=== PATIENT | female | born 1980 | race Two or more races ===

== ENCOUNTER 2016-07-30 12:28 | Emergency (ER) | payer OTHER ==
[2016-07-30 12:39] VITALS: BP 116/73; PULSE 81; TEMP 98.3; BMI 18.6
[2016-07-30] MEDS ORDERED: NAPROXEN 500 MG TABLET (FP) PO ONE (13:11)
[2016-07-30] MEDS ORDERED: NAPROXEN 500 MG TABLET (FP) ONE (13:15)
--- NOTE | 2016-07-30 13:16 | PDOC ---
History of Present Illness - General Chief Complaint: Pain Stated Complaint: RT ARM PAIN Time Seen by Provider: 07/30/16 12:59 History Source: Patient Exam Limitations: No Limitations - History of Present Illness Initial Comments: 07/30/16 13:11 My Chief Compliant: Right arm pain History of present illness: This is a 36-year-old female with no significant medical problems For right-sided carpal tunnel syndrome here today complaining of right upper arm pain that radiates down to her hand patient reports that she has numbness in her hand in the morning however she's had this since having carpal tunnel syndrome. Patient denies any neck pain. Patient denies any joint pain in her right arm and elbow or shoulder or hand. Patient has been taking Naprosyn 250 mg daily did not take today. Patient reports that this pain started after she was doing a lot of moving a few weeks ago of furniture and things since she had to move. 07/31/16 19:39 Timing/Duration: constant Past History - Past Medical History Allergies/Adverse Reactions: Allergies Allergy/AdvReac Type Severity Reaction Status Date / Time No Known Allergies Allergy Verified 07/30/16 12:36 Home Medications: Ambulatory Orders Sumatriptan Succinate [Imitrex -] 50 mg PO BID PRN 03/30/15 Naproxen [Naprosyn -] 500 mg PO BID PRN #14 tablet 07/30/16 Anemia: Yes - Psycho/Social/Smoking Cessation Hx Anxiety: Yes Suicidal Ideation: No Smoking Status: No Smoking History: Never smoked Have you smoked in the past 12 months: No Number of Cigarettes Smoked Daily: 0 Information on smoking cessation initiated: No Hx Alcohol Use: No Drug/Substance Use Hx: No Substance Use Type: None Review of Systems - Review of Systems Able to Perform ROS?: Yes Constitutional: No: Symptoms Reported HEENTM: No: Symptoms Reported Respiratory: No: Symptoms reported Cardiac (ROS): No: Symptoms Reported ABD/GI: No: Symptoms Reported : No: Symptoms Reported Musculoskeletal: Yes: Muscle Pain (rt. arm muscular pain upper and lower) Integumentary: No: Symptoms Reported Neurological: Yes: Paresthesia (rt. hand in morning) *Physical Exam - Vital Signs Last Vital Signs Temp Pulse Resp BP Pulse Ox 98.3 F 81 18 116/73 100 07/30/16 12:37 07/30/16 12:37 07/30/16 12:37 07/30/16 12:37 07/30/16 12:37 - Physical Exam General Appearance: Yes: Appropriately Dressed Neck: negative: Tender, Decreased range of motion, Lymphadenopathy (R), Lymphadenopathy (L), Rigidity, Tender lateral, Tender midline Comments:: 07/30/16 13:15 radial pulse rt. 4 + Extremity: positive: Normal Capillary Refill, Normal Inspection, Normal Range of Motion, Tender (rt upper arm and forearm muscular). negative: Swelling Integumentary: positive: Normal Color Neurologic: positive: Alert, Respond to painful stimul (rt. hand arm ), Other ( decreased strenght rt. hand 5/4) Medical Decision Making - Medical Decision Making 07/30/16 13:13 This is a 36-year-old female with no significant medical problems For right- sided carpal tunnel syndrome here today complaining of right upper arm pain that radiates down to her hand patient reports that she has numbness in her hand in the morning however she's had this since having carpal tunnel syndrome. Patient denies any neck pain. Patient denies any joint pain in her right arm and elbow or shoulder or hand. Patient has been taking Naprosyn 250 mg daily did not take today. Arm strain right Plan: Naprosyn 500 mg by mouth now then twice a day when necessary pain #14 Patient follow-up with orthopedist for further evaluation *DC/Admit/Observation/Transfer Diagnosis at time of Disposition: Strain of right upper arm Qualifiers: Encounter type: initial encounter Qualified Code(s): S46.911A - Strain of unspecified muscle, fascia and tendon at shoulder and upper arm level, right arm , initial encounter Strain of forearm, right Qualifiers: Encounter type: initial encounter Qualified Code(s): S56.911A - Strain of unspecified muscles, fascia and tendons at forearm level, right arm, initial encounter - Discharge Dispostion Disposition: HOME Condition at time of disposition: Stable - Prescriptions Prescriptions: Naproxen [Naprosyn -] 500 mg PO BID PRN #14 tablet PRN Reason: Pain - Referrals Referrals: Piotr Otoole MD [Staff Physician] - - Patient Instructions Additional Instructions: Follow-up with orthopedist as soon as possible for further evaluation Return to emergency room for worsening symptoms Avoid using right arm for lifting or pulling Patient voice understanding of discharge instructions and will questions were answered
== END 2016-07-30 14:10 | disposition home or self-care (01) ==
LOC: JERFT 12:28
DX: S46.911A Strain of unspecified muscle, fascia and tendon at shoulder and upper arm level, right arm, initial encounter (principal); S56.911A Strain of unspecified muscles, fascia and tendons at forearm level, right arm, initial encounter; G56.01 Carpal tunnel syndrome, right upper limb; X50.1XXA Overexertion from prolonged static or awkward postures, initial encounter; Y93.89 Activity, other specified; Y92.038 Other place in apartment as the place of occurrence of the external cause
CPT/HCPCS: 99281-25

== ENCOUNTER 2016-09-07 22:16 | Emergency (ER) | payer OTHER ==
[2016-09-07 22:33] VITALS: BP 102/50; PULSE 83; TEMP 97.8; BMI 18.6
[2016-09-07] MEDS ORDERED: IBUPROFEN 600 MG TABLET (FP) PO ONE ×2 (23:30→23:33)
--- NOTE | 2016-09-07 23:30 | PDOC ---
History of Present Illness - General History Source: Patient Exam Limitations: No Limitations - History of Present Illness Initial Comments: 09/07/16 23:32 The patient is a 36 year old female with no significant past medical history, presenting to the Emergency Department with chest pain since this morning. The patient reports that she woke up this morning at about 8AM with chest tightness. She reports that through the day the chest pain became worse, for which she took advil. She describes the pain as at her chest, sternum, and breasts, exacerbated by twisting movements. She reports that she has previously had similar symptoms, and previously was told that her EKG reading is abnormal at baseline. The patient denies shortness of breath, or palpitations. Patient denies increased levels of activity. Patient denies fever, chills, or cough. Patient denies neck pain, or back pain. Patient denies nausea, vomiting, and diarrhea. Past Medical Hx: scoliosis <Heavenly Brenal - Last Filed: 09/08/16 00:00> <Natacha Salazar - Last Filed: 09/08/16 21:19> - General Chief Complaint: Chest Pain Stated Complaint: CHEST PAIN Time Seen by Provider: 09/07/16 22:33 Past History <Heavenly Bernal - Last Filed: 09/08/16 00:00> - Past Medical History Anemia: Yes - Psycho/Social/Smoking Cessation Hx Anxiety: Yes Suicidal Ideation: No Smoking Status: No Smoking History: Never smoked Have you smoked in the past 12 months: No Number of Cigarettes Smoked Daily: 0 Hx Alcohol Use: No Drug/Substance Use Hx: No Substance Use Type: None <Natacha Salazar - Last Filed: 09/08/16 21:19> - Past Medical History Allergies/Adverse Reactions: Allergies Allergy/AdvReac Type Severity Reaction Status Date / Time No Known Allergies Allergy Verified 09/07/16 22:26 Home Medications: Ambulatory Orders Sumatriptan Succinate [Imitrex -] 50 mg PO BID PRN 03/30/15 Naproxen [Naprosyn -] 500 mg PO BID PRN #14 tablet 07/30/16 Ibuprofen [Motrin -] 600 mg PO TID #21 tablet 09/07/16 Methocarbamol [Robaxin -] 500 mg PO TID #21 tablet 09/07/16 Review of Systems - Review of Systems Able to Perform ROS?: Yes Comments:: 09/07/16 23:32 GENERAL/CONSTITUTIONAL: No fever or chills. No weakness. HEAD, EYES, EARS, NOSE AND THROAT: No change in vision. No ear pain or discharge. No sore throat. CARDIOVASCULAR: + chest pain. No shortness of breath. RESPIRATORY: No cough, wheezing, or hemoptysis. GASTROINTESTINAL: No nausea, vomiting, diarrhea or constipation. GENITOURINARY: No dysuria, frequency, or change in urination. MUSCULOSKELETAL: No joint or muscle swelling or pain. No neck or back pain. SKIN: No rash NEUROLOGIC: No headache, vertigo, loss of consciousness, or change in strength/ sensation. ENDOCRINE: No increased thirst. No abnormal weight change. HEMATOLOGIC/LYMPHATIC: No anemia, easy bleeding, or history of blood clots. ALLERGIC/IMMUNOLOGIC: No hives or skin allergy. <Heavenly Bernal - Last Filed: 09/08/16 00:00> *Physical Exam - Vital Signs Last Vital Signs Temp Pulse Resp BP Pulse Ox 97.8 F 83 16 102/50 100 09/07/16 22:27 09/07/16 22:27 09/07/16 22:27 09/07/16 22:27 09/07/16 22:27 - Physical Exam Comments: 09/07/16 23:33 GENERAL: Awake, alert, and fully oriented, in no acute distress HEAD: No signs of trauma EYES: PERRLA, EOMI, sclera anicteric, conjunctiva clear ENT: Auricles normal inspection, hearing grossly normal, nares patent, oropharynx clear without exudates. Moist mucosa NECK: Normal ROM, supple, no lymphadenopathy, JVD, or masses LUNGS: Breath sounds equal, clear to auscultation bilaterally. No wheezes, and no crackles HEART: Regular rate and rhythm, normal S1 and S2, no murmurs, rubs or gallops CHEST: Tenderness of sternum and xiphoid. ABDOMEN: Soft, nontender, normoactive bowel sounds. No guarding, no rebound. No masses EXTREMITIES: Normal range of motion, no edema. No clubbing or cyanosis. No cords, erythema, or tenderness NEUROLOGICAL: Cranial nerves II through XII grossly intact. Normal speech, normal gait SKIN: Warm, Dry, normal turgor, no rashes or lesions noted. <Heavenly Bernal - Last Filed: 09/08/16 00:00> - Vital Signs Last Vital Signs Temp Pulse Resp BP Pulse Ox 97.8 F 83 16 102/50 100 09/07/16 22:27 09/07/16 22:27 09/07/16 22:27 09/07/16 22:27 09/07/16 22:27 <Natacha Salazar - Last Filed: 09/08/16 21:19> Medical Decision Making - Medical Decision Making 09/08/16 21:18 Pt comes with CP and SOB. She has normal CXR (except for scoliosis) and on exam pt has scoliosis and admits that she has a hx of scoliosis. She also has normal EKG. She has a normal exam. He pain is musculoskeletal. SHe will be discharged with NSAID and muscle relaxants. <Natacha Salazar - Last Filed: 09/08/16 21:19> *DC/Admit/Observation/Transfer - Attestations Scribe Attestion: 09/07/16 23:35 Documentation prepared by Heavenly Bernal, acting as medical territory manager for Natacha Salazar MD. <Heavenly Bernal - Last Filed: 09/08/16 00:00> - Discharge Dispostion Admit: No <Natacha Salazar - Last Filed: 09/08/16 21:19> Diagnosis at time of Disposition: Musculoskeletal chest pain, Scoliosis - Discharge Dispostion Disposition: HOME Condition at time of disposition: Stable - Prescriptions Prescriptions: Ibuprofen [Motrin -] 600 mg PO TID #21 tablet Methocarbamol [Robaxin -] 500 mg PO TID #21 tablet - Referrals Referrals: Latosha Darling MD [Primary Care Provider] - - Patient Instructions Printed Discharge Instructions: DI for Musculoskeletal Pain
--- NOTE | 2016-09-09 00:43 | EKG ---
Test Reason : Blood Pressure : / mmHG Vent. Rate : 085 BPM Atrial Rate : 085 BPM P-R Int : 126 ms QRS Dur : 092 ms QT Int : 366 ms P-R-T Axes : 059 066 053 degrees QTc Int : 435 ms NORMAL SINUS RHYTHM T WAVE ABNORMALITY, CONSIDER ANTERIOR ISCHEMIA ABNORMAL ECG WHEN COMPARED WITH ECG OF 21-AUG-2006 11:07, NO SIGNIFICANT CHANGE WAS FOUND Confirmed by BINH COLLINS MD ([id number]) on 09/09/2016 12:43:04 AM Referred By: Confirmed By:BINH COLLINS MD
== END 2016-09-08 00:04 | disposition home or self-care (01) ==
LOC: JER 22:16
DX: R07.89 Other chest pain (principal); M41.9 Scoliosis, unspecified
CPT/HCPCS: 71020-TC; 84703; 93005; 93010; 99283-25

== ENCOUNTER 2017-05-21 18:26 | Emergency (ER) | payer OTHER ==
[2017-05-21 18:43] VITALS: BP 126/70; PULSE 88; TEMP 97.4; BMI 18.6
--- NOTE | 2017-05-21 18:43 | PDOC ---
Rapid Medical Evaluation Chief Complaint: Pain Time Seen by Provider: 05/21/17 18:40 Medical Evaluation: Allergies Allergy/AdvReac Type Severity Reaction Status Date / Time No Known Allergies Allergy Verified 09/07/16 22:26 05/21/17 18:41 I have performed a brief in-person evaluation of this patient. The patient presents with a chief complaint of: Cough w/ pleuritic chest pain. Uses albuterol for URI associated bronshospasm. Non-smoker Pertinent physical exam findings:stable w/ clear chest/lungs I have ordered the following:nothing, proceed to FT for further eval The patient will proceed to the ED for further evaluation.
[2017-05-21] MEDS ORDERED: ALBUTEROL SO4 2.5/IPRATROPIUM 0.5 INH SOL 3 ML VIAL.NEB. NEB ONE (20:16)
[2017-05-21] MEDS ORDERED: predniSONE 20 MG TABLET (UD) PO ONE (20:16)
[2017-05-21] MEDS ORDERED: predniSONE 20 MG TABLET (UD) ONE (20:23)
--- NOTE | 2017-05-21 20:23 | PDOC ---
History of Present Illness - General Chief Complaint: Pain Stated Complaint: PAIN Time Seen by Provider: 05/21/17 18:40 History Source: Patient Exam Limitations: No Limitations - History of Present Illness Initial Comments: 05/21/17 20:17 came for evaluation of cough and chest tightness x 1 week. States felt fevers ad chills over weekend and coughing yellowish phlegm,. Timing/Duration: reports: getting worse, week Severity: reports: mild, moderate Modifying Factors: improves with: albuterol nebulizer Associated Symptoms: reports: cough, fever/chills, nasal congestion, nasal drainage, wheezing Past History - Travel Traveled outside of the country in the last 30 days: No Close contact w/someone who was outside of country & ill: No - Past Medical History Allergies/Adverse Reactions: Allergies Allergy/AdvReac Type Severity Reaction Status Date / Time No Known Allergies Allergy Verified 05/21/17 18:43 Home Medications: Ambulatory Orders Albuterol 0.083% Nebulizer Karlee [Ventolin 0.083% Nebulizer Soln -] 1 neb NEB Q4H PRN #30 vial 05/21/17 Azithromycin [Zithromax -] 250 mg PO UTDICT #6 tab 05/21/17 Prednisone [Deltasone -] 20 mg PO BID #10 tablet 05/21/17 Anemia: Yes COPD: No - Suicide/Smoking/Psychosocial Hx Smoking Status: No Smoking History: Never smoked Have you smoked in the past 12 months: No Number of Cigarettes Smoked Daily: 0 Hx Alcohol Use: No Drug/Substance Use Hx: No Substance Use Type: None Respiratory Specific PMHX - Complaint Specific PMHX Bronchitis: No Pneumonia: No Review of Systems - Review of Systems Able to Perform ROS?: Yes Is the patient limited Cypriot proficient: Yes Constitutional: Yes: Symptoms Reported, See HPI, Chills, Fever, Malaise HEENTM: Yes: Symptoms Reported Respiratory: Yes: Symptoms reported, See HPI, Cough, Shortness of Breath, Wheezing Musculoskeletal: Yes: Symptoms Reported All Other Systems: Reviewed and Negative *Physical Exam - Vital Signs Last Vital Signs Temp Pulse Resp BP Pulse Ox 97.4 F L 88 20 126/70 97 05/21/17 18:40 05/21/17 18:40 05/21/17 18:40 05/21/17 18:40 05/21/17 18:40 - Physical Exam General Appearance: Yes: Nourished, Appropriately Dressed, Apparent Distress HEENT: positive: JARRELL, Normal ENT Inspection, TMs Normal, Pharynx Normal Neck: positive: Supple. negative: Tender, Lymphadenopathy (R), Lymphadenopathy (L) Respiratory/Chest: positive: Normal Breath Sounds, Wheezing (tight insp breathsounds with faint wheezing ) Cardiovascular: positive: Regular Rate Gastrointestinal/Abdominal: positive: Soft. negative: Tender Extremity: positive: Normal Inspection, Normal Range of Motion Integumentary: positive: Normal Color, Dry, Warm, Pale Neurologic: positive: literary writer II-XII NML intact, Fully Oriented, Alert, Normal Mood/ Affect, Normal Response, Motor Strength /5 Progress Note - Progress Note Progress Note: Improved after 40 mg of prednisone and DuoNeb. We'll treat with short course of prednisone continue albuterol nebulizers at home and Zithromax *DC/Admit/Observation/Transfer Diagnosis at time of Disposition: Upper respiratory infection Qualifiers: URI type: unspecified URI Qualified Code(s): J06.9 - Acute upper respiratory infection, unspecified - Discharge Dispostion Disposition: HOME Condition at time of disposition: Stable Admit: No - Prescriptions Prescriptions: Prednisone [Deltasone -] 20 mg PO BID #10 tablet Albuterol 0.083% Nebulizer Karlee [Ventolin 0.083% Nebulizer Soln -] 1 neb NEB Q4H PRN #30 vial PRN Reason: Cough Azithromycin [Zithromax -] 250 mg PO UTDICT #6 tab - Referrals Referrals: Latosha Darling MD [Primary Care Provider] - - Patient Instructions Printed Discharge Instructions: DI for Acute Bronchitis Additional Instructions: Rest, drink lots of fluids: Teas, water, soups, Pedialyte Saltwater gargles Steamy showers/seem to face break up mucus Avoid contact with others until fevers and cough resolved Lots of handwashing and good hygiene Continue [id number] medications for symptomatic relief Tylenol or Motrin for fever and pain Continue albuterol nebulizers every 4-6 hours for the next 2 days then as needed for continued cough Prednisone as directed until completed Azithromycin as directed Followup with private physician in one to 2 days Return to emergency department / pediatric hospital for worsened symptoms, fevers, dehydration - Post Discharge Activity Forms/Work/School Notes: Back to Work
== END 2017-05-21 20:48 | disposition home or self-care (01) ==
LOC: JERFT 18:26
PROC: 3E0F7GC Introduction of Other Therapeutic Substance into Respiratory Tract, Via Natural or Artificial Opening (ICD-10-PCS; principal; 2017-05-21)
DX: J06.9 Acute upper respiratory infection, unspecified (principal)
CPT/HCPCS: 99281-25

== ENCOUNTER 2018-01-14 13:09 | Day surgery (SDC) | payer OTHER ==
[2018-01-14 10:18] VITALS: BMI 20.2
[2018-01-14] MEDS ORDERED: PROPOFOL 20 ML ONE ×2 (13:58)
[2018-01-14 14:33] VITALS: TEMP 98.2
[2018-01-14 14:59] VITALS: BP 107/82; PULSE 71
--- NOTE | 2018-01-16 17:29 | PATH ---
Surgical Pathology Report Patient Name: GARRICK GONCALVES [facility]. Rec. #: [id number] /Age/Gender: 1980 (Age: 37) / F Account: [id number] Location: U-ENDOSCOPY Taken: 01/14/2018 Received: 01/15/2018 Reported: 01/16/2018 Physicians: Chris Brown M.D. Specimen(s) Received A: BX DUODENUM B: BX DISTAL ANTRUM ULCER C: BX BODY OF STOMACH ERYTHEMA D: BX THICKENED FOLD GE JUNCTION Clinical History Rule out submucosal mass in cardia, epigastric pain Postoperative diagnosis: Erythema, ulcer, thickened fold GE junction Final Diagnosis A. DUODENUM, BIOPSY: DUODENAL MUCOSA WITH MILD CHRONIC DUODENITIS. B. DISTAL ANTRUM ULCER, BIOPSY: GASTRIC MUCOSA WITH ACTIVE CHRONIC GASTRITIS. IMMUNOSTAIN IS NEGATIVE FOR H. PYLORI ORGANISMS. C. BODY OF STOMACH ERYTHEMA, BIOPSY: GASTRIC MUCOSA WITH MILD CHRONIC GASTRITIS. IMMUNOSTAIN IS NEGATIVE FOR H. PYLORI ORGANISMS. D. THICKENED FOLD GE JUNCTION, BIOPSY: GLANDULAR MUCOSA WITH ACTIVE CHRONIC INFLAMMATION AND FOVEOLAR HYPERPLASTIC CHANGE. NO INTESTINAL METAPLASIA. Electronically Signed Katty Tompkins M.D. Gross Description A. Received in formalin, labeled "duodenum" is a segundo, irregular portion of soft tissue measuring 0.4 cm. in greatest dimension. The specimen is submitted in toto in one cassette. B. Received in formalin, labeled "distal antrum ulcer" is a segundo, irregular portion of soft tissue measuring 0.4 cm. in greatest dimension. The specimen is submitted in toto in one cassette. C. Received in formalin, labeled "body of stomach" are 2 segundo, irregular portions of soft tissue measuring 0.2 and 0.5 cm. in greatest dimension. The specimens are submitted in toto in one cassette. D. Received in formalin, labeled "GE junction thickened fold" are 3 segundo, irregular portions of soft tissue ranging from 0.2-0.3 cm. in greatest dimension. The specimens are submitted in toto in one cassette. 01/15/201801/15/2018
== END 2018-01-14 15:41 | disposition home or self-care (01) ==
LOC: JASU-ENDO 13:09
PROVIDERS: ATTEND Internal Medicine Gastroenterology
PROC: 0DB68ZX Excision of Stomach, Via Natural or Artificial Opening Endoscopic, Diagnostic (ICD-10-PCS; 2018-01-14)
PROC: 0DB48ZX Excision of Esophagogastric Junction, Via Natural or Artificial Opening Endoscopic, Diagnostic (ICD-10-PCS; 2018-01-14)
PROC: 0DB98ZX Excision of Duodenum, Via Natural or Artificial Opening Endoscopic, Diagnostic (ICD-10-PCS; principal; 2018-01-14 14:00)
DX: K25.9 Gastric ulcer, unspecified as acute or chronic, without hemorrhage or perforation (principal)
CPT/HCPCS: 84703

== ENCOUNTER 2018-07-09 21:28 | Emergency (ER) | payer OTHER ==
[2018-07-09 21:39] VITALS: BP 107/69; PULSE 94; TEMP 97.8; BMI 21.2
--- NOTE | 2018-07-09 21:40 | PDOC ---
Rapid Medical Evaluation Medical Evaluation: Allergies Allergy/AdvReac Type Severity Reaction Status Date / Time No Known Allergies Allergy Verified 05/26/17 20:14 I have performed a brief in-person evaluation of this patient. The patient presents with a chief complaint of: hx , tubal ligation, PUD presents with epigastric pain radiating to back x few weeks, getting progressively worse. Denies fever, n/v/d, urinary complaints. Is taking Dexilant , which was helping, but was not helping today. Last endoscopy around 3 months ago; was on abx (Flagyl). Pertinent physical exam findings: In NAD, abdomen soft, ND, NT The patient will proceed to the ED for further evaluation. 07/09/18 21:32
--- NOTE | 2018-07-09 21:56 | PDOC ---
History of Present Illness - General Chief Complaint: Pain Stated Complaint: UPPER ABDOMINAL PAIN Time Seen by Provider: 07/09/18 21:48 History Source: Patient Exam Limitations: No Limitations - History of Present Illness Initial Comments: Patient is a 38-year-old female who is followed up by gastroenterology is a known history of gastric ulcers who states that she has abdominal pain. She denies nausea or vomiting. Denies fever. Bowel movement are within normal limits. Patient describes the pain as a throb and rates at a 5 out of 10. She states that this is her typical pain. Denies aggravating or relieving factors. 07/09/18 21:52 Past History - Travel Traveled outside of the country in the last 30 days: No Close contact w/someone who was outside of country & ill: No - Past Medical History Allergies/Adverse Reactions: Allergies Allergy/AdvReac Type Severity Reaction Status Date / Time No Known Allergies Allergy Verified 07/09/18 21:36 Home Medications: Ambulatory Orders Gabapentin [Neurontin -] 300 mg PO DAILY 01/14/18 Nortriptyline HCl [Pamelor -] 50 mg PO PRN 01/14/18 Sertraline HCl 50 mg PO DAILY 01/14/18 Dexlansoprazole [Dexilant] 60 mg PO DAILY 07/09/18 Divalproex [Depakote -] 250 mg PO DAILY 07/09/18 Duloxetine HCl 20 mg PO ASDIR 07/09/18 Hydrocodone/Acetaminophen [Etters 5-325 Tablet] 1 each PO TID #6 tablet MDD 3 traZODone HCL [Trazodone HCl] 50 mg PO ASDIR 07/09/18 Anemia: Yes Asthma: No Cancer: No Cardiac Disorders: No CVA: No COPD: No CHF: No Dementia: No Diabetes: No GI Disorders: Yes (ULCERS AND) Disorders: No HTN: No Hypercholesterolemia: No Liver Disease: No Seizures: No Thyroid Disease: No - Surgical History Abdominal Surgery: No Appendectomy: No Cardiac Surgery: No Cholecystectomy: No Lung Surgery: No Neurologic Surgery: No Orthopedic Surgery: No - Suicide/Smoking/Psychosocial Hx Smoking Status: No Smoking History: Never smoked Have you smoked in the past 12 months: No Number of Cigarettes Smoked Daily: 0 Information on smoking cessation initiated: No Hx Alcohol Use: No Drug/Substance Use Hx: No Substance Use Type: None Hx Substance Use Treatment: No Review of Systems - Review of Systems Able to Perform ROS?: Yes Constitutional: No: Chills, Fever ABD/GI: No: Abdominal Distended, Constipated, Diarrhea, Rectal Bleeding, Indigestion, Abdominal cramping All Other Systems: Reviewed and Negative *Physical Exam - Vital Signs Last Vital Signs Temp Pulse Resp BP Pulse Ox 97.8 F 94 H 18 107/69 100 07/09/18 21:36 07/09/18 21:36 07/09/18 21:36 07/09/18 21:36 07/09/18 21:36 - Physical Exam Comments: Constitutional: VS stated, pt appears in no apparent distress; sitting in chair. Skin: Warm and dry. Intact, no lesions or excoriations. Head: Normocephalic; atraumatic Eyes: conjunctiva pink without injection or discharge Throat: Oropharynx with pink and moist mucosa. Lungs: Bilateral breath sounds clear upon auscultation. No adventitious breath sounds. Heart: Regular rate and rhythm, Abdomen: Soft and non-tender. Bowel sounds present in all 4 quadrants, no hepatosplenomegaly, No bruits auscultated. No guarding or rebound. No masses or visible pulsations present. No suprapubic tenderness. No CVAT. No bruits. Musculoskeletal: Moves all extremities without difficulty Neurologic: Awake, alert. Conversation fluent. 07/09/18 21:53 Moderate Sedation - Procedure Monitoring Vital Signs: Procedure Monitoring Vital Signs Temperature 97.8 F 07/09/18 21:36 Pulse Rate 94 H 07/09/18 21:36 Respiratory Rate 18 07/09/18 21:36 Blood Pressure 107/69 07/09/18 21:36 O2 Sat by Pulse Oximetry (%) 100 07/09/18 21:36 Medical Decision Making - Medical Decision Making 07/09/18 21:54 Pt's PE and VS are WNL, I will give her pain medication and have her f/u with GI *DC/Admit/Observation/Transfer Diagnosis at time of Disposition: Abdominal pain Qualifiers: Abdominal location: generalized Qualified Code(s): R10.84 - Generalized abdominal pain - Discharge Dispostion Disposition: HOME Condition at time of disposition: Stable Decision to Admit order: No - Prescriptions Prescriptions: Hydrocodone/Acetaminophen [Etters 5-325 Tablet] 1 each PO TID #6 tablet MDD 3 - Referrals Referrals: Latosha Darling MD [Primary Care Provider] - - Patient Instructions Printed Discharge Instructions: DI for Abdominal Pain-Adult Additional Instructions: F/U with GI and take pain med as directed. - Post Discharge Activity
== END 2018-07-09 22:00 | disposition home or self-care (01) ==
LOC: JERFT 21:28
DX: R10.13 Epigastric pain (principal)
CPT/HCPCS: 99281-25

== ENCOUNTER 2018-07-18 15:22 | Emergency (ER) | payer OTHER ==
[2018-07-18 15:29] VITALS: BP 100/65; PULSE 94; TEMP 98; BMI 21.2
--- NOTE | 2018-07-18 16:03 | PDOC ---
History of Present Illness - General Chief Complaint: Pain Stated Complaint: RT WRIST PAIN Time Seen by Provider: 07/18/18 15:48 History Source: Patient - History of Present Illness Initial Comments: 07/18/18 16:15 38 year old with right wrist pain x4 days. denies trauma/ injury. reports pain is worse to right thumb and with cell phone use. denies numbness or tingling no pmhx Past History - Past Medical History Allergies/Adverse Reactions: Allergies Allergy/AdvReac Type Severity Reaction Status Date / Time No Known Allergies Allergy Verified 07/18/18 15:29 Home Medications: Ambulatory Orders Gabapentin [Neurontin -] 300 mg PO DAILY 01/14/18 Nortriptyline HCl [Pamelor -] 50 mg PO PRN 01/14/18 Sertraline HCl 50 mg PO DAILY 01/14/18 Dexlansoprazole [Dexilant] 60 mg PO DAILY 07/09/18 Divalproex [Depakote -] 250 mg PO DAILY 07/09/18 Duloxetine HCl 20 mg PO ASDIR 07/09/18 Hydrocodone/Acetaminophen [Mclain 5-325 Tablet] 1 each PO TID #6 tablet MDD 3 traZODone HCL [Trazodone HCl] 50 mg PO ASDIR 07/09/18 Ibuprofen 600 mg PO QID PRN #20 tablet 07/18/18 Anemia: Yes Asthma: No Cancer: No Cardiac Disorders: No CVA: No COPD: No CHF: No Dementia: No Diabetes: No GI Disorders: Yes (ULCERS AND) Disorders: No HTN: No Hypercholesterolemia: No Liver Disease: No Seizures: No Thyroid Disease: No - Surgical History Abdominal Surgery: No Appendectomy: No Cardiac Surgery: No Cholecystectomy: No Lung Surgery: No Neurologic Surgery: No Orthopedic Surgery: No - Suicide/Smoking/Psychosocial Hx Smoking Status: No Smoking History: Never smoked Have you smoked in the past 12 months: No Number of Cigarettes Smoked Daily: 0 Hx Alcohol Use: No Drug/Substance Use Hx: No Substance Use Type: None Hx Substance Use Treatment: No Review of Systems - Review of Systems Able to Perform ROS?: Yes Is the patient limited German proficient: No Constitutional: No: Symptoms Reported, See HPI, Chills, Diaphoresis, Fever, Loss of Appetite, Malaise, Night Sweats, Weakness, Weight Stable, Unintentional Wgt. Loss, Unexplained wgt Loss, Other Musculoskeletal: Yes: Other (wrist pain) *Physical Exam - Vital Signs Last Vital Signs Temp Pulse Resp BP Pulse Ox 98 F 94 H 18 100/65 100 07/18/18 15:26 07/18/18 15:26 07/18/18 15:26 07/18/18 15:26 07/18/18 15:26 - Physical Exam General Appearance: Yes: Appropriately Dressed Neck: positive: Other Gastrointestinal/Abdominal: positive: Normal Bowel Sounds, Soft Extremity: positive: Normal Capillary Refill, Normal Inspection, Normal Range of Motion, Other (pain to right wrist proximal to right thumb with pain with movement of thumb. no ROM) Integumentary: positive: Normal Color, Dry, Warm Neurologic: positive: Fully Oriented, Alert, Normal Mood/Affect Moderate Sedation - Procedure Monitoring Vital Signs: Procedure Monitoring Vital Signs Temperature 98 F 07/18/18 15:26 Pulse Rate 94 H 07/18/18 15:26 Respiratory Rate 18 07/18/18 15:26 Blood Pressure 100/65 07/18/18 15:26 O2 Sat by Pulse Oximetry (%) 100 07/18/18 15:26 Medical Decision Making - Medical Decision Making 07/18/18 16:23 A: right wrist pain 07/18/18 16:29 no wrist fracture *DC/Admit/Observation/Transfer Diagnosis at time of Disposition: Wrist pain, right - Discharge Dispostion Disposition: HOME - Prescriptions Prescriptions: Ibuprofen 600 mg PO QID PRN #20 tablet PRN Reason: Pain - Referrals Referrals: Latosha Darling MD [Primary Care Provider] - Facundo Horton DO [Staff Physician] - Call tomorrow - Patient Instructions Printed Discharge Instructions: DI for Wrist Pain Additional Instructions: keep wrist in splint Rest ICe elevate follow up with an orthopedic doctor as soon as possible. - Post Discharge Activity Forms/Work/School Notes: Back to Work
[2018-07-18] MEDS ORDERED: IBUPROFEN 600 MG TABLET (FP) PO ONE ×2 (16:41→16:46)
== END 2018-07-18 16:51 | disposition home or self-care (01) ==
LOC: JERFT 15:22
PROC: 2W3CX1Z Immobilization of Right Lower Arm using Splint (ICD-10-PCS; principal; 2018-07-18)
DX: M25.531 Pain in right wrist (principal)
CPT/HCPCS: 73110-TC-RT-FY; 99281-25

== ENCOUNTER 2018-07-27 04:53 | Day surgery (SDC) | payer OTHER ==
[2018-07-23 12:57] VITALS: BMI 20.5
--- NOTE | 2018-07-27 13:15 | HP ---
History & Physical Update - History History: No Change - Physical Physical: No Change - Assessment Assessment: No Change - Plan Plan: No Change (Agree with H&P from 07/24/18, plan for D&C and HTA endometrial ablation for AUB)
[2018-07-27] MEDS ORDERED: IBUPROFEN 600 MG TABLET (FP) PO PRN (13:16)
[2018-07-27] MEDS ORDERED: LACTATED RINGERS SOLUTION 1,000 ML IV SCH (13:30)
[2018-07-27] MEDS ORDERED: MIDAZOLAM HCL 2 MG/2 ML SINGLE DOSE VIAL ONE (13:55)
[2018-07-27] MEDS ORDERED: oxyCODONE HCL 5 MG TABLET PO PRN (13:57)
[2018-07-27] MEDS ORDERED: ONDANSETRON 4 MG/2 ML VIAL IVPUSH PRN (13:57)
--- NOTE | 2018-07-27 14:12 | HP ---
Admitting History and Physical - Admission Chief Complaint: Abnormal bleeding. History of Present Illness: 38 y/o female with h/o tubal ligation and abnormal bleeding who has failed hormonal therapy is admitted today for a scheduled endometrial ablation. History Source: Patient, Medical Record Limitations to Obtaining History: No Limitations - Past Medical History Cardiovascular: Yes: Other ("abnormal EKG" which was worked up by cardiology - cardiology cleared patient for surgery). No: HTN Renal/: No: UTI Reproductive: Yes: Fibroids. No: Ectopic , PID ...LMP: 07/18/18 ...LMP Comment: DEPO SHOTS ...: No Heme/Onc: Yes: Anemia (2/2 heavy periods) Psych: Yes: Anxiety, Depression Endocrine: No: Diabetes Insipidus, Diabetes Mellitus - Past Surgical History Past Surgical History: Yes: Tubal Ligation - Smoking History Smoking history: Never smoked Have you smoked in the past 12 months: No Aproximately how many cigarettes per day: 0 - Alcohol/Substance Use Hx Alcohol Use: No History of Substance Use: reports: None - Social History ADL: Independent History of Recent Travel: No Home Medications - Allergies Allergies/Adverse Reactions: Allergies Allergy/AdvReac Type Severity Reaction Status Date / Time No Known Allergies Allergy Verified 07/18/18 15:29 - Home Medications Home Medications: Ambulatory Orders Dexlansoprazole [Dexilant] 60 mg PO DAILY 07/09/18 Divalproex [Depakote -] 500 mg PO HS 07/09/18 Duloxetine HCl 20 mg PO ASDIR 07/09/18 traZODone HCL [Trazodone HCl] 50 mg PO ASDIR 07/09/18 Duloxetine HCl [Cymbalta] 20 mg PO DAILY 07/23/18 Ibuprofen [Motrin -] 600 mg PO QID PRN #28 tablet 07/27/18 Physical Examination Vital Signs: Vital Signs Temperature 98.6 F 07/27/18 12:52 Pulse Rate 97 H 07/27/18 12:52 Respiratory Rate 20 07/27/18 12:52 Blood Pressure 108/70 07/27/18 12:52 O2 Sat by Pulse Oximetry (%) 100 07/27/18 12:52 Constitutional: Yes: Well Nourished, No Distress, Calm HENT: Yes: Atraumatic, Normocephalic Neck: Yes: WNL Cardiovascular: Yes: WNL Respiratory: Yes: Regular Gastrointestinal: Yes: Normal Bowel Sounds, Soft Extremities: Yes: WNL Neurological: Yes: Alert, Oriented Psychiatric: Yes: Alert, Oriented Problem List - Problems (1) Abnormal uterine bleeding Code(s): N93.9 - ABNORMAL UTERINE AND VAGINAL BLEEDING, UNSPECIFIED Assessment/Plan Plan for HTA endometrial ablation consents signed in office 07/24/18 R/B/A discussed risks including bleeding/infection/uterine perforation/ post op pain discussed questions answered pt still desires procedure consents reconfirmed today
[2018-07-27] MEDS ORDERED: LIDOCAINE HCL/PF 2% SDV 5ML VIAL ONE (14:13)
[2018-07-27] MEDS ORDERED: DEXAMETHASONE SOD PHOSPHATE 4 MG/1 ML VIAL ONE (14:13)
[2018-07-27] MEDS ORDERED: PROPOFOL 20 ML ONE (14:15)
[2018-07-27] MEDS ORDERED: KETOROLAC TROMETHAMINE 30 MG/1 ML VIAL ONE (14:43)
[2018-07-27] MEDS ORDERED: ACETAMINOPHEN 1000 MG/100 ML VIAL (NON FORMULARY) IVPB ONE (16:07)
[2018-07-27] MEDS ORDERED: ACETAMINOPHEN INJECTION 100 ML IVPB ONE (16:09)
[2018-07-27] MEDS ORDERED: ONDANSETRON 4 MG/2 ML VIAL ONE ×2 (16:18→18:07)
[2018-07-27] MEDS ORDERED: oxyCODONE HCL 5 MG TABLET ONE (17:07)
[2018-07-27] MEDS ORDERED: ONDANSETRON 4 MG/2 ML VIAL IVPB ONE (18:00)
[2018-07-27 19:21] VITALS: BP 116/50; PULSE 80; TEMP 97.6
--- NOTE | 2018-07-28 07:00 | OP ---
Operative Note - Note: Operative Date: 07/27/18 (dictation [id number]) Pre-Operative Diagnosis: abnormal uterine bleedinh Operation: D&C, HTA endometrial ablation Findings: small intracavitary polyp Post-Operative Diagnosis: Same as Pre-op (with small intracavitary uterine polyp ) Surgeon: Radha Bowen Anesthesiologist/CONTAINER FINISHER: Pio Guerrero Anesthesia: General Specimens Removed: endometrial curettings Estimated Blood Loss (mls): 5 Operative Report Dictated: Yes
--- NOTE | 2018-07-28 08:19 | OP ---
DATE OF OPERATION: 07/27/2018 PREOPERATIVE DIAGNOSIS: Abnormal uterine bleeding. POSTOPERATIVE DIAGNOSES: Abnormal uterine bleeding with intracavitary uterine polyp. PROCEDURE: Dilatation and curettage and hydrothermal ablation endometrial ablation. SURGEON: Radha Bowen DO ANESTHESIA: General by Pio Guerrero MD. ESTIMATED BLOOD LOSS: 5 mL. COMPLICATIONS: None. DISPOSITION: Stable to PACU. COUNTS: Sponge and instrument count correct after the case. BRIEF HISTORY AND PROCEDURE: Patient is a 38-year-old female who had been seen in the office with complaints of abnormal bleeding for many years and attempted Depo-Provera injections as well as other hormonal and medical interventions without success. The patient was given options and elected to undergo an HTA endometrial ablation procedure. The patient signed consents for the procedure in the office , was then admitted to [facility] on July 27, 2018. Consents were reconfirmed. She was taken back to the operating room, given general anesthesia, and placed in dorsal lithotomy position. She was prepped and draped in the usual sterile fashion. A hard timeout was performed. First, the D&C was performed and the specimen was sent to Pathology for frozen specimen and the call back from the pathologist revealed benign pathology. Next, the camera was inserted for diagnostic hysteroscopy, and a small endometrial polyp was noted which had been partially detached with the D&C procedure. Otherwise, no other intracavitary lesions were appreciated at this time. Bilateral tubal ostia were noted. After confirmation of intrauterine placement of the device and also confirmation of theablation device at the appropriate height, the HTA ablation was initiated and completed without difficulty under direct visualization. All instruments were then removed from the uterine cavity. One final look with the hysteroscope revealed no evidence of uterine perforation, with adequate ablation of the uterine lining. All instruments removed from the vagina. Counts were reported to be correct. The patient was awoken from anesthesia and recovering in stable condition in the PACU after the procedure. RADHA BOWEN DO /[id number] MTDD
--- NOTE | 2018-07-28 10:21 | PATH ---
Surgical Pathology Report Patient Name: GARRICK GONCALVES [facility]. Rec. #: [id number] /Age/Gender: 1980 (Age: 38) / F Account: [id number] Location: [facility] SUR[facility]ICAL Taken: 07/27/2018 Received: 07/27/2018 Reported: 07/28/2018 Physicians: Radha Bowen M.D. Specimen(s) Received ENDOMETRIAL CURETTINGS Clinical History Menorrhagia Intraoperative Consult Diagnosis Endometrial curettings, frozen section: Scant polypoid fragments of weakly proliferative endometrium without significant cytologic atypia. Rom Leon M.D., 07/27/2018 Final Diagnosis ENDOMETRIAL CURETTINGS, DILATION AND CURETTAGE (FS): SCANT FRAGMENTS OF POLYPOID WEAKLY PROLIFERATIVE ENDOMETRIUM SUGGESTIVE OF ENDOMETRIAL POLYP AND BENIGN ENDOCERVICAL TISSUE ADMIXED WITH MUCUS. Electronically Signed Homa Schwartz M.D. Gross Description Received fresh labeled "endometrial curettings," is a 1.1 x 1.0 x 0.2 cm aggregate of segundo-red soft tissue fragments. The specimen is submitted in toto for frozen section. The frozen section residue is entirely submitted in one cassette. DL/07/27/201807/27/2018
== END 2018-07-27 19:40 | disposition home or self-care (01) ==
LOC: JASU-SURG 04:53
PROVIDERS: ATTEND Obstetrics & Gynecology
PROC: 0UDB7ZX Extraction of Endometrium, Via Natural or Artificial Opening, Diagnostic (ICD-10-PCS; 2018-07-27)
PROC: 0U5B8ZZ Destruction of Endometrium, Via Natural or Artificial Opening Endoscopic (ICD-10-PCS; principal; 2018-07-27 14:00)
DX: N93.9 Abnormal uterine and vaginal bleeding, unspecified (principal); N84.0 Polyp of corpus uteri
CPT/HCPCS: 88305-TC; 88331-TC; 94760; J0131

== ENCOUNTER 2018-12-26 09:02 | Emergency (ER) | payer OTHER | END 2018-12-26 10:07 | disposition home or self-care (01) | LOC: JER 09:02 → JERFT 10:07 ==

== ENCOUNTER 2019-01-10 14:25 | Emergency (ER) | payer OTHER ==
[2019-01-10 14:35] VITALS: BP 108/70; PULSE 97; TEMP 98.5; BMI 21.2
[2019-01-10] MEDS ORDERED: IBUPROFEN 600 MG TABLET (FP) PO ONE ×2 (14:53→14:56)
--- NOTE | 2019-01-10 14:53 | PDOC ---
History of Present Illness - General Chief Complaint: Sore Throat Stated Complaint: EAR PAIN/ SORE THROAT Time Seen by Provider: 01/10/19 14:40 History Source: Patient Exam Limitations: No Limitations Past History - Travel Close contact w/someone who was outside of country & ill: No - Past Medical History Allergies/Adverse Reactions: Allergies Allergy/AdvReac Type Severity Reaction Status Date / Time No Known Allergies Allergy Verified 01/10/19 14:35 Home Medications: Ambulatory Orders Divalproex [Depakote -] 500 mg PO BID 07/09/18 traZODone HCL [Trazodone HCl] 50 mg PO HS 07/09/18 Acetaminophen [Arthritis Pain Relief] 650 mg PO QID #20 tablet.er 12/26/18 Buspirone HCl [Buspar -] 10 mg PO TID 12/26/18 Fluticasone Prop 0.05% Nasal [Flonase -] 1 - 2 spray NS DAILY #1 spray.pump Ibuprofen 600 mg PO Q6H #30 tablet 01/10/19 Anemia: Yes Asthma: No Cancer: No Cardiac Disorders: No CVA: No COPD: No CHF: No Dementia: No Diabetes: No GI Disorders: Yes (ULCERS AND) Disorders: No HTN: No Hypercholesterolemia: No Liver Disease: No Seizures: No Thyroid Disease: No - Surgical History Abdominal Surgery: No Appendectomy: No Cardiac Surgery: No Cholecystectomy: No Lung Surgery: No Neurologic Surgery: No Orthopedic Surgery: No - Suicide/Smoking/Psychosocial Hx Smoking Status: No Smoking History: Never smoked Have you smoked in the past 12 months: No Number of Cigarettes Smoked Daily: 0 Hx Alcohol Use: No Drug/Substance Use Hx: No Substance Use Type: None Hx Substance Use Treatment: No Review of Systems - Review of Systems Able to Perform ROS?: Yes Comments:: 01/10/19 14:58 CONSTITUTIONAL: Absent: fever, chills, diaphoresis, generalized weakness, malaise, loss of appetite HEENT: Present: ear pain, sore throat Absent: rhinorrhea, nasal congestion, throat swelling, difficulty swallowing, mouth swelling, eye pain, visual Changes CARDIOVASCULAR: Absent: chest pain, loss of consciousness, palpitations, irregular heart rate, peripheral edema RESPIRATORY: Absent: cough, shortness of breath, dyspnea with exertion, orthopnea, wheezing, stridor, hemoptysis SKIN: Absent: rash, itching, pallor NEUROLOGIC: Absent: headache, focal weakness or paresthesias, dizziness, unsteady gait, seizure, mental status changes, bladder or bowel incontinence PSYCHIATRIC: Absent: anxiety, depression, suicidal or homicidal ideation, hallucinations. Is the patient limited Swedish proficient: No *Physical Exam - Vital Signs Last Vital Signs Temp Pulse Resp BP Pulse Ox 98.5 F 97 H 18 108/70 99 01/10/19 14:33 01/10/19 14:33 01/10/19 14:33 01/10/19 14:33 01/10/19 14:33 - Physical Exam Comments: 01/10/19 15:00 GENERAL: The patient is awake, alert, and fully oriented, in no acute distress. HEAD: Normal with no signs of trauma. EYES: Pupils equal, round and reactive to light, extraocular movements intact, sclera anicteric, conjunctiva clear. HEENT: No nasal congestion or rhinorrhea. No sinus Tenderness. Mucous membranes are moist. No tonsillar erythema, exudate or edema. Uvula is midline. No TM bulging , dullness or erythema. EXTREMITIES: Normal range of motion, no edema. NEUROLOGICAL: Normal speech, normal gait. PSYCH: Normal mood, normal affect. SKIN: Warm, Dry, normal turgor, no rashes or lesions noted. Medical Decision Making - Medical Decision Making 01/10/19 15:01 the patient is a 38-year-old female past medical history of anxiety, who presents to the ER today for 2 days of sore throat, earache and subjective fevers. She states that her children are home last week with ear infections. She states it hurts to swallow. Denies rhinorrhea, chills, difficulty breathing , shortness of breath nausea vomiting and diarrhea. A/P: Pharyngitis/earache On exam no exudate or edema. No TM bulging, erythema. Given that the children were sick and the patient has a fever at home, will perform rapid strep test. Motrin given for symptomatically relief Reevaluate 01/10/19 15:40 Rapid strep negative, most likely a viral illness DC home with supportive therapy I discussed the physical exam findings, ancillary test results and final diagnoses with the patient. I answered all of the patient's questions. The patient was satisfied with the care received and felt comfortable with the discharge plan and treatment plan. The Patient agrees to follow up with the primary care physician/specialist within 24-72 hours. Return precautions were given. *DC/Admit/Observation/Transfer Diagnosis at time of Disposition: Pharyngitis Qualifiers: Pharyngitis/tonsillitis etiology: unspecified etiology Qualified Code(s): J02.9 - Acute pharyngitis, unspecified - Discharge Dispostion Disposition: HOME Condition at time of disposition: Stable Decision to Admit order: No - Referrals Referrals: Latosha Darling MD [Primary Care Provider] - - Patient Instructions Printed Discharge Instructions: DI for Viral Pharyngitis Additional Instructions: You have a sore throat or pharyngitis. Rapid strep testing was negative today. You may take Motrin 600 mg every 6 hours as needed for pain. Please do warm water gargles and cough drops to help with your pain. Change your toothbrush when you started feeling better. Follow-up with your primary care doctor. Return to the ER for fever, difficulty breathing, difficulty swallowing, or if you have any changes in your symptoms. - Post Discharge Activity Forms/Work/School Notes: Back to Work
== END 2019-01-10 15:43 | disposition home or self-care (01) ==
LOC: JERFT 14:25
DX: J02.9 Acute pharyngitis, unspecified (principal)
CPT/HCPCS: 87070; 87880; 99282-25

== ENCOUNTER 2019-03-31 10:04 | Emergency (ER) | payer OTHER ==
[2019-03-31 10:23] VITALS: BP 124/78; PULSE 85; TEMP 98.3; BMI 21.2
--- NOTE | 2019-03-31 11:06 | PDOC ---
History of Present Illness - General Chief Complaint: Pain Stated Complaint: BURNING SENSATION IN CHEST Time Seen by Provider: 03/31/19 10:34 History Source: Patient - History of Present Illness Presenting Symptoms: Chest Pain Timing/Duration: reports: intermittent Past History - Past Medical History Allergies/Adverse Reactions: Allergies Allergy/AdvReac Type Severity Reaction Status Date / Time No Known Allergies Allergy Verified 03/31/19 10:18 Home Medications: Ambulatory Orders Divalproex [Depakote -] 500 mg PO BID 07/09/18 traZODone HCL [Trazodone HCl] 50 mg PO HS 07/09/18 Acetaminophen [Arthritis Pain Relief] 650 mg PO QID #20 tablet.er 12/26/18 Buspirone HCl [Buspar -] 10 mg PO TID 12/26/18 Fluticasone Prop 0.05% Nasal [Flonase -] 1 - 2 spray NS DAILY #1 spray.pump Ibuprofen 600 mg PO Q6H #30 tablet 01/10/19 Anemia: Yes Asthma: No Cancer: No Cardiac Disorders: No CVA: No COPD: No CHF: No Dementia: No Diabetes: No GI Disorders: Yes (ULCERS AND) Disorders: No HTN: No Hypercholesterolemia: No Liver Disease: No Seizures: No Thyroid Disease: No - Surgical History Abdominal Surgery: No Appendectomy: No Cardiac Surgery: No Cholecystectomy: No Lung Surgery: No Neurologic Surgery: No Orthopedic Surgery: No - Suicide/Smoking/Psychosocial Hx Smoking Status: No Smoking History: Never smoked Have you smoked in the past 12 months: No Number of Cigarettes Smoked Daily: 0 Information on smoking cessation initiated: Yes Hx Alcohol Use: No Drug/Substance Use Hx: No Substance Use Type: None Hx Substance Use Treatment: No Cardiac Specific PMH - Complaint Specific PMHX Pacemaker: No Review of Systems - Review of Systems Constitutional: No: Chills, Fever Respiratory: No: Shortness of Breath Cardiac (ROS): Yes: Chest Pain. No: Lightheadedness, Palpitations, Syncope ABD/GI: No: Nausea, Vomiting *Physical Exam - Vital Signs Last Vital Signs Temp Pulse Resp BP Pulse Ox 98.3 F 85 18 124/78 100 03/31/19 10:19 03/31/19 10:19 03/31/19 10:19 03/31/19 10:03/31/19 10:19 - Physical Exam General Appearance: Yes: Appropriately Dressed. No: Apparent Distress HEENT: positive: Normal Voice Neck: positive: Supple Respiratory/Chest: positive: Lungs Clear, Normal Breath Sounds. negative: Respiratory Distress Cardiovascular: positive: Regular Rate, S1, S2 Gastrointestinal/Abdominal: positive: Soft. negative: Tender Integumentary: positive: Dry, Warm Neurologic: positive: Fully Oriented, Alert, Normal Mood/Affect ED Treatment Course - ADDITIONAL ORDERS Additional order review: Laboratory Results 03/31/19 11:44 Creatine Kinase 39 Troponin I < 0.02 Medical Decision Making - Medical Decision Making 03/31/19 11:03 38 yo F, no sig hx, here w/ chest pain. Dates for the past several days had had substernal chest pain that radiates under her breasts bilaterally. Unable to describe. Intermittent and worsens with deep inspiration, otherwise no shortness of breath and no diaphoresis, nausea, vomiting, palpitations, leg pain or swelling. No history of similar pain. No obvious risk factors for DVT , PE. No illicit drug use. see exam CP No RF for ACS or DVT/PE Stable and well nolberto w/ nl exam EKG done and unremarkable as d/w ED attg Stable for dc w/ PMD f/u 03/31/19 11:32 EKG w/ TWI in lead V2 and V3, similar to EKG in 2017. Case d/w ED attg who recommends 1 trop today and if neg, pt can be discharged to f/u 03/31/19 12:31 Trop neg. Pt stable for discharge to f/u with her PMD as needed *DC/Admit/Observation/Transfer Diagnosis at time of Disposition: Chest pain Qualifiers: Chest pain type: unspecified Qualified Code(s): R07.9 - Chest pain, unspecified - Discharge Dispostion Disposition: HOME Condition at time of disposition: Good - Referrals Referrals: Latosha Darling MD [Primary Care Provider] - - Patient Instructions Additional Instructions: The cause of your chest pain is unclear at this time, but your EKG Please follow-up with your PMD if pain persists - Post Discharge Activity Forms/Work/School Notes: Back to Work
--- NOTE | 2019-03-31 13:28 | EKG ---
Test Reason : Blood Pressure : / mmHG Vent. Rate : 086 BPM Atrial Rate : 086 BPM P-R Int : 122 ms QRS Dur : 090 ms QT Int : 358 ms P-R-T Axes : 053 050 046 degrees QTc Int : 428 ms NORMAL SINUS RHYTHM T WAVE ABNORMALITY, CONSIDER ANTERIOR ISCHEMIA ABNORMAL ECG WHEN COMPARED WITH ECG OF 07-SEP-2016 22:22, NO SIGNIFICANT CHANGE WAS FOUND Confirmed by RUBA QUIROGA, ZORAIDA ([id number]) on 03/31/2019 1:27:48 PM Referred By: Confirmed By:ZORAIDA YEH MD
--- NOTE | 2019-03-31 14:05 | PDOC ---
*Physical Exam - Vital Signs Last Vital Signs Temp Pulse Resp BP Pulse Ox 98.3 F 85 18 124/78 100 03/31/19 10:19 03/31/19 10:19 03/31/19 10:19 03/31/19 10:19 03/31/19 10:19 ED Treatment Course - ADDITIONAL ORDERS Additional order review: Laboratory Results 03/31/19 11:44 Creatine Kinase 39 Troponin I < 0.02 Medical Decision Making - Medical Decision Making 03/31/19 14:02 38 yo F presenting with a complaint of chest pain Pt has had substernal chest pain for several days No shortness of breath Pt seen by Midlevel Provider under my direct supervision Pt interviewed and examined Ancillary studies reviewed Laboratory Tests 03/31/19 11:44 Creatine Kinase 39 Troponin I < 0.02 EKG - NSR rate of 86 bpm, axis nml, intervals nml, t wave inversion v2,v3 (seen in prior EKG) I agree with plan as outlined by Midlevel Provider 03/31/19 14:03 03/31/19 14:05 03/31/19 14:06 *DC/Admit/Observation/Transfer Diagnosis at time of Disposition: Chest pain Qualifiers: Chest pain type: unspecified Qualified Code(s): R07.9 - Chest pain, unspecified - Discharge Dispostion Disposition: HOME Condition at time of disposition: Good - Referrals Referrals: Latosha Darling MD [Primary Care Provider] - - Patient Instructions Additional Instructions: The cause of your chest pain is unclear at this time, but your EKG Please follow-up with your PMD if pain persists - Post Discharge Activity Forms/Work/School Notes: Back to Work
== END 2019-03-31 12:34 | disposition home or self-care (01) ==
LOC: JER 10:04
DX: R07.9 Chest pain, unspecified (principal)
CPT/HCPCS: 36415; 82550; 84484; 93005; 93010; 99281-25

== ENCOUNTER 2019-05-02 06:19 | Inpatient (IN) | payer OTHER ==
[2019-05-02 07:18] LABS: BASO % 0.2 % (0-2.0); HEMATOCRIT 40.9 % (32.4-45.2); HEMOGLOBIN 13.8 GM/dL (10.7-15.3); LYMPH % 44.5 % (8-40); MCH 32.3 pg (25.7-33.7); MCHC 33.7 g/dl (32.0-36.0); MEAN CELL VOLUME 95.7 fl (80-96); MEAN PLT VOLUME 9.1 fl (7.5-11.1); MONO % 8.5 % (3.8-10.2); NEUT % 46.8 % (42.8-82.8); PLATELET COUNT 180 K/MM3 (134-434); RBC 4.27 M/mm3 (3.60-5.2); RDW 12.7 % (11.6-15.6)
--- NOTE | 2019-05-02 07:18 | PDOC ---
History of Present Illness - General Chief Complaint: Pain, Acute Stated Complaint: BACK PAIN Time Seen by Provider: 05/02/19 07:18 - History of Present Illness Initial Comments: 05/02/19 07:36 Ms. Kelly is a 38 yo female w/ pmh of anxiety/depression and previous kidney stone requiring lithotripsy who presents for evaluation of L sided flank pain radiating to her abdomen that started at approximately 3am this morning. Patient reports this feels like her previous kidney stone. Endorses only pain at this time. The patient denies chest pain, shortness of breath, headache and dizziness. Denies fever, chills, nausea, vomit, diarrhea and constipation. Past History - Past Medical History Allergies/Adverse Reactions: Allergies Allergy/AdvReac Type Severity Reaction Status Date / Time No Known Allergies Allergy Verified 03/31/19 10:18 Home Medications: Ambulatory Orders Divalproex [Depakote -] 500 mg PO BID 07/09/18 traZODone HCL [Trazodone HCl] 50 mg PO HS 07/09/18 Acetaminophen [Arthritis Pain Relief] 650 mg PO QID #20 tablet.er 12/26/18 Buspirone HCl [Buspar -] 10 mg PO TID 12/26/18 Fluticasone Prop 0.05% Nasal [Flonase -] 1 - 2 spray NS DAILY #1 spray.pump Ibuprofen 600 mg PO Q6H #30 tablet 01/10/19 Anemia: Yes Asthma: No Cancer: No Cardiac Disorders: No CVA: No COPD: No CHF: No Dementia: No Diabetes: No GI Disorders: Yes (ULCERS AND) Disorders: No HTN: No Hypercholesterolemia: No Liver Disease: No Seizures: No Thyroid Disease: No - Surgical History Abdominal Surgery: No Appendectomy: No Cardiac Surgery: No Cholecystectomy: No Lung Surgery: No Neurologic Surgery: No Orthopedic Surgery: No - Psycho Social/Smoking Cessation Hx Smoking Status: No Smoking History: Never smoked Have you smoked in the past 12 months: No Number of Cigarettes Smoked Daily: 0 Hx Alcohol Use: No Drug/Substance Use Hx: No Substance Use Type: None Hx Substance Use Treatment: No Review of Systems - Review of Systems Comments:: 05/02/19 07:36 GENERAL/CONSTITUTIONAL: No fever or chills. No weakness. HEAD, EYES, EARS, NOSE AND THROAT: No change in vision. No ear pain or discharge. No sore throat. CARDIOVASCULAR: No chest pain or shortness of breath RESPIRATORY: No cough, wheezing, or hemoptysis. GASTROINTESTINAL: +L sided flank pain as described. No nausea, vomiting, diarrhea or constipation. GENITOURINARY: No dysuria, frequency, or change in urination. MUSCULOSKELETAL: No joint or muscle swelling or pain. No neck or back pain. SKIN: No rash NEUROLOGIC: No headache, vertigo, loss of consciousness, or change in strength/ sensation. ENDOCRINE: No increased thirst. No abnormal weight change HEMATOLOGIC/LYMPHATIC: No anemia, easy bleeding, or history of blood clots. ALLERGIC/IMMUNOLOGIC: No hives or skin allergy. *Physical Exam - Vital Signs Last Vital Signs Temp Pulse Resp BP Pulse Ox 97.8 F 84 18 122/83 100 05/02/19 06:34 05/02/19 06:34 05/02/19 06:34 05/02/19 06:34 05/02/19 06:34 - Physical Exam Comments: 05/02/19 07:36 GENERAL: Awake, alert, and fully oriented, in no acute distress HEAD: No signs of trauma, normocephalic, atraumatic EYES: PERRLA, EOMI, sclera anicteric, conjunctiva clear ENT: Auricles normal inspection, hearing grossly normal, nares patent, oropharynx clear without exudates. Moist mucosa NECK: Normal ROM, supple, no lymphadenopathy, JVD, or masses LUNGS: No distress, speaks full sentences, clear to auscultation bilaterally HEART: Regular rate and rhythm, normal S1 and S2, no murmurs, rubs or gallops, peripheral pulses normal and equal bilaterally. ABDOMEN: +L flank and lower quadrant abdominal pain. Soft, normoactive bowel sounds. No guarding, no rebound. No masses EXTREMITIES: Normal inspection, Normal range of motion, no edema. No clubbing or cyanosis. NEUROLOGICAL: Cranial nerves II through XII grossly intact. Normal speech, normal gait, no focal sensorimotor deficits SKIN: Warm, Dry, normal turgor, no rashes or lesions noted. ED Treatment Course - LABORATORY CBC & Chemistry Diagram: 05/02/19 06:55 05/02/19 06:55 Medical Decision Making - Medical Decision Making 05/02/19 08:31 Ms. Kelly is a 38 yo female w/ pmh as described who presents for evaluation of symptoms concerning for nephrolithiasis vs. pyelo vs. other intra-abdominal process. Patient evaluation started w/ labs as below as well as CT spiral and UA /UCx. 05/02/19 09:51 CT significant for mild to moderate left hydroureteronephrosis seen to the level of the lower pelvis w/ 0.5cm x 0.3cm semiopaque distal left ureteral calculus 1.5 cm from the ureterovesicular junction. Urology consulted. Patient requesting continued evaluation in hospital for pain control at this time. 05/02/19 10:11 Discussed patient with urology who agree w/ admission given size of stone and patient's previous history. Suggest fluids as well as flomax and straining urine with morning US if needed. Patient admitted to hospitalist team. Discharge - Discharge Information Problems reviewed: Yes Clinical Impression/Diagnosis: Nephrolithiasis - Admission Yes - Follow up/Referral Referrals: Latosha Darling MD [Primary Care Provider] - - Patient Discharge Instructions - Post Discharge Activity
[2019-05-02] MEDS ORDERED: KETOROLAC TROMETHAMINE 15 MG/ML VIAL IVPUSH ONE ×2 (07:27→08:18)
[2019-05-02] MEDS ORDERED: KETOROLAC TROMETHAMINE 15 MG/ML VIAL ONE ×2 (07:28→08:23)
[2019-05-02] MEDS ORDERED: SODIUM CHLORIDE 1,000 ML IV STA (07:28)
[2019-05-02 07:35] LABS: ALBUMIN 3.6 g/dl (3.4-5.0); BILIRUBIN,TOTAL 0.7 mg/dL (0.2-1); BLOOD UREA NITROGEN 11.2 mg/dL (7-18); CALCIUM 8.7 mg/dL (8.5-10.1); CREATININE 0.8 mg/dL (0.55-1.3); POTASSIUM 3.5 mmol/L (3.5-5.1); TOT PROT 6.5 g/dl (6.4-8.2)
[2019-05-02] MEDS ORDERED: morphine CARPU-JECT 2 MG/1 ML DISP.SYRIN IVPUSH ONE ×3 (07:39→10:14)
[2019-05-02] MEDS ORDERED: MORPHINE SULFATE 2 MG/ML VIAL ONE ×3 (07:40→10:21)
[2019-05-02] MEDS ORDERED: ONDANSETRON 4 MG/2 ML VIAL IVPUSH ONE (07:40)
[2019-05-02] MEDS ORDERED: ONDANSETRON 4 MG/2 ML VIAL ONE (08:23)
[2019-05-02 08:28] LABS: EPI CELLS 3.9 /HPF (0-5/HPF); HYALINE CASTS 8 /lpf (0-8); PH,URINE 7.5 (5.0-8.0); URINE APPEARANCE CLEAR; URINE BACTERIA 36.1 /hpf (NEGATIVE); URINE BILIRUBIN NEGATIVE (NEGATIVE); URINE COLOR YELLOW; URINE GLUCOSE (UA) NEGATIVE (NEGATIVE); URINE KETONE 1+ (NEGATIVE); URINE LEUK ESTERASE NEGATIVE (NEGATIVE); URINE NITRITE NEGATIVE (NEGATIVE); URINE PROTEIN TRACE (NEGATIVE); URINE RBC 8 /hpf (0-4); URINE WBC 1 /hpf (0-5)
[2019-05-02] MEDS ORDERED: TAMSULOSIN HCL 0.4 MG CAP PO ONE (10:16)
[2019-05-02] MEDS ORDERED: TAMSULOSIN HCL 0.4 MG CAP ONE (10:21)
--- NOTE | 2019-05-02 10:30 | HP ---
CHIEF COMPLAINT: flank pain HISTORY OF PRESENT ILLNESS: 38 year old female with a history of renal stone presents for acute onset, 04/29 , left sided flank pain for 1 day duration that radiates around to the left groin. Reports that it is associated with some nausea. States that she has had this pain in the past when she had a kidney stone that she got ESWL for. Denies any fevers, chills, nausea, vomiting, diarrhea, abdominal pain, chest pain, shortness of breath. Reports that the toradol and morphine in the ED has helped. Denies recent travel or sick contacts. ER course was notable for: (1) CT notable for 0.5x0.3cm stone in the distal left ureter, 1.5cm from level of ureterovesical junction (2) (3) Recent Travel: denies PAST MEDICAL HISTORY: L sided renal stone PAST SURGICAL HISTORY: C section 2006, prior ESWL Social History: Smoking: denies ever Alcohol: denies Drugs: denies Family Hx: father passed from enlarged heart Allergies No Known Allergies Allergy (Verified 03/31/19 10:18) HOME MEDICATIONS: Home Medications Medication Instructions Recorded Divalproex [Depakote -] 500 mg PO BID 07/09/18 traZODone HCL [Trazodone HCl] 50 mg PO HS 07/09/18 Acetaminophen [Arthritis Pain 650 mg PO QID #20 tablet.er 12/26/18 Relief] Buspirone HCl [Buspar -] 10 mg PO TID 12/26/18 Fluticasone Prop 0.05% Nasal 1 - 2 spray NS DAILY #1 spray.pump 01/10/19 [Flonase -] Ibuprofen 600 mg PO Q6H #30 tablet 01/10/19 REVIEW OF SYSTEMS CONSTITUTIONAL: Absent: fever, chills, diaphoresis, generalized weakness, malaise, loss of appetite, weight change HEENT: Absent: rhinorrhea, nasal congestion, throat pain, throat swelling, difficulty swallowing, mouth swelling, ear pain, eye pain, visual changes CARDIOVASCULAR: Absent: chest pain, syncope, palpitations, irregular heart rate, lightheadedness , peripheral edema RESPIRATORY: Absent: cough, shortness of breath, dyspnea with exertion, orthopnea, wheezing, stridor, hemoptysis GASTROINTESTINAL: Absent: abdominal pain, abdominal distension, nausea, vomiting, diarrhea, constipation, melena, hematochezia GENITOURINARY: flank pain Absent: dysuria, frequency, urgency, hesitancy, hematuria, genital pain MUSCULOSKELETAL: Absent: myalgia, arthralgia, joint swelling, back pain, neck pain SKIN: Absent: rash, itching, pallor HEMATOLOGIC/IMMUNOLOGIC: Absent: easy bleeding, easy bruising, lymphadenopathy, frequent infections ENDOCRINE: Absent: unexplained weight gain, unexplained weight loss, heat intolerance, cold intolerance NEUROLOGIC: Absent: headache, focal weakness or paresthesias, dizziness, unsteady gait, seizure, mental status changes, bladder or bowel incontinence PSYCHIATRIC: Absent: anxiety, depression, suicidal or homicidal ideation, hallucinations. PHYSICAL EXAMINATION Vital Signs - 24 hr 05/02/19 05/02/19 06:34 09:56 Temperature 97.8 F 97.9 F Pulse Rate 84 Pulse Rate [ 67 Right] Respiratory 18 16 Rate Blood Pressure 122/83 Blood Pressure 101/61 [Right Arm] O2 Sat by Pulse 100 99 Oximetry (%) GENERAL: A&Ox3, no acute distress EYES: PERRLA, EOMI ENT: Moist mucus membranes NECK: No JVD LUNGS: CTA, no wheezes HEART: RRR, no murmurs ABDOMEN: Soft, mildly tender to palpation in the LLQ, BS present MUSCULOSKELETAL: (+) CVA tenderness on the left EXTREMITIES: 2+ pulses, no edema. NEUROLOGICAL: Cranial nerves II-XII intact. Laboratory Results - last 24 hr 05/02/19 05/02/19 05/02/19 06:55 06:55 08:08 WBC 7.0 RBC 4.27 Hgb 13.8 Hct 40.9 D MCV 95.7 MCH 32.3 D MCHC 33.7 RDW 12.7 D Plt Count 180 D MPV 9.1 Absolute Neuts (auto) 3.3 Neutrophils % 46.8 D Lymphocytes % 44.5 H D Monocytes % 8.5 Eosinophils % 0.0 D Basophils % 0.2 Nucleated RBC % 0 Sodium 142 Potassium 3.5 Chloride 107 Carbon Dioxide 25 Anion Gap 10 BUN 11.2 Creatinine 0.8 Est GFR (CKD-EPI)AfAm 108.39 Est GFR (CKD-EPI)NonAf 93.52 Random Glucose 118 H Calcium 8.7 Total Bilirubin 0.7 AST 10 L ALT 15 Alkaline Phosphatase 72 Total Protein 6.5 Albumin 3.6 Serum , Qual Negative Urine Color Urine Appearance Urine pH Ur Specific Calvin Urine Protein Urine Glucose (UA) Urine Ketones Urine Blood Urine Nitrite Urine Bilirubin Urine Urobilinogen Ur Leukocyte Esterase Urine WBC (Auto) Urine RBC (Auto) Urine Casts (Auto) U Epithel Cells (Auto) Urine Bacteria (Auto) 05/02/19 08:17 WBC RBC Hgb Hct MCV MCH MCHC RDW Plt Count MPV Absolute Neuts (auto) Neutrophils % Lymphocytes % Monocytes % Eosinophils % Basophils % Nucleated RBC % Sodium Potassium Chloride Carbon Dioxide Anion Gap BUN Creatinine Est GFR (CKD-EPI)AfAm Est GFR (CKD-EPI)NonAf Random Glucose Calcium Total Bilirubin AST ALT Alkaline Phosphatase Total Protein Albumin Serum , Qual Urine Color Yellow Urine Appearance Clear Urine pH 7.5 Ur Specific Calvin 1.024 Urine Protein Trace Urine Glucose (UA) Negative Urine Ketones 1+ H Urine Blood Trace Urine Nitrite Negative Urine Bilirubin Negative Urine Urobilinogen 1.0 Ur Leukocyte Esterase Negative Urine WBC (Auto) 1 Urine RBC (Auto) 8 Urine Casts (Auto) 8 U Epithel Cells (Auto) 3.9 Urine Bacteria (Auto) 36.1 ASSESSMENT/PLAN: 38 year old female with a history of renal stone presents for acute onset, 04/29 , left sided flank pain for 1 day duration that radiates around to the left groin and admitted for evaluation and management of L sided renal calculus #Nephrolithiasis: patient has a 0.5x0.3cm stone in the distal ureter 1.5cm up from UVJ and is experiencing similar symptoms to what she had the previous time she had a renal stone -IV fluids with LR @ 125cc/hr -toradol Q6h PRN pain (1-6 in severity) -morphine 2mg Q6h PRN pain (7-10 in severity) -flomax 0.4mg daily -Dr. Rosenda Jones consulted #Depression/Anxiety: chronic -continue buspar, depakote, trazadone #FEN -LR @ 100cc/hr -lytes wnl -regular diet #Prophylaxis -SCDs #Disposition -admit med surg Visit type - Emergency Visit Emergency Visit: Yes ED Registration Date: 05/02/19 Care time: The patient presented to the Emergency Department on the above date and was hospitalized for further evaluation of their emergent condition. - New Patient This patient is new to me today: Yes Date on this admission: 05/02/19 - Critical Care Critical Care patient: No ATTENDING PHYSICIAN STATEMENT I saw and evaluated the patient. I reviewed the resident's note and discussed the case with the resident. I agree with the resident's findings and plan as documented. SUBJECTIVE: OBJECTIVE: ASSESSMENT AND PLAN:
[2019-05-02] MEDS ORDERED: TAMSULOSIN HCL 0.4 MG CAP PO SCH (10:45)
--- NOTE | 2019-05-02 11:12 | PDOC ---
Attending Attestation - Resident Resident Name: Arturo Camilo - ED Attending Attestation I have performed the following: I have examined & evaluated the patient, The case was reviewed & discussed with the resident, I agree w/resident's findings & plan, Exceptions are as noted - HPI HPI: 05/02/19 11:10 38 female history of previous renal colic 3 today complaining of left flank pain radiating to the groin. Patient states her symptoms started early a.m. woke up from sleep does feel similar to previous kidney stones denies any dysuria or frequency but felt a pressure sensation when she had to urinate denies any fevers or chills did have some mild associated nausea no vomiting no other current complaints - Physicial Exam PE: 05/02/19 11:10 Awake alert no acute distress lungs are clear bilaterally heart is regular without murmurs rubs or gallops abdomen is soft there is mild suprapubic tenderness CVA tenderness extremities are warm well perfused skin is warm and dry patient is awake alert oriented x3 - Medical Decision Making 05/02/19 11:11 38-year-old female history of renal colic here today complaining of left flank pain rating to the groin story consistent with recurrent kidney stone on exam has minimal suprapubic tenderness will rule out concomitant infection or other pathology. Plan CT abdomen pelvis to the patient's history of requiring lithotripsy in the past for size of the stone UA basic labs Patient does have a 5 mm stone 1/2 cm from the UVJ on the left there is mild to moderate hydro-patient's urologist Dr. Carr was consulted agrees with admission for pain control we will see the patient in the hospital recommended admission to the medicine team
[2019-05-02] MEDS: LACTATED RINGERS SOLUTION 1,000 ML IV SCH (11:30)
[2019-05-02] MEDS ORDERED: ACETAMINOPHEN 1000 MG/100 ML VIAL (NON FORMULARY) IVPB ONE (11:47)
[2019-05-02] MEDS ORDERED: ACETAMINOPHEN INJECTION 100 ML IVPB ONE (11:47)
[2019-05-02] MEDS ORDERED: PT OWN MED DRAWER 7, Y5N ONE (13:10)
[2019-05-02] MEDS: KETOROLAC TROMETHAMINE 15 MG/ML VIAL IVPUSH PRN ×2 (13:27→19:54)
[2019-05-02] MEDS ORDERED: busPIRone HCL 10 MG TABLET (FP) PO SCH (14:00)
--- NOTE | 2019-05-02 15:04 | PN ---
Teaching Attending Note Name of Resident: Khari Arriola ATTENDING PHYSICIAN STATEMENT I saw and evaluated the patient. I reviewed the resident's note and discussed the case with the resident. I agree with the resident's findings and plan as documented. SUBJECTIVE: Patient is a 38yo female with a PMHx of renal stone presents for acute onset, , left sided flank pain for 1 day duration that radiates to the left groin. associated with some nausea. Denies any fever or chills. OBJECTIVE: Vital Signs Temperature 97.9 F 05/02/19 09:56 Pulse Rate 67 05/02/19 09:56 Respiratory Rate 16 05/02/19 09:56 Blood Pressure 101/61 05/02/19 09:56 O2 Sat by Pulse Oximetry (%) 99 05/02/19 09:56 GENERAL: The patient is awake, alert, and fully oriented, in no acute distress. HEAD: Normal with no signs of trauma. EYES: PERRL, extraocular movements intact, sclera anicteric, conjunctiva clear. ENT: Ears normal, oropharynx clear without exudates, moist mucous membranes. NECK: Trachea midline, full range of motion, supple. LUNGS: Breath sounds equal, clear to auscultation bilaterally, no wheezes, no crackles, no accessory muscle use. HEART: Regular rate and rhythm, S1, S2 without murmur, rub or gallop. ABDOMEN: Soft, NT,ND, normoactive bowel sounds, no guarding, no rebound, no hepatosplenomegaly, no masses.NO CVA tenderness EXTREMITIES: 2+ pulses, warm, well-perfused, no edema. NEUROLOGICAL: Cranial nerves II through XII grossly intact. Normal speech, gait not observed. PSYCH: Normal mood, normal affect. SKIN: Warm, dry, normal turgor, no rashes or lesions noted CBCD WBC 7.0 K/mm3 (4.0-10.0) 05/02/19 06:55 RBC 4.27 M/mm3 (3.60-5.2) 05/02/19 06:55 Hgb 13.8 GM/dL (10.7-15.3) 05/02/19 06:55 Hct 40.9 % (32.4-45.2) D 05/02/19 06:55 MCV 95.7 fl (80-96) 05/02/19 06:55 MCHC 33.7 g/dl (32.0-36.0) 05/02/19 06:55 RDW 12.7 % (11.6-15.6) D 05/02/19 06:55 Plt Count 180 K/MM3 (134-434) D 05/02/19 06:55 MPV 9.1 fl (7.5-11.1) 05/02/19 06:55 CMP Sodium 142 mmol/L (136-145) 05/02/19 06:55 Potassium 3.5 mmol/L (3.5-5.1) 05/02/19 06:55 Chloride 107 mmol/L (98-107) 05/02/19 06:55 Carbon Dioxide 25 mmol/L (21-32) 05/02/19 06:55 Anion Gap 10 MMOL/L (8-16) 05/02/19 06:55 BUN 11.2 mg/dL (7-18) 05/02/19 06:55 Creatinine 0.8 mg/dL (0.55-1.3) 05/02/19 06:55 Random Glucose 118 mg/dL (74-106) H 05/02/19 06:55 Calcium 8.7 mg/dL (8.5-10.1) 05/02/19 06:55 Total Bilirubin 0.7 mg/dL (0.2-1) 05/02/19 06:55 AST 10 U/L (15-37) L 05/02/19 06:55 ALT 15 U/L (13-61) 05/02/19 06:55 Alkaline Phosphatase 72 U/L (45-117) 05/02/19 06:55 Total Protein 6.5 g/dl (6.4-8.2) 05/02/19 06:55 Albumin 3.6 g/dl (3.4-5.0) 05/02/19 06:55 Current Medications Generic Name Dose Route Start Last Admin Trade Name Freq PRN Reason Stop Dose Admin Buspirone HCl 10 mg 05/02/19 14:00 Buspar - PO TID ROLANDO Divalproex Sodium 500 mg 05/02/19 22:00 Depakote - PO BID ROLANDO Lactated Ringer's 1,000 mls @ 125 mls/hr 05/02/19 10:30 05/02/19 11:30 Lactated Ringers Solution IV 05/03/19 18:29 125 mls/hr ASDIR ROLANDO Administration Ketorolac Tromethamine 15 mg 05/02/19 10:27 05/02/19 13:27 Toradol Injection - IVPUSH 05/07/19 10:26 15 mg Q6H PRN Administration PAIN LEVEL 4 - 6 Morphine Sulfate 2 mg 05/02/19 10:27 Morphine Sulfate IVPUSH Q6H PRN PAIN LEVEL 7 - 10 Tamsulosin HCl 0.4 mg 05/03/19 08:30 Flomax - PO DAILY@0830 [facility] Trazodone HCl 50 mg 05/02/19 22:00 Desyrel - PO HS [facility] Home Medications Medication Instructions Recorded Divalproex [Depakote -] 500 mg PO BID 07/09/18 traZODone HCL [Trazodone HCl] 50 mg PO HS 07/09/18 Acetaminophen [Arthritis Pain 650 mg PO QID #20 tablet.er 12/26/18 Relief] Buspirone HCl [Buspar -] 10 mg PO TID 12/26/18 Fluticasone Prop 0.05% Nasal 1 - 2 spray NS DAILY #1 spray.pump 01/10/19 [Flonase -] Ibuprofen 600 mg PO Q6H #30 tablet 01/10/19 ASSESSMENT AND PLAN: 38 year old female with a history of renal stone presents for acute onset, 04/29 , left sided flank pain for 1 day , radiates to the left groin and is admitted for evaluation and management of L sided renal calculus. #Acute Nephrolithiasis:size of 0.5x0.3cm stone in the distal ureter 1.5cm up from UVJ , IV fluids with LR @ 125cc/hr -toradol for pain, morphine 2mg Q6h PRN pain (7-10 in severity), flomax 0.4mg daily, Dr. Rosenda Jones consulted #Depression/Anxiety: chronic, continue buspar, depakote, trazadone DVT Px : SCDs
[2019-05-02] MEDS: MORPHINE SULFATE 2 MG/ML VIAL IVPUSH PRN ×2 (16:10→22:29)
[2019-05-02 17:07] VITALS: BMI 21.4
[2019-05-02] MEDS: busPIRone HCL 5 MG TABLET PO SCH (21:05)
[2019-05-02] MEDS: traZODone HCL 50 MG TABLET (FP) PO SCH (21:05)
[2019-05-02] MEDS: DIVALPROEX SODIUM 500 MG TABLET E.C. PO SCH (21:05)
[2019-05-03] MEDS: KETOROLAC TROMETHAMINE 15 MG/ML VIAL IVPUSH PRN ×2 (05:40→12:20)
[2019-05-03] MEDS: busPIRone HCL 5 MG TABLET PO SCH ×2 (06:03→13:49)
[2019-05-03 08:43] LABS: HEMATOCRIT 35.2 % (32.4-45.2); HEMOGLOBIN 12.2 GM/dL (10.7-15.3); MCH 33.1 pg (25.7-33.7); MCHC 34.5 g/dl (32.0-36.0); MEAN CELL VOLUME 95.8 fl (80-96); PLATELET COUNT 139 K/MM3 (134-434); RBC 3.68 M/mm3 (3.60-5.2); RDW 12.4 % (11.6-15.6); WHITE BLOOD COUNT 4.7 K/mm3 (4.0-10.0)
[2019-05-03 09:00] LABS: CALCIUM 8.1 mg/dL (8.5-10.1); CREATININE 0.7 mg/dL (0.55-1.3); POTASSIUM 3.7 mmol/L (3.5-5.1)
[2019-05-03 09:13] LABS: INR 1.04 (0.83-1.09); PROTHROMBIN TIME (PATIENT) 12.3 SEC (9.7-13.0)
[2019-05-03] MEDS: DIVALPROEX SODIUM 500 MG TABLET E.C. PO SCH ×3 (09:29→21:48)
[2019-05-03] MEDS: TAMSULOSIN HCL 0.4 MG CAP PO SCH (09:29)
--- NOTE | 2019-05-03 10:01 | PN ---
Teaching Attending Note Name of Resident: Piotr Carballo ATTENDING PHYSICIAN STATEMENT I saw and evaluated the patient. I reviewed the resident's note and discussed the case with the resident. I agree with the resident's findings and plan as documented. SUBJECTIVE: Patient is comfortable with no acute distress. her daughters at bedside. OBJECTIVE: Vital Signs Temperature 989.2 F H 05/03/19 07:57 Pulse Rate 72 05/03/19 07:57 Respiratory Rate 20 05/03/19 07:57 Blood Pressure 100/62 05/03/19 07:57 O2 Sat by Pulse Oximetry (%) 100 05/02/19 21:00 GENERAL: The patient is awake, alert, and fully oriented, in no acute distress. HEAD: Normal with no signs of trauma. EYES: PERRL, extraocular movements intact, sclera anicteric, conjunctiva clear. ENT: Ears normal, oropharynx clear without exudates, moist mucous membranes. NECK: Trachea midline, full range of motion, supple. LUNGS: Breath sounds equal, clear to auscultation bilaterally, no wheezes, no crackles, no accessory muscle use. HEART: Regular rate and rhythm, S1, S2 without murmur, rub or gallop. ABDOMEN: Soft, NT,ND, normoactive bowel sounds, no guarding, no rebound, no hepatosplenomegaly, no masses.NO CVA tenderness EXTREMITIES: 2+ pulses, warm, well-perfused, no edema. NEUROLOGICAL: Cranial nerves II through XII grossly intact. Normal speech, gait is stable . PSYCH: Normal mood, normal affect. SKIN: Warm, dry, normal turgor, no rashes or lesions noted CBCD WBC 4.7 K/mm3 (4.0-10.0) 05/03/19 07:50 RBC 3.68 M/mm3 (3.60-5.2) 05/03/19 07:50 Hgb 12.2 GM/dL (10.7-15.3) 05/03/19 07:50 Hct 35.2 % (32.4-45.2) 05/03/19 07:50 MCV 95.8 fl (80-96) 05/03/19 07:50 MCHC 34.5 g/dl (32.0-36.0) 05/03/19 07:50 RDW 12.4 % (11.6-15.6) 05/03/19 07:50 Plt Count 139 K/MM3 (134-434) D 05/03/19 07:50 MPV 9.0 fl (7.5-11.1) 05/03/19 07:50 CMP Sodium 141 mmol/L (136-145) 05/03/19 07:50 Potassium 3.7 mmol/L (3.5-5.1) 05/03/19 07:50 Chloride 105 mmol/L (98-107) 05/03/19 07:50 Carbon Dioxide 30 mmol/L (21-32) 05/03/19 07:50 Anion Gap 6 MMOL/L (8-16) L 05/03/19 07:50 BUN 8.0 mg/dL (7-18) 05/03/19 07:50 Creatinine 0.7 mg/dL (0.55-1.3) 05/03/19 07:50 Random Glucose 72 mg/dL (74-106) L 05/03/19 07:50 Calcium 8.1 mg/dL (8.5-10.1) L 05/03/19 07:50 Total Bilirubin 0.7 mg/dL (0.2-1) 05/02/19 06:55 AST 10 U/L (15-37) L 05/02/19 06:55 ALT 15 U/L (13-61) 05/02/19 06:55 Alkaline Phosphatase 72 U/L (45-117) 05/02/19 06:55 Total Protein 6.5 g/dl (6.4-8.2) 05/02/19 06:55 Albumin 3.6 g/dl (3.4-5.0) 05/02/19 06:55 Current Medications Generic Name Dose Route Start Last Admin Trade Name Freq PRN Reason Stop Dose Admin Buspirone HCl 10 mg 05/02/19 16:27 05/03/19 06:03 Buspar - PO Not Given TID [facility] Divalproex Sodium 500 mg 05/02/19 22:00 05/03/19 09:29 Depakote - PO Not Given BID [facility] Lactated Ringer's 1,000 mls @ 125 mls/hr 05/02/19 10:30 05/02/19 11:30 Lactated Ringers Solution IV 05/03/19 18:29 125 mls/hr ASDIR ROLANDO Administration Ketorolac Tromethamine 15 mg 05/02/19 10:27 05/03/19 05:40 Toradol Injection - IVPUSH 05/07/19 10:26 15 mg Q6H PRN Administration PAIN LEVEL 4 - 6 Morphine Sulfate 2 mg 05/02/19 10:27 05/02/19 22:29 Morphine Sulfate IVPUSH 2 mg Q6H PRN Administration PAIN LEVEL 7 - 10 Tamsulosin HCl 0.4 mg 05/03/19 08:30 05/03/19 09:29 Flomax - PO Not Given DAILY@0830 [facility] Trazodone HCl 50 mg 05/02/19 22:00 05/02/19 21:05 Desyrel - PO 50 mg HS [facility] Administration Home Medications Medication Instructions Recorded Divalproex [Depakote -] 500 mg PO BID 07/09/18 traZODone HCL [Trazodone HCl] 50 mg PO HS 07/09/18 Acetaminophen [Arthritis Pain 650 mg PO QID #20 tablet.er 12/26/18 Relief] Buspirone HCl [Buspar -] 10 mg PO TID 12/26/18 Fluticasone Prop 0.05% Nasal 1 - 2 spray NS DAILY #1 spray.pump 01/10/19 [Flonase -] Ibuprofen 600 mg PO Q6H #30 tablet 01/10/19 ASSESSMENT AND PLAN: 38 year old female with a history of renal stone presents for acute onset, 04/29 , left sided flank pain for 1 day , radiates to the left groin and is admitted for evaluation and management of L sided renal calculus. #Acute Nephrolithiasis:size of 0.5x0.3cm stone in the distal ureter 1.5cm up from UVJ , IV fluids with LR @ 125cc/hr, -toradol for pain, morphine 2mg Q6h PRN pain (7-10 in severity), flomax 0.4mg daily, Dr. Rosenda Jones consulted possible lithotripsy in am by Dr. Jones #Depression/Anxiety: chronic, continue buspar, depakote, trazadone DVT Px : SCDs
--- NOTE | 2019-05-03 11:34 | PN ---
Physical Exam: SUBJECTIVE: Patient seen and examined. Pt. complains of R. sided flank tenderness that developed over night in addition to the L. sided tenderness. Pt. states that she had hand and lower extremity swelling that is now resolving overnight. Pt. states that she has had ESWL in the past by Dr. Jones, unclear or which side was affected. OBJECTIVE: Vital Signs Period Temp Pulse Resp BP Sys/Dozier Pulse Ox Last 24 Hr 98 F-989.2 F 72-90 18-98 100-110/62-70 100-100 GENERAL: The patient is awake, alert, and fully oriented, in no acute distress. HEAD: Normal with no signs of trauma. EYES: Extraocular movements intact, sclera anicteric, conjunctiva clear. No ptosis. ENT: Ears normal, nares patent, oropharynx clear without exudates, moist mucous membranes. LUNGS: Breath sounds equal, clear to auscultation bilaterally, no wheezes, no crackles, no accessory muscle use. HEART: Regular rate and rhythm, S1, S2 without murmur, rub or gallop. ABDOMEN: Soft, RLQ and suprapubic tenderness, nondistended, normoactive bowel sounds EXTREMITIES: 2+ dorsal pedal pulses, warm, well-perfused, no edema. NEUROLOGICAL: Cranial nerves II through XII grossly intact. Normal speech, gait not observed. PSYCH: Normal mood, normal affect. SKIN: Warm, dry, normal turgor, no rashes or lesions noted Laboratory Results - last 24 hr 05/03/19 05/03/19 05/03/19 07:50 07:50 07:50 WBC 4.7 RBC 3.68 Hgb 12.2 Hct 35.2 MCV 95.8 MCH 33.1 MCHC 34.5 RDW 12.4 Plt Count 139 D MPV 9.0 PT with INR 12.30 INR 1.04 Sodium 141 Potassium 3.7 Chloride 105 Carbon Dioxide 30 Anion Gap 6 L BUN 8.0 Creatinine 0.7 Est GFR (CKD-EPI)AfAm 127.39 Est GFR (CKD-EPI)NonAf 109.91 Random Glucose 72 L Calcium 8.1 L Active Medications Home Medications Medication Instructions Recorded Divalproex [Depakote -] 500 mg PO BID 07/09/18 traZODone HCL [Trazodone HCl] 50 mg PO HS 07/09/18 Acetaminophen [Arthritis Pain 650 mg PO QID #20 tablet.er 12/26/18 Relief] Buspirone HCl [Buspar -] 10 mg PO TID 12/26/18 Fluticasone Prop 0.05% Nasal 1 - 2 spray NS DAILY #1 spray.pump 01/10/19 [Flonase -] Ibuprofen 600 mg PO Q6H #30 tablet 01/10/19 Current Medications Buspirone HCl (Buspar -) 10 mg PO TID [facility] Last Admin: 05/03/19 06:03 Dose: Not Given Divalproex Sodium (Depakote -) 500 mg PO BID [facility] Last Admin: 05/03/19 09:29 Dose: Not Given Lactated Ringer's (Lactated Ringers Solution) 1,000 mls @ 125 mls/hr IV ASDIR [facility] Stop: 05/03/19 18:29 Last Admin: 05/02/19 11:30 Dose: 125 mls/hr Ketorolac Tromethamine (Toradol Injection -) 15 mg IVPUSH Q6H PRN PRN Reason: PAIN LEVEL 4 - 6 Stop: 05/07/19 10:26 Last Admin: 05/03/19 05:40 Dose: 15 mg Morphine Sulfate (Morphine Sulfate) 2 mg IVPUSH Q6H PRN PRN Reason: PAIN LEVEL 7 - 10 Last Admin: 05/02/19 22:29 Dose: 2 mg Tamsulosin HCl (Flomax -) 0.4 mg PO DAILY@0830 [facility] Last Admin: 05/03/19 09:29 Dose: Not Given Trazodone HCl (Desyrel -) 50 mg PO [facility] Last Admin: 05/02/19 21:05 Dose: 50 mg ASSESSMENT/PLAN: Pt. is a 38 y.o. F w/ PMHx. of nephrolithiasis presents for acute onset, 04/29, left sided flank pain for 1 day duration that radiates around to the left groin and admitted for evaluation and management of L. sided renal calculus #Nephrolithiasis CT A/P (05/02/19): showed 0.5x0.3cm stone in the distal ureter 1.5cm up from UVJ IVF c/w toradol Q6h PRN pain (1-6 in severity) c/w morphine 2mg Q6h PRN pain (7-10 in severity) c/w flomax 0.4mg daily Dr. Rosenda Jones consulted---> for laserlithotripsy in AM #Depression/Anxiety-chronic c/w buspar, depakote, trazadone #FEN LR @ 100cc/hr lytes wnl regular diet #DVT Ppx. SCDs Visit type - Emergency Visit Emergency Visit: Yes ED Registration Date: 05/02/19 Care time: The patient presented to the Emergency Department on the above date and was hospitalized for further evaluation of their emergent condition. - New Patient This patient is new to me today: Yes Date on this admission: 05/03/19 - Critical Care Critical Care patient: No - Discharge Referral Referred to [facility] Med P.C[facility] No ATTENDING PHYSICIAN STATEMENT I saw and evaluated the patient. I reviewed the resident's note and discussed the case with the resident. I agree with the resident's findings and plan as documented. SUBJECTIVE: OBJECTIVE: ASSESSMENT AND PLAN:
[2019-05-03] MEDS ORDERED: PT OWN MED DRAWER 7, Y5N ONE ×2 (13:39→21:05)
--- NOTE | 2019-05-03 13:39 | PN ---
Progress Note (short form) - Note Progress Note: urology note. pt. with lt. ureteral stone and lt. renal colick will need cysto lt. laserlithotripsy in am if no passage of stone.
[2019-05-03] MEDS ORDERED: ONDANSETRON 4 MG/2 ML VIAL IVPUSH ONE (21:33)
[2019-05-03] MEDS: LACTATED RINGERS SOLUTION 1,000 ML IV SCH (21:43)
[2019-05-03] MEDS: busPIRone HCL 10 MG TABLET (FP) PO SCH (21:47)
[2019-05-03] MEDS: traZODone HCL 50 MG TABLET (FP) PO SCH (21:48)
[2019-05-04] MEDS: busPIRone HCL 10 MG TABLET (FP) PO SCH ×3 (06:05→21:23)
[2019-05-04] MEDS: TAMSULOSIN HCL 0.4 MG CAP PO SCH (10:08)
[2019-05-04] MEDS: DIVALPROEX SODIUM 500 MG TABLET E.C. PO SCH ×2 (10:08→21:22)
[2019-05-04] MEDS: KETOROLAC TROMETHAMINE 15 MG/ML VIAL IVPUSH PRN ×2 (11:50→19:35)
[2019-05-04] MEDS ORDERED: DEXTROSE 5%-WATER 100 ML IVPB ONE (11:58)
[2019-05-04] MEDS: CEFTRIAXONE 2 GM in DEXTROSE 5%-WATER 100 ML IVPB SCH (12:05)
--- NOTE | 2019-05-04 12:51 | EKG ---
Test Reason : Blood Pressure : / mmHG Vent. Rate : 075 BPM Atrial Rate : 075 BPM P-R Int : 134 ms QRS Dur : 086 ms QT Int : 360 ms P-R-T Axes : 047 045 036 degrees QTc Int : 402 ms NORMAL SINUS RHYTHM NORMAL ECG WHEN COMPARED WITH ECG OF 31-MAR-2019 11:05, NO SIGNIFICANT CHANGE WAS FOUND Confirmed by Owen Flores MD ([id number]) on 05/04/2019 12:51:39 PM Referred By: Confirmed By:Owen Flores MD
[2019-05-04] MEDS ORDERED: SUCCINYLCHOLINE CHLORIDE 200 MG/10 ML SYRINGE ONE (12:52)
[2019-05-04] MEDS ORDERED: PROPOFOL 20 ML ONE ×2 (12:52)
[2019-05-04] MEDS ORDERED: MIDAZOLAM HCL 2 MG/2 ML SINGLE DOSE VIAL ONE (12:52)
[2019-05-04] MEDS ORDERED: DEXAMETHASONE SOD PHOSPHATE 4 MG/1 ML VIAL ONE (12:53)
[2019-05-04] MEDS ORDERED: KETOROLAC TROMETHAMINE 30 MG/1 ML VIAL ONE (12:53)
[2019-05-04] MEDS ORDERED: ONDANSETRON 4 MG/2 ML VIAL IVPUSH PRN (13:17)
--- NOTE | 2019-05-04 14:44 | OP ---
Operative Note - Note: Operative Date: 05/04/19 Pre-Operative Diagnosis: lt. colick, lt. hydro, lt. ureteral stone Operation: cysto, lt. retro, lt. ureteroscopy and stone retrieval and jj stenting Findings: lt. mid-ureteral stone Post-Operative Diagnosis: Same as Pre-op Surgeon: Jairon Jones Anesthesia: General Specimens Removed: urine, stone Estimated Blood Loss (mls): 0 Drains & Tubes with Location: 24cm-6f jj stent Drains, Volume Out (mls): 0 Blood Volume Replaced (mls): 0 Fluid Volume Replaced (mls): 0 Operative Report Dictated: Yes
--- NOTE | 2019-05-04 15:23 | OP ---
DATE OF OPERATION: 05/04/2019 PREOPERATIVE DIAGNOSES: Left ureteral stone, left renal colic, left hydronephrosis. POSTOPERATIVE DIAGNOSES: Left ureteral stone, left renal colic, left hydronephrosis. OPERATIVE PROCEDURE: Cystourethroscopy, left retrograde pyelogram, left ureteroscopy, left stone basketing, placement of a left JJ stent. ANESTHESIA: General. Under above-stated anesthesia, patient was prepped and draped in the usual sterile manner. She was placed in the dorsal lithotomy position. Cystoscopy revealed 100 mL of residual urine. This was sent for C&S. Inspection of the bladder revealed ureteral orifices to be within normal limits, efflux of clear urine was noted from the right, none was seen from the left. A Flexi-Tip catheter was placed in the left ureteral orifice, and 10 mL of contrast was injected. This revealed a filling defect in the upper portion of the lower third ureter. There was proximal hydroureteronephrosis. A Glidewire was passed up the left renal unit. A semirigid ureteroscopy was performed. A stone was found in the midportion of the lower ureter. This was able to be grasped with a basket and brought out atraumatically. A continuation of the ureteroscopy revealed a normal renal unit. Therefore, a 24-cm 6-Turkmen JJ stent was placed in the left renal unit. X-rays confirmed good position of the stent. The bladder was emptied. The scope was removed. The patient tolerated the procedure well. She returned to the recovery room in good condition. Ketty [id number]
--- NOTE | 2019-05-04 16:14 | PN ---
Physical Exam: SUBJECTIVE: Patient seen and examined at the bedside, no acute events overnight. Patient still complaining of L flank pain and now also states she has R flank pain, though no R sided stone was noted on the imaging. NPO since midnight, plan for L sided laserlithotripsy today. OBJECTIVE: Vital Signs Period Temp Pulse Resp BP Sys/Dozier Pulse Ox Last 24 Hr 97.6 F-98.7 F 50-88 14-20 98-114/62-95 98-100 GENERAL: The patient is awake, alert, and fully oriented, in no acute distress. HEAD: Normal with no signs of trauma. EYES: Extraocular movements intact, sclera anicteric, conjunctiva clear. No ptosis. ENT: Ears normal, nares patent, oropharynx clear without exudates, moist mucous membranes. LUNGS: Breath sounds equal, clear to auscultation bilaterally, no wheezes, no crackles, no accessory muscle use. HEART: Regular rate and rhythm, S1, S2 without murmur, rub or gallop. ABDOMEN: Soft, mild tenderness in the R and L flank, mild tenderness to palpation in lower abdomen diffusely, nondistended, normoactive bowel sounds EXTREMITIES: 2+ dorsal pedal pulses, warm, well-perfused, no edema. NEUROLOGICAL: Cranial nerves II through XII grossly intact. Normal speech, gait not observed. PSYCH: Normal mood, normal affect. SKIN: Warm, dry, normal turgor, no rashes or lesions noted Active Medications Generic Name Dose Route Start Last Admin Trade Name Freq PRN Reason Stop Dose Admin Buspirone HCl 10 mg 05/03/19 21:34 05/04/19 06:05 Buspar - PO Not Given TID ROLANDO Divalproex Sodium 500 mg 05/02/19 22:00 05/04/19 10:08 Depakote - PO Not Given BID [facility] Fentanyl 50 mcg 05/04/19 13:17 Sublimaze Injection - IVPUSH 05/05/19 13:16 [id number] PRN PAIN-PACU ORDER X 4 DOSES ONLY Ceftriaxone Sodium 2 gm/ 100 mls @ 200 mls/hr 05/04/19 11:45 05/04/19 12:05 Dextrose IVPB 05/05/19 23:59 200 mls/hr DAILY ROL[facility]O Administration Protocol Lactated Ringer's 1,000 mls @ 125 mls/hr 05/04/19 13:30 Lactated Ringers Solution IV ASDIR [facility] Ketorolac Tromethamine 15 mg 05/02/19 10:27 05/04/19 11:50 Toradol Injection - IVPUSH 05/07/19 10:26 15 mg Q6H PRN Administration PAIN LEVEL 4 - 6 Morphine Sulfate 2 mg 05/02/19 10:27 05/02/19 22:29 Morphine Sulfate IVPUSH 2 mg Q6H PRN Administration PAIN LEVEL 7 - 10 Ondansetron HCl 4 mg 05/04/19 13:17 Zofran Injection IVPUSH 05/05/19 13:16 Q6H PRN NAUSEA AND/OR VOMITING Tamsulosin HCl 0.4 mg 05/03/19 08:30 05/04/19 10:08 Flomax - PO Not Given DAILY@0830 [facility] Trazodone HCl 50 mg 05/02/19 22:00 05/03/19 21:48 Desyrel - PO 50 mg HS [facility]O Administration Renal u/s: no hydronephrosis or acute pathology Bladder u/s: no post void residual volume abd/ pelvis CT: mild-moderate L hydronaphrosis with L ureteral calculus 1.5cm from the uterovesical junction. ASSESSMENT/PLAN: Pt. is a 38 y.o. F w/ PMHx. of nephrolithiasis presents for acute onset, 04/29, left sided flank pain for 1 day duration that radiates around to the left groin and admitted for evaluation and management of L. sided renal calculus #Nephrolithiasis CT A/P (05/02/19): showed 0.5x0.3cm stone in the distal ureter 1.5cm up from UVJ IVF c/w toradol Q6h PRN pain (1-6 in severity) c/w morphine 2mg Q6h PRN pain (7-10 in severity) c/w flomax 0.4mg daily Dr. Rosenda Jones consulted---> NPO since midnight laserlithotripsy today, post-op instructions per Dr. Jones #Depression/Anxiety-chronic c/w buspar, depakote, trazadone #FEN LR @ 100cc/hr lytes wnl regular diet #DVT Ppx. SCDs Visit type - Emergency Visit Emergency Visit: Yes ED Registration Date: 05/02/19 Care time: The patient presented to the Emergency Department on the above date and was hospitalized for further evaluation of their emergent condition. - New Patient This patient is new to me today: No - Critical Care Critical Care patient: No - Discharge Referral Referred to [facility] No ATTENDING PHYSICIAN STATEMENT I saw and evaluated the patient. I reviewed the resident's note and discussed the case with the resident. I agree with the resident's findings and plan as documented. SUBJECTIVE: OBJECTIVE: ASSESSMENT AND PLAN:
[2019-05-04] MEDS: LACTATED RINGERS SOLUTION 1,000 ML IV SCH ×2 (19:40→22:50)
[2019-05-04] MEDS: traZODone HCL 50 MG TABLET (FP) PO SCH (21:22)
--- NOTE | 2019-05-04 22:01 | PN ---
Teaching Attending Note Name of Resident: Trinity Luevano ATTENDING PHYSICIAN STATEMENT I saw and evaluated the patient. I reviewed the resident's note and discussed the case with the resident. I agree with the resident's findings and plan as documented. SUBJECTIVE: Patient is feeling better. no fever or chills. OBJECTIVE: Vital Signs Temperature 97.3 F L 05/04/19 18:38 Pulse Rate 62 05/04/19 18:38 Respiratory Rate 20 05/04/19 18:38 Blood Pressure 150/57 L 05/04/19 18:38 O2 Sat by Pulse Oximetry (%) 99 05/04/19 16:15 GENERAL: The patient is awake, alert, and fully oriented, in no acute distress. HEAD: Normal with no signs of trauma. EYES: PERRL, extraocular movements intact, sclera anicteric, conjunctiva clear. ENT: Ears normal, oropharynx clear without exudates, moist mucous membranes. NECK: Trachea midline, full range of motion, supple. LUNGS: Breath sounds equal, clear to auscultation bilaterally, no wheezes, no crackles, no accessory muscle use. HEART: Regular rate and rhythm, S1, S2 without murmur, rub or gallop. ABDOMEN: Soft, NT,ND, normoactive bowel sounds, no guarding, no rebound, no hepatosplenomegaly, no masses. bl CVA tenderness EXTREMITIES: 2+ pulses, warm, well-perfused, no edema. NEUROLOGICAL: Cranial nerves II through XII grossly intact. Normal speech, gait is stable . PSYCH: Normal mood, normal affect. SKIN: Warm, dry, normal turgor, no rashes or lesions noted CBCD WBC 4.7 K/mm3 (4.0-10.0) 05/03/19 07:50 RBC 3.68 M/mm3 (3.60-5.2) 05/03/19 07:50 Hgb 12.2 GM/dL (10.7-15.3) 05/03/19 07:50 Hct 35.2 % (32.4-45.2) 05/03/19 07:50 MCV 95.8 fl (80-96) 05/03/19 07:50 MCHC 34.5 g/dl (32.0-36.0) 05/03/19 07:50 RDW 12.4 % (11.6-15.6) 05/03/19 07:50 Plt Count 139 K/MM3 (134-434) D 05/03/19 07:50 MPV 9.0 fl (7.5-11.1) 05/03/19 07:50 CMP Sodium 141 mmol/L (136-145) 05/03/19 07:50 Potassium 3.7 mmol/L (3.5-5.1) 05/03/19 07:50 Chloride 105 mmol/L (98-107) 05/03/19 07:50 Carbon Dioxide 30 mmol/L (21-32) 05/03/19 07:50 Anion Gap 6 MMOL/L (8-16) L 05/03/19 07:50 BUN 8.0 mg/dL (7-18) 05/03/19 07:50 Creatinine 0.7 mg/dL (0.55-1.3) 05/03/19 07:50 Random Glucose 72 mg/dL (74-106) L 05/03/19 07:50 Calcium 8.1 mg/dL (8.5-10.1) L 05/03/19 07:50 Total Bilirubin 0.7 mg/dL (0.2-1) 05/02/19 06:55 AST 10 U/L (15-37) L 05/02/19 06:55 ALT 15 U/L (13-61) 05/02/19 06:55 Alkaline Phosphatase 72 U/L (45-117) 05/02/19 06:55 Total Protein 6.5 g/dl (6.4-8.2) 05/02/19 06:55 Albumin 3.6 g/dl (3.4-5.0) 05/02/19 06:55 Current Medications Generic Name Dose Route Start Last Admin Trade Name Freq PRN Reason Stop Dose Admin Buspirone HCl 10 mg 05/03/19 21:34 05/04/19 21:23 Buspar - PO 10 mg TID ROLANDO Administration Divalproex Sodium 500 mg 05/02/19 22:00 05/04/19 21:22 Depakote - PO 500 mg BID ROLANDO Administration Fentanyl 50 mcg 05/04/19 13:17 Sublimaze Injection - IVPUSH 05/05/19 13:16 [id number] PRN PAIN-PACU ORDER X 4 DOSES ONLY Ceftriaxone Sodium 2 gm/ 100 mls @ 200 mls/hr 05/04/19 11:45 05/04/19 12:05 Dextrose IVPB 05/05/19 23:59 200 mls/hr DAILY [facility] Administration Protocol Lactated Ringer's 1,000 mls @ 125 mls/hr 05/04/19 13:30 05/04/19 19:40 Lactated Ringers Solution IV Not Given ASDIR [facility] Ketorolac Tromethamine 15 mg 05/02/19 10:27 05/04/19 19:35 Toradol Injection - IVPUSH 05/07/19 10:26 15 mg Q6H PRN Administration PAIN LEVEL 4 - 6 Morphine Sulfate 2 mg 05/02/19 10:27 05/02/19 22:29 Morphine Sulfate IVPUSH 2 mg Q6H PRN Administration PAIN LEVEL 7 - 10 Ondansetron HCl 4 mg 05/04/19 13:17 Zofran Injection IVPUSH 05/05/19 13:16 Q6H PRN NAUSEA AND/OR VOMITING Tamsulosin HCl 0.4 mg 05/03/19 08:30 05/04/19 10:08 Flomax - PO Not Given DAILY@0830 [facility] Trazodone HCl 50 mg 05/02/19 22:00 05/04/19 21:22 Desyrel - PO 50 mg HS [facility] Administration Home Medications Medication Instructions Recorded Divalproex [Depakote -] 500 mg PO BID 07/09/18 traZODone HCL [Trazodone HCl] 50 mg PO HS 07/09/18 Acetaminophen [Arthritis Pain 650 mg PO QID #20 tablet.er 12/26/18 Relief] Buspirone HCl [Buspar -] 10 mg PO TID 12/26/18 Fluticasone Prop 0.05% Nasal 1 - 2 spray NS DAILY #1 spray.pump 01/10/19 [Flonase -] Ibuprofen 600 mg PO Q6H #30 tablet 01/10/19 Levetiracetam 500 mg PO BID 05/04/19 cysto, lt. retro, lt. Findings: lt. mid-ureteral stone ASSESSMENT AND PLAN: 38 year old female with a history of renal stone presents for acute onset, 04/29 , left sided flank pain for 1 day , radiates to the left groin and is admitted for evaluation and management of L sided renal calculus. #POD #0 s/p ureteroscopy and stone retrieval and jj stenting due to Nephrolithiasis:size of 0.5x0.3cm stone in the distal ureter 1.5cm up from UVJ , IV fluids with LR @ 125cc/hr, toradol for pain, morphine 2mg Q6h PRN pain (7- 10 in severity), flomax 0.4mg daily. ON Rocephin 2gm iv continue one more dose if no further issues , discuss with urology and dc the patient. #Depression/Anxiety: chronic, continue buspar, depakote, trazadone DVT Px : SCDs
[2019-05-04] MEDS: MORPHINE SULFATE 2 MG/ML VIAL IVPUSH PRN (22:50)
[2019-05-05] MEDS: KETOROLAC TROMETHAMINE 15 MG/ML VIAL IVPUSH PRN ×2 (01:42→06:42)
[2019-05-05] MEDS: busPIRone HCL 10 MG TABLET (FP) PO SCH ×3 (06:10→22:39)
[2019-05-05] MEDS ORDERED: PT OWN MED DRAWER 7, Y5N ONE ×3 (06:29→21:37)
[2019-05-05 06:52] LABS: BASO % 0.1 % (0-2.0); HEMATOCRIT 35.7 % (32.4-45.2); HEMOGLOBIN 12.5 GM/dL (10.7-15.3); LYMPH % 16.2 % (8-40); MCH 32.9 pg (25.7-33.7); MEAN PLT VOLUME 8.9 fl (7.5-11.1); MONO % 6.4 % (3.8-10.2); NEUT % 77.3 % (42.8-82.8); PLATELET COUNT 157 K/MM3 (134-434); RDW 12.5 % (11.6-15.6)
[2019-05-05 07:19] LABS: ALBUMIN 2.7 g/dl (3.4-5.0); BILIRUBIN,TOTAL 0.9 mg/dL (0.2-1); BLOOD UREA NITROGEN 11.8 mg/dL (7-18); CALCIUM 8.3 mg/dL (8.5-10.1); CREATININE 0.9 mg/dL (0.55-1.3); MAGNESIUM 1.5 mg/dL (1.8-2.4); PHOSPHOROUS 3.8 mg/dL (2.5-4.9); POTASSIUM 4.1 mmol/L (3.5-5.1); TOT PROT 5.2 g/dl (6.4-8.2)
[2019-05-05] MEDS: LACTATED RINGERS SOLUTION 1,000 ML IV SCH ×2 (10:00→20:13)
[2019-05-05] MEDS: DIVALPROEX SODIUM 500 MG TABLET E.C. PO SCH ×2 (10:05→22:36)
[2019-05-05] MEDS ORDERED: oxyCODONE HCL 5 MG TABLET PO PRN (10:06)
[2019-05-05] MEDS: TAMSULOSIN HCL 0.4 MG CAP PO SCH (10:06)
[2019-05-05] MEDS: CEFTRIAXONE 2 GM in DEXTROSE 5%-WATER 100 ML IVPB SCH (10:06)
[2019-05-05] MEDS ORDERED: PYRIDOXINE HCL (B-6) 100 MG TABLET PO SCH (10:45)
[2019-05-05] MEDS: PANTOPRAZOLE 20 MG TABLET (FP) PO SCH (13:04)
[2019-05-05] MEDS: oxyCODONE HCL 5 MG TABLET PO PRN (13:04)
[2019-05-05] MEDS: PHENAZOPYRIDINE HCL 100 MG TABLET (FP) PO SCH ×2 (13:05→22:35)
--- NOTE | 2019-05-05 14:23 | PN ---
Teaching Attending Note Name of Resident: Piotr Carballo ATTENDING PHYSICIAN STATEMENT I saw and evaluated the patient. I reviewed the resident's note and discussed the case with the resident. I agree with the resident's findings and plan as documented. SUBJECTIVE: abd pain, generalized. no N/V. tolerated food. No CP or SOB . mild hematuria . felt dizzy going to the bathroom. felt dizzy and sweaty with pain while in bed . No dizziness at time of eval . reports h/o gastritis. OBJECTIVE: NAD , Cv: RRR Lungs: CTAB Abd: soft , TTP in all quadrants , no rebound tenderness or guarding. Nl BS . bladder percussed half way between pubic bone and umbilicus Ext : no edema or erythema on legs ASSESSMENT AND PLAN: 38 y/o lady with h/o gastritis , and nephrolithiasis who presented with abd pain and was found to have acute L hydronephrosis and hydroureter due to an obstructing ureteral stone. 1- Acute L hydronephrosis and hydroureter due to an obstructing ureteral stone. s/p retrograde cystoscopy and uretroscopy with stone retrieval and stent placement - persistent adb pain - check KUB, r/o ileus - check post void bladder scan - check US of kidneys - urine cx neg . x 2 before and after the procedure. will dc Abx - dc toradol and morphone - start oxy - start PPI - will reassess in afternoon to decide on timing of dc
[2019-05-05] MEDS: DOCUSATE SODIUM 100 MG CAPSULE (FP) PO SCH ×2 (15:33→22:39)
--- NOTE | 2019-05-05 18:48 | PN ---
Progress Note (short form) - Note Progress Note: UROLOGY NOTE: 38 y/o F w/ left ureteral stone, lt hydronephrosis and left renal colic. s/p cystoscopy w/ left retrograde pyelogram, left ureter stone retrieval and left jj stent placement. POD#1- afebrile ,VSS, renal sono normal upper tarcts no hydro no stones. stent in proper position. PLAN: Urologically clear for discharge. please see d/c plan for further instructions. Antibiotics per primary team. Motrin for analgesia.
[2019-05-05] MEDS ORDERED: PROCHLORPERAZINE INJECTION 10 MG/2 ML VIAL IVPB ONE (19:03)
[2019-05-05] MEDS ORDERED: SENNOSIDES 8.6MG TABLET (FP) PO SCH (22:00)
[2019-05-05] MEDS: traZODone HCL 50 MG TABLET (FP) PO SCH (22:36)
--- NOTE | 2019-05-05 23:41 | PN ---
Physical Exam: SUBJECTIVE: Patient seen and examined OBJECTIVE: Vital Signs Period Temp Pulse Resp BP Sys/Dozier Pulse Ox Last 24 Hr 97.7 F-98.2 F 71-87 18-20 81-120/53-76 99 GENERAL: The patient is awake, alert, and fully oriented, in no acute distress. HEAD: Normal with no signs of trauma. EYES: Extraocular movements intact, sclera anicteric, conjunctiva clear. No ptosis. ENT: Ears normal, nares patent, oropharynx clear without exudates, moist mucous membranes. LUNGS: Breath sounds equal, clear to auscultation bilaterally, no wheezes, no crackles, no accessory muscle use. HEART: Regular rate and rhythm, S1, S2 without murmur, rub or gallop. ABDOMEN: Soft, mild tenderness in the R and L flank, moderate tenderness to palpation diffusely over abdomen, mildly distended, normoactive bowel sounds EXTREMITIES: 2+ dorsal pedal pulses, warm, well-perfused, no edema. NEUROLOGICAL: Cranial nerves II through XII grossly intact. Normal speech, gait not observed. PSYCH: Normal mood, normal affect. SKIN: Warm, dry, normal turgor, no rashes or lesions noted Laboratory Results - last 24 hr 05/05/19 05/05/19 05/05/19 06:07 06:07 10:48 WBC 9.0 RBC 3.80 Hgb 12.5 Hct 35.7 MCV 94.0 MCH 32.9 MCHC 35.0 RDW 12.5 Plt Count 157 MPV 8.9 Absolute Neuts (auto) 7.0 Neutrophils % 77.3 D Lymphocytes % 16.2 D Monocytes % 6.4 Eosinophils % 0.0 Basophils % 0.1 Nucleated RBC % 0 Sodium 140 Potassium 4.1 Chloride 105 Carbon Dioxide 29 Anion Gap 6 L BUN 11.8 Creatinine 0.9 Est GFR (CKD-EPI)AfAm 94.01 Est GFR (CKD-EPI)NonAf 81.11 Random Glucose 78 Lactic Acid 1.4 Calcium 8.3 L Phosphorus 3.8 Magnesium 1.5 L Total Bilirubin 0.9 AST 8 L ALT 11 L Alkaline Phosphatase 55 Total Protein 5.2 L Albumin 2.7 L Active Medications Generic Name Dose Route Start Last Admin Trade Name Freq PRN Reason Stop Dose Admin Buspirone HCl 10 mg 05/03/19 21:34 05/05/19 22:39 Buspar - PO Not Given TID ROLANDO Divalproex Sodium 500 mg 05/02/19 22:00 05/05/19 22:36 Depakote - PO 500 mg BID ROL[facility]O Administration Docusate Sodium 200 mg 05/05/19 14:00 05/05/19 22:39 Colace - PO Not Given BID ROLANDO Ceftriaxone Sodium 2 gm/ 100 mls @ 200 mls/hr 05/04/19 11:45 05/05/19 10:06 Dextrose IVPB 05/05/19 23:59 200 mls/hr DAILY [facility] Administration Protocol Lactated Ringer's 1,000 mls @ 125 mls/hr 05/04/19 13:30 05/05/19 20:13 Lactated Ringers Solution IV 125 mls/hr ASDIR [facility]OL[facility]O Administration Oxycodone HCl 5 mg 05/05/19 10:06 05/05/19 13:04 Roxicodone - PO 5 mg Q6H PRN Administration PAIN LEVEL 4 - 6 Oxycodone HCl 10 mg 05/05/19 10:06 Roxicodone - PO Q6H PRN PAIN LEVEL 7 - 10 Pantoprazole Sodium 20 mg 05/05/19 10:30 05/05/19 13:04 Protonix - PO 20 mg DAILY ROLANDO Administration Phenazopyridine HCl 100 mg 05/05/19 11:15 05/05/19 22:35 Pyridium - PO 100 mg BID ROLANDO Administration Senna 2 tab 05/05/19 22:00 05/05/19 22:39 Senna - PO Not Given HS [facility] Tamsulosin HCl 0.4 mg 05/03/19 08:30 05/05/19 10:06 Flomax - PO 0.4 mg DAILY@0830 R[facility] Administration Trazodone HCl 50 mg 05/02/19 22:00 05/05/19 22:36 Desyrel - PO 50 mg HS ROLANDO Administration CT A/P (05/02/19): showed 0.5x0.3cm stone in the distal ureter 1.5cm up from UVJ Renal u/s: no hydronephrosis or acute pathology Bladder u/s: no post void residual volume abd/ pelvis CT: mild-moderate L hydronaphrosis with L ureteral calculus 1.5cm from the uterovesical junction. ASSESSMENT/PLAN: Pt. is a 38 y.o. F w/ PMHx. of nephrolithiasis presents for acute onset, 04/29, left sided flank pain for 1 day duration that radiates around to the left groin and admitted for evaluation and management of L. sided renal calculus #Nephrolithiasis- s/p retrograde cystoscopy and uretroscopy with stone retrieval and stent placement - advance diet as tolerated - persistent adb pain will check KUB to rule out ileus - f/u US of kidneys and bladder - urine cx neg x 2 before and after the procedure. will dc Abx - dc toradol and morphone as patient has persistent abdominal pain and history of stomach ulcers. Toradol may irritate ulcers and morphine can worsen ileus. - start oxy - start PPI - continue flomax 0.4mg daily #Depression/Anxiety-chronic c/w buspar, depakote, trazadone #FEN PO fluids lytes wnl regular diet #DVT Ppx. SCDs ATTENDING PHYSICIAN STATEMENT I saw and evaluated the patient. I reviewed the resident's note and discussed the case with the resident. I agree with the resident's findings and plan as documented. SUBJECTIVE: OBJECTIVE: ASSESSMENT AND PLAN:
[2019-05-06] MEDS: LACTATED RINGERS SOLUTION 1,000 ML IV SCH (05:57)
[2019-05-06] MEDS: busPIRone HCL 10 MG TABLET (FP) PO SCH (05:58)
[2019-05-06] MEDS: oxyCODONE HCL 5 MG TABLET PO PRN (05:59)
[2019-05-06 06:31] VITALS: TEMP 98.4
[2019-05-06] MEDS ORDERED: PT OWN MED DRAWER 7, Y5N ONE (09:24)
[2019-05-06 09:26] LABS: HEMATOCRIT 33.9 % (32.4-45.2); MCH 33.1 pg (25.7-33.7); MCHC 35.3 g/dl (32.0-36.0); MEAN CELL VOLUME 93.7 fl (80-96); PLATELET COUNT 135 K/MM3 (134-434); RBC 3.62 M/mm3 (3.60-5.2); RDW 12.6 % (11.6-15.6); WHITE BLOOD COUNT 5.4 K/mm3 (4.0-10.0)
[2019-05-06] MEDS: DOCUSATE SODIUM 100 MG CAPSULE (FP) PO SCH (09:29)
[2019-05-06] MEDS: TAMSULOSIN HCL 0.4 MG CAP PO SCH (09:29)
[2019-05-06] MEDS: PANTOPRAZOLE 20 MG TABLET (FP) PO SCH (09:30)
[2019-05-06] MEDS: DIVALPROEX SODIUM 500 MG TABLET E.C. PO SCH (09:30)
[2019-05-06] MEDS: PHENAZOPYRIDINE HCL 100 MG TABLET (FP) PO SCH (09:30)
[2019-05-06 10:15] LABS: BLOOD UREA NITROGEN 8.2 mg/dL (7-18); CALCIUM 8.3 mg/dL (8.5-10.1); CREATININE 0.7 mg/dL (0.55-1.3); POTASSIUM 3.6 mmol/L (3.5-5.1)
[2019-05-06 11:10] VITALS: BP 169/75; PULSE 78
--- NOTE | 2019-05-06 15:24 | DS ---
Physical Exam: SUBJECTIVE: Patient seen and examined at the bedside, there were no acute events. Patient reports pain is improved would like to go home. OBJECTIVE: Vital Signs Period Temp Pulse Resp BP Sys/Dozier Pulse Ox Last 24 Hr 98.1 F-98.8 F 78-99 18-20 94-169/60-75 100-100 PHYSICAL EXAM GENERAL: The patient is awake, alert, and fully oriented, in no acute distress. HEAD: Normal with no signs of trauma. EYES: Extraocular movements intact, sclera anicteric, conjunctiva clear. No ptosis. ENT: Ears normal, nares patent, oropharynx clear without exudates, moist mucous membranes. LUNGS: Breath sounds equal, clear to auscultation bilaterally, no wheezes, no crackles, no accessory muscle use. HEART: Regular rate and rhythm, S1, S2 without murmur, rub or gallop. ABDOMEN: Soft, mild tenderness in the R and L flank, moderate tenderness to palpation diffusely over abdomen, mildly distended, normoactive bowel sounds EXTREMITIES: 2+ dorsal pedal pulses, warm, well-perfused, no edema. NEUROLOGICAL: Cranial nerves II through XII grossly intact. Normal speech, gait not observed. PSYCH: Normal mood, normal affect. SKIN: Warm, dry, normal turgor, no rashes or lesions noted LABS Laboratory Results - last 24 hr 05/06/19 05/06/19 08:23 08:23 WBC 5.4 RBC 3.62 Hgb 12.0 Hct 33.9 MCV 93.7 MCH 33.1 MCHC 35.3 RDW 12.6 Plt Count 135 MPV 9.0 Sodium 139 Potassium 3.6 Chloride 104 Carbon Dioxide 27 Anion Gap 9 BUN 8.2 Creatinine 0.7 Est GFR (CKD-EPI)AfAm 127.39 Est GFR (CKD-EPI)NonAf 109.91 Random Glucose 84 Calcium 8.3 L Imaging: CT A/P (05/02/19): showed 0.5x0.3cm stone in the distal ureter 1.5cm up from UVJ Renal u/s: no hydronephrosis or acute pathology Bladder u/s: no post void residual volume abd/ pelvis CT: mild-moderate L hydronaphrosis with L ureteral calculus 1.5cm from the uterovesical junction. HOSPITAL COURSE: Date of Admission:05/02/19 Pt. is a 38 y.o. F w/ PMHx. of nephrolithiasis who presented for acute onset, , left sided flank pain for 1 day duration that radiates around to the left groin and admitted for evaluation and management of L. sided renal calculus. On CT she was found to have a 0.5x0.3cm stone in the distal ureter 1.5cm up from UVJ. She underwent an uncomplicated retrograde cystoscopy and uretroscopy with stone retrieval and stent placement with Dr. Jones. Her recovery was uneventful with the exception of some post operative abdominal pain due to increased stool burden. The patient was given stool softeners and discharged home with tylenol for pain (NOT ibuprofen because she has a hx of stomach ulcers ). She was instructed to follow up with and her PCP within the week and increase her fluid intake to decrease risk of stones in the future. Date of Discharge: 05/06/19 Minutes to complete discharge: 40 Discharge Summary Problems reviewed: Yes Reason For Visit: CALCULUS OF KIDNEY Condition: Improved - Instructions Diet, Activity, Other Instructions: You were in the hospital for treatment of a stone in your ureter. Dr. Jones, the urologist evaluated you and removed the stone and placed a stent. Your symptoms improved and you were cleared for discharge home. Please see Dr. Jones 's instructions below. Please continue to take all of your home medications as prescribed You may take Tylenol for pain 650mg every 6 hours as needed for pain up to 2, 600mg per day. You also had some abdominal pain while in the hospital, imaging revealed that you had a back up of stool in your intestines. This may be due to the pain medications you were on. Walking helps to keep the GI tract moving, in addition to staying well hydrated. You may also buy Colace over the counter which is a stool softener to help make your bowel movements easier. Please increase your fluid intake to help reduce risk of forming another kidney stone. Please follow up with the following doctors within 1 week of discharge from the hospital. - Dr. Jones, the urologist, on at 1pm - Dr. Lawson, your primary care doctor within 1 week of discharge from the hospital. If you experience worsening abdominal pain, flank pain or worsening blood in the urine please return to the Emergency Department immediately. Per Dr Lyle Jones-Urology You underwent treatment for a stone in your ureter. Stone was removed and a stent was placed. Please increase your fluid intake, decrease your salt and protein take. Strain your urine. Please follow up in office 1 pm for Ultrasound of your kidney and possible removal of your stent. Referrals: Latosha Darling MD [Primary Care Provider] - 1 Week Jairon Jones MD [Staff Physician] - 1 Week (Pleae follow up in office this . ) Disposition: HOME - Home Medications Comprehensive Discharge Medication List: Ambulatory Orders Divalproex [Depakote -] 500 mg PO BID 07/09/18 traZODone HCL [Trazodone HCl] 50 mg PO HS 07/09/18 Acetaminophen [Arthritis Pain Relief] 650 mg PO QID #20 tablet.er 12/26/18 Buspirone HCl [Buspar -] 10 mg PO TID 12/26/18 Fluticasone Prop 0.05% Nasal [Flonase -] 1 - 2 spray NS DAILY #1 spray.pump Levetiracetam 500 mg PO BID 05/04/19 This patient is new to me today: Yes Date on this admission: 05/06/19 Emergency Visit: No Critical Care patient: No - Discharge Referral Referred to [facility] Med [facility] No ATTENDING PHYSICIAN STATEMENT I saw and evaluated the patient. I reviewed the resident's note and discussed the case with the resident. I agree with the resident's findings and plan as documented. SUBJECTIVE: OBJECTIVE: ASSESSMENT AND PLAN:
--- NOTE | 2019-05-06 17:46 | PATH ---
Surgical Pathology Report Patient Name: GARRICK GONCALVES Med. Rec. #: [id number] /Age/Gender: 1980 (Age: 38) / F Account: [id number] Location: [facility] MED/SURG Taken: 05/04/2019 Received: 05/05/2019 Reported: 05/06/2019 Physicians: Oscar Jones Specimen(s) Received CALCULUS LEFT URETES Clinical History Calculus of left ureter Final Diagnosis CALCULUS FROM LEFT URETER, REMOVAL: CONSISTENT WITH URETERAL CALCULUS. SENT FOR CHEMICAL ANALYSIS. Electronically Signed Katty Tompkins M.D. Gross Description Received fresh labeled "calculus from left ureter" is a 0.8 x 0.5 x 0.3 cm segundo, irregular calculus which is sent for chemical analysis. /05/05/2019 saudi/05/05/2019
== END 2019-05-06 11:10 | disposition home or self-care (01) | DRG 446 ==
LOC: JER 06:19 → JERBED 10:15 → J8W 11:58
PROVIDERS: ADMIT Internal Medicine; ATTEND Internal Medicine
PROC: 0T778DZ Dilation of Left Ureter with Intraluminal Device, Via Natural or Artificial Opening Endoscopic (ICD-10-PCS; principal; 2019-05-04 13:30)
PROC: 0TC78ZZ Extirpation of Matter from Left Ureter, Via Natural or Artificial Opening Endoscopic (ICD-10-PCS; 2019-05-04 13:30)
PROC: BT1BZZZ Fluoroscopy of Bladder and Urethra (ICD-10-PCS; 2019-05-04 13:30)
DX: N13.2 Hydronephrosis with renal and ureteral calculous obstruction (principal); F41.8 Other specified anxiety disorders
CPT/HCPCS: 36415; 74019-TC-FY; 74176-TC; 76775-TC; 76856-TC; 80048; 80053; 81003; 82360; 83605; 83735; 84100; 84703; 85025; 85027; 85610; 87086; 93005; 93010; 94760; 99282-25; J7030

== ENCOUNTER 2019-05-10 07:17 | Emergency (ER) | payer OTHER ==
[2019-05-10 07:28] VITALS: BMI 21.4
[2019-05-10] MEDS ORDERED: IBUPROFEN 400 MG TABLET (FP) PO ONE (07:45)
--- NOTE | 2019-05-10 07:49 | PDOC ---
History of Present Illness - General Chief Complaint: Pain, Acute Stated Complaint: POST OP PAIN-Lt. Flank pain Time Seen by Provider: 05/10/19 07:37 - History of Present Illness Initial Comments: Ms. Kelly is a 38 y/o female with hx of GERD, seizures, presenting 6 days s/p left cystoscopy, uretroscopy, stone removal, and stent replacement. She reports that she had mild abdominal discomfort POD 1-2, but attributed it to gas. Reports worsening abdominal pain since Friday. Describes the pain as worse in the LLQ, and radiating to the RLQ, LUQ, and left flank. She reports associated fever, diaphoresis, and chills. Reports nausea w/o vomiting. Reports hematuria and clots in the urine. Denies dysuria. Denies blood from the vagina or rectum. Denies chest pain or shortness of breath. Has tried Tylenol 650 with moderate pain relief. PMH: kidney stones, GERD, seizures SurgHx: , cyst removal, cystoscopy Meds: omeprazole, keppra, trazadone, depakote Allergies: none Past History - Past Medical History Allergies/Adverse Reactions: Allergies Allergy/AdvReac Type Severity Reaction Status Date / Time No Known Allergies Allergy Verified 03/31/19 10:18 Home Medications: Ambulatory Orders Divalproex [Depakote -] 500 mg PO BID 07/09/18 traZODone HCL [Trazodone HCl] 50 mg PO HS 07/09/18 Acetaminophen [Arthritis Pain Relief] 650 mg PO QID #20 tablet.er 12/26/18 Buspirone HCl [Buspar -] 10 mg PO TID 12/26/18 Fluticasone Prop 0.05% Nasal [Flonase -] 1 - 2 spray NS DAILY #1 spray.pump Levetiracetam 500 mg PO BID 05/04/19 Acetaminophen [Tylenol -] 1,000 mg PO Q6H PRN 5 Days #20 tablet 05/10/19 Ciprofloxacin HCl [Cipro] 500 mg PO BID 7 Days #14 tablet 05/10/19 Anemia: Yes Asthma: No Cancer: No Cardiac Disorders: No CVA: No COPD: No CHF: No Dementia: No Diabetes: No GI Disorders: Yes (ulcers) Disorders: No HTN: No Hypercholesterolemia: No Liver Disease: No Seizures: No Thyroid Disease: No - Surgical History Abdominal Surgery: No Appendectomy: No Cardiac Surgery: No Cholecystectomy: No Lung Surgery: No Neurologic Surgery: No Orthopedic Surgery: No - Psycho Social/Smoking Cessation Hx Smoking Status: No Smoking History: Never smoked Have you smoked in the past 12 months: No Number of Cigarettes Smoked Daily: 0 Information on smoking cessation initiated: No Hx Alcohol Use: No Drug/Substance Use Hx: No Substance Use Type: None Hx Substance Use Treatment: No Review of Systems - Review of Systems Comments:: GENERAL/CONSTITUTIONAL: Reports fever or chills. No weakness._ HEAD, EYES, EARS, NOSE AND THROAT: No change in vision. No change in hearing. No sore throat._ CARDIOVASCULAR: No chest pain or shortness of breath_ RESPIRATORY: Denies cough, hemoptysis_ GASTROINTESTINAL: Reports nausea. Denies vomiting, diarrhea or constipation. Reports diffuse abdominal pain worse in the LLQ. GENITOURINARY: Reports hematuria and blood clots in the urine. Denies dysuria. MUSCULOSKELETAL: No joint or muscle swelling or pain. No neck pain. Reports left flank pain. SKIN: No rash. NEUROLOGIC: No headache, vertigo, loss of consciousness, or change in strength/ sensation._ ENDOCRINE: No increased thirst. No abnormal weight change_ HEMATOLOGIC/LYMPHATIC: No anemia, easy bleeding, or history of blood clots._ ALLERGIC/IMMUNOLOGIC: No hives or skin allergy. *Physical Exam - Vital Signs Last Vital Signs Temp Pulse Resp BP Pulse Ox 98.0 F 97 H 16 107/67 99 05/10/19 07:23 05/10/19 07:23 05/10/19 07:23 05/10/19 07:23 05/10/19 07:23 - Physical Exam Comments: GENERAL: Awake, alert, and oriented to person/place/time, in no acute distress_ HEAD: No signs of trauma, normocephalic, atraumatic _ EYES: PERRLA, EOMI, sclera anicteric, conjunctiva clear_ ENT: Hearing grossly normal, nares patent, oropharynx clear without exudates. No uvular deviation. Moist mucosa_ NECK: Normal ROM, supple, no lymphadenopathy, JVD, or masses_ LUNGS: No distress, speaks in full sentences, clear to auscultation bilaterally _ HEART: Regular rate and rhythm, normal S1 and S2, no murmurs appreciated, peripheral pulses normal and equal bilaterally._ ABDOMEN: Soft, diffuse tenderness worse in the LLQ and RLQ. No guarding, no rebound. No masses. BACK: TTP left flank. EXTREMITIES: Normal inspection, Normal range of motion, no edema. No clubbing or cyanosis. NEUROLOGICAL: Cranial nerves II through XII grossly intact. Normal speech, normal gait, no focal sensorimotor deficits _ SKIN: Warm, diaphoretic, normal turgor, no rashes or lesions noted_ ED Treatment Course - LABORATORY CBC & Chemistry Diagram: 05/10/19 08:20 05/10/19 08:20 Medical Decision Making - Medical Decision Making 05/10/19 08:10 38F with hx of seizures, kidney stones, GERD, 6 days s/p left cystoscopy/ uretroscopy/stone removal/stent placement, presenting with 4 days of worsening abdominal pain, fever, chills, hematuria, blood clots in the urine. DDx includes post-op bleeding vs UTI vs pyelo vs SBO. Obtain CBC, CMP, UA/UC, Upreg, CT abd/pelv w/ contrast, EKG, lipase. 05/10/19 0900 EKG shows NSR, 82 bpm, no axis deviation, no ST elevation/depression, QTc 425. 05/10/19 12:[address] abd shows stent in place, collecting system decompressed. Spoke with Dr. Faye, who is covering for Dr. Jones. States that the patient can be started on abx for UTI d/c with follow up to the office next week. Plan to d/c home, cipro 500 mg BID 7 days, Tylenol for pain relief, f/u urology on (patient already has appt). Discharge - Discharge Information Problems reviewed: Yes Clinical Impression/Diagnosis: UTI (urinary tract infection) Qualifiers: Urinary tract infection type: site unspecified Hematuria presence: with hematuria Qualified Code(s): N39.0 - Urinary tract infection, site not specified ; R31.9 - Hematuria, unspecified Condition: Stable Disposition: HOME - Admission No - Additional Discharge Information Prescriptions: Acetaminophen [Tylenol -] 1,000 mg PO Q6H PRN 5 Days #20 tablet PRN Reason: Pain Ciprofloxacin HCl [Cipro] 500 mg PO BID 7 Days #14 tablet - Follow up/Referral Referrals: Latosha Darling MD [Primary Care Provider] - - Patient Discharge Instructions Patient Printed Discharge Instructions: DI for Urinary Tract Infection (UTI) Additional Instructions: Please keep your appointment with your urologist Dr. Jones on . Please take Ciprofloxacin (antibiotic) 500 mg two times per day for 7 days, unless instructed otherwise by your urologist. You may take Tylenol for pain relief. If you experience any new, worsening, or concerning symptoms, including severe fever, severe chills, nausea/vomiting/inability to keep down food, water, or medicine, any new abdominal pain or pain with urination, please return to the emergency room. - Post Discharge Activity
[2019-05-10] MEDS ORDERED: ACETAMINOPHEN 1000 MG/100 ML VIAL (NON FORMULARY) IVPB ONE (08:02)
[2019-05-10] MEDS ORDERED: SODIUM CHLORIDE 0.9% 500 ML INFUS.BAG IV ONE (08:02)
[2019-05-10] MEDS ORDERED: ACETAMINOPHEN INJECTION 100 ML IVPB ONE (08:28)
[2019-05-10 08:53] LABS: BASO % 0.1 % (0-2.0); HEMATOCRIT 38.4 % (32.4-45.2); HEMOGLOBIN 13.5 GM/dL (10.7-15.3); LYMPH % 16.1 % (8-40); MCH 32.8 pg (25.7-33.7); MEAN CELL VOLUME 93.7 fl (80-96); MEAN PLT VOLUME 8.3 fl (7.5-11.1); MONO % 7.2 % (3.8-10.2); NEUT % 76.6 % (42.8-82.8); PLATELET COUNT 195 K/MM3 (134-434); RDW 12.6 % (11.6-15.6); WHITE BLOOD COUNT 7.1 K/mm3 (4.0-10.0)
[2019-05-10 09:00] LABS: EPI CELLS 4.1 /HPF (0-5/HPF); HYALINE CASTS 5 /lpf (0-8); URINE APPEARANCE CLOUDY; URINE BACTERIA 36.8 /hpf (NEGATIVE); URINE BILIRUBIN NEGATIVE (NEGATIVE); URINE COLOR ORANGE; URINE GLUCOSE (UA) NEGATIVE (NEGATIVE); URINE KETONE NEGATIVE (NEGATIVE); URINE LEUK ESTERASE 1+ (NEGATIVE); URINE NITRITE NEGATIVE (NEGATIVE); URINE PROTEIN 1+ (NEGATIVE); URINE RBC 392 /hpf (0-4); URINE WBC 12 /hpf (0-5)
[2019-05-10 09:13] LABS: ALBUMIN 3.5 g/dl (3.4-5.0); BILIRUBIN,TOTAL 0.4 mg/dL (0.2-1); CALCIUM 8.8 mg/dL (8.5-10.1); CREATININE 0.8 mg/dL (0.55-1.3); POTASSIUM 3.8 mmol/L (3.5-5.1); TOT PROT 6.5 g/dl (6.4-8.2)
--- NOTE | 2019-05-10 09:23 | PDOC ---
Attending Attestation - Resident Resident Name: Gerri Mckeonhan - ED Attending Attestation I have performed the following: I have examined & evaluated the patient, The case was reviewed & discussed with the resident, I agree w/resident's findings & plan, Exceptions are as noted - HPI HPI: 05/10/19 09:18 38 F with h/o GERD, sz d/o, L ureteral kidney stone s/p stone retrieval and JJ stent placement. Pt reports that since the procedure, she has had persistent pain in her L flank radiating into her abdomen. Also reports hematuria that has improved but not yet resolved. Pt denies any F/C. Denies N/V. Denies diarrhea/ constipation. Pt has been taking tylenol with minimal relief. - Physicial Exam PE: 05/10/19 09:21 "GENERAL: Awake, alert, and fully oriented, in no acute distress. HEAD: No signs of trauma EYES: PERRLA, EOMI, sclera anicteric, conjunctiva clear ENT: Auricles normal inspection, hearing grossly normal, nares patent, oropharynx clear without exudates. Moist mucosa NECK: Nontender, no stepoffs, Normal ROM, supple, no lymphadenopathy, JVD, or masses LUNGS: Breath sounds equal, clear to auscultation bilaterally. No wheezes, and no crackles HEART: Regular rate and rhythm, normal S1 and S2, no murmurs, rubs or gallops ABDOMEN: + TTP LUQ and LLQ, + L CVAT, normoactive bowel sounds. No guarding, no rebound. No masses EXTREMITIES: Normal range of motion, no edema. No clubbing or cyanosis. No cords, erythema, or tenderness NEUROLOGICAL: Cranial nerves II through XII intact. 5/5 strength and sensation in all extremities, Normal speech, normal gait, normal cerebellar function SKIN: Warm, Dry, normal turgor, no rashes or lesions noted. - Medical Decision Making 05/10/19 09:22 38 F with L flank and abdominal pain with hematuria s/p JJ stent. Possible stent bother, will evaluate for infection or other post-op complication. - Labs, UA - CTAP - IVF, pain control - Discuss with Dr. Jones 05/10/19 12:53 Labs wnl, UA shows hematuria CT shows no acute findings, stent in place Free fluid noted, likely normal post-op finding. Low suspicion for acute bleed, as pt's H/H is stable. Discussed with Dr. Jones, who does not recommend any intervention at this time. Would like to start abx Pt reassessed - pain is now well controlled. Tolerating PO. Pt is well appearing, with normal vitals. Clinically stable for DC at this time. I discussed the physical exam findings, ancillary test results and final diagnoses with the patient. I answered all of the patient's questions. The patient was satisfied with the care received and felt comfortable with the discharge plan and treatment plan. The patient agrees to follow up with the primary care physician within 24-72 hours.
[2019-05-10] MEDS ORDERED: morphine CARPU-JECT 2 MG/1 ML DISP.SYRIN IVPUSH ONE (10:45)
[2019-05-10] MEDS ORDERED: MORPHINE SULFATE 2 MG/ML VIAL ONE (10:46)
[2019-05-10 13:36] VITALS: BP 115/73; PULSE 89; TEMP 97.7
--- NOTE | 2019-05-10 15:53 | EKG ---
Test Reason : Blood Pressure : / mmHG Vent. Rate : 082 BPM Atrial Rate : 082 BPM P-R Int : 134 ms QRS Dur : 082 ms QT Int : 364 ms P-R-T Axes : 055 053 051 degrees QTc Int : 425 ms NORMAL SINUS RHYTHM NONSPECIFIC T WAVE ABNORMALITY ABNORMAL ECG WHEN COMPARED WITH ECG OF 03-MAY-2019 21:24, NO SIGNIFICANT CHANGE WAS FOUND Confirmed by BINH COLLINS MD ([id number]) on 05/10/2019 3:53:20 PM Referred By: Confirmed By:BINH COLLINS MD
== END 2019-05-10 13:25 | disposition home or self-care (01) ==
LOC: JER 07:17
PROC: 3E033NZ Introduction of Analgesics, Hypnotics, Sedatives into Peripheral Vein, Percutaneous Approach (ICD-10-PCS; principal; 2019-05-10)
PROC: 3E033NZ Introduction of Analgesics, Hypnotics, Sedatives into Peripheral Vein, Percutaneous Approach (ICD-10-PCS; 2019-05-10)
DX: N39.0 Urinary tract infection, site not specified (principal); R31.9 Hematuria, unspecified; Z87.442 Personal history of urinary calculi; K21.9 Gastro-esophageal reflux disease without esophagitis; G40.909 Epilepsy, unspecified, not intractable, without status epilepticus; Z96.0 Presence of urogenital implants; Z98.890 Other specified postprocedural states
CPT/HCPCS: 36415; 74177-TC; 80053; 81003; 83690; 84703; 85025; 87086; 93005; 93010; 96374; 96375; 99283-25; J0131; Q9967

== ENCOUNTER 2019-09-20 15:45 | Emergency (ER) | payer OTHER ==
[2019-09-20 16:21] VITALS: BP 124/88; PULSE 99; TEMP 98.2; BMI 21.7
--- NOTE | 2019-09-20 16:22 | PDOC ---
Rapid Medical Evaluation Chief Complaint: Pain Time Seen by Provider: 09/20/19 16:17 Medical Evaluation: Allergies Allergy/AdvReac Type Severity Reaction Status Date / Time No Known Allergies Allergy Verified 03/31/19 10:18 09/20/19 16:20 This patient had brief medical evaluation in triage cc: abdominal pain x 2 days HPI:Patient reports abdominal pain x 2 days with nausea. Denies vomiting or diarrhea. PE: appears well lungs clear bilaterally abdomen with + epigastric tenderness Orders: labs This patient will proceed to main ed for further evaluation Discharge Disposition - Diagnosis Abdominal pain - Referrals - Patient Instructions - Post Discharge Activity
--- NOTE | 2019-09-20 16:36 | PDOC ---
History of Present Illness - General History Source: Patient - History of Present Illness Timing/Duration: reports: constant, other (this am) Quality: reports: moderate Abdominal Pain Onset Location: reports: epigastric Pain Radiation: reports: no radiation <DivehiGus - Last Filed: 09/20/19 17:25> <Moses Fox - Last Filed: 09/23/19 10:04> - General Chief Complaint: Pain Stated Complaint: STOMACH PAIN Time Seen by Provider: 09/20/19 16:17 Past History - Past Medical History Anemia: Yes Asthma: No Cancer: No Cardiac Disorders: No CVA: No COPD: No CHF: No Dementia: No Diabetes: No GI Disorders: Yes (ulcers) Disorders: No HTN: No Hypercholesterolemia: No Liver Disease: No Seizures: Yes Thyroid Disease: No - Surgical History Abdominal Surgery: No Appendectomy: No Cardiac Surgery: No Cholecystectomy: No Lung Surgery: No Neurologic Surgery: No Orthopedic Surgery: No - Psycho Social/Smoking Cessation Hx Smoking Status: No Smoking History: Never smoked Have you smoked in the past 12 months: No Number of Cigarettes Smoked Daily: 0 Information on smoking cessation initiated: No Hx Alcohol Use: No Drug/Substance Use Hx: No Substance Use Type: None Hx Substance Use Treatment: No <Gus Day - Last Filed: 09/20/19 17:25> <Moses Fox - Last Filed: 09/23/19 10:04> - Past Medical History Allergies/Adverse Reactions: Allergies Allergy/AdvReac Type Severity Reaction Status Date / Time No Known Allergies Allergy Verified 03/31/19 10:18 Home Medications: Ambulatory Orders Divalproex [Depakote -] 500 mg PO BID 07/09/18 traZODone HCL [Trazodone HCl] 50 mg PO HS 07/09/18 Acetaminophen [Arthritis Pain Relief] 650 mg PO QID #20 tablet.er 12/26/18 Buspirone HCl [Buspar -] 10 mg PO TID 12/26/18 Fluticasone Prop 0.05% Nasal [Flonase -] 1 - 2 spray NS DAILY #1 spray.pump 01/10/19 Levetiracetam 500 mg PO BID 05/04/19 Acetaminophen [Tylenol -] 1,000 mg PO Q6H PRN 5 Days #20 tablet 05/10/19 Cymbalta - 1 tab PO 08/16/19 Famotidine [Pepcid] 20 mg PO BID #14 tablet 09/20/19 Sucralfate [Carafate -] 1 gm PO ASDIR #28 tablet 09/20/19 Review of Systems - Review of Systems Constitutional: No: Chills, Fever ABD/GI: No: Blood Streaked Bowels, Constipated, Diarrhea, Nausea, Rectal Bleeding, Vomiting, Tarry Stools : No: Dysuria, Discharge, Flank Pain, Hematuria <Gus Day - Last Filed: 09/20/19 17:25> *Physical Exam - Vital Signs Last Vital Signs Temp Pulse Resp BP Pulse Ox 98.2 F 99 H 17 124/88 100 09/20/19 16:16 09/20/19 16:16 09/20/19 16:16 09/20/19 16:16 09/20/19 16:16 - Physical Exam General Appearance: Yes: Appropriately Dressed, Mild Distress HEENT: positive: Normal Voice Neck: positive: Supple Respiratory/Chest: negative: Respiratory Distress Gastrointestinal/Abdominal: positive: Normal Bowel Sounds, Tender (sig ttp to epigastrium), Soft. negative: Distended, Guarding, Rebound Musculoskeletal: negative: CVA Tenderness Integumentary: positive: Dry, Warm Neurologic: positive: Fully Oriented, Alert, Normal Mood/Affect <Gus Day - Last Filed: 09/20/19 17:25> - Vital Signs Last Vital Signs Temp Pulse Resp BP Pulse Ox 98.2 F 99 H 17 124/88 100 09/20/19 16:16 09/20/19 16:16 09/20/19 16:16 09/20/19 16:16 09/20/19 16:16 <Moses Fox - Last Filed: 09/23/19 10:04> ED Treatment Course - Medications Given in the ED: ED Medications Discontinued Medications Generic Name Dose Route Start Last Admin Trade Name Freq PRN Reason Stop Dose Admin Acetaminophen 1,000 mg 09/20/19 16:39 09/20/19 17:26 Tylenol - PO 09/20/19 16:40 1,000 mg ONCE ONE Administration Sucralfate 1 gm 09/20/19 16:39 09/20/19 17:30 Carafate Oral Suspension - PO 09/20/19 16:40 Not Given ONCE ONE Sucralfate 1 gm 09/20/19 17:24 09/20/19 17:26 Carafate - PO 09/20/19 17:25 1 gm ONCE ONE Administration <Moses Fox - Last Filed: 09/23/19 10:04> Medical Decision Making - Medical Decision Making 09/20/19 16:29 39 yo F, PUD, was on pepcid but has since ran out, states her last endoscopy 6 months ago showed active ulcer but not given triple therapy for unclear reasons, follows up with Dr. Brown in 1 week, here with epigastric pain since this a.m. consistent with her ulcer pain. Afraid to eat as pain is worse with p.o. intake per patient. No nausea, vomiting, melena, bright red blood per rectum, diarrhea, constipation, fever or chills. Took maalox [employer] w/ no relief see exam Epigastric pain C/w pt's PUD per hx Active ulcer on scope 6 months ago but no tripple therapy per pt Takes pepcid daily but ran out GI appt next week Stable w/ ttp to epigastrium -GI cocktail in ED and dc w/ pepcid and sucralfate -Has appt w/ Lantin next week, will defer further management to <Gus Day - Last Filed: 09/20/19 17:25> - Medical Decision Making The patient was seen and evaluated in conjunction with MARIETTA Day under my direct supervision, ancillary studies were reviewed. I agree with the plan as outlined by MARIETTA Day . <Moses Fox - Last Filed: 09/23/19 10:04> Discharge - Discharge Information Problems reviewed: Yes <Gus Day - Last Filed: 09/20/19 17:25> <Moses Fox - Last Filed: 09/23/19 10:04> - Discharge Information Clinical Impression/Diagnosis: Epigastric abdominal pain Condition: Good Disposition: HOME - Additional Discharge Information Prescriptions: Famotidine [Pepcid] 20 mg PO BID #14 tablet Sucralfate [Carafate -] 1 gm PO ASDIR #28 tablet - Patient Discharge Instructions Patient Printed Discharge Instructions: DI for Peptic Ulcer Additional Instructions: Take medications as prescribed and follow-up with Dr. Brown at scheduled appointment next week
[2019-09-20] MEDS ORDERED: ACETAMINOPHEN 325 MG TABLET (FP) PO ONE (16:39)
[2019-09-20] MEDS ORDERED: SUCRALFATE 1 GM/10 ML UNIT DOSE CUPS PO ONE (16:39)
[2019-09-20] MEDS ORDERED: SUCRALFATE 1 GM TABLET (FP) ONE (17:22)
[2019-09-20] MEDS ORDERED: SUCRALFATE 1 GM TABLET (FP) PO ONE (17:24)
[2019-09-20] MEDS ORDERED: ACETAMINOPHEN 500 MG TABLET (FP) ONE (17:24)
== END 2019-09-20 17:40 | disposition home or self-care (01) ==
LOC: JER 15:45
DX: K27.9 Peptic ulcer, site unspecified, unspecified as acute or chronic, without hemorrhage or perforation (principal); G40.909 Epilepsy, unspecified, not intractable, without status epilepticus; D64.9 Anemia, unspecified
CPT/HCPCS: 84703; 99283-25

== ENCOUNTER 2020-07-04 06:24 | Day surgery (SDC) | payer OTHER ==
[2020-07-03 14:14] VITALS: BMI 21.2
[2020-07-04] MEDS ORDERED: MIDAZOLAM HCL 2 MG/2 ML SINGLE DOSE VIAL ONE (12:34)
[2020-07-04] MEDS ORDERED: PROPOFOL 20 ML ONE (12:34)
[2020-07-04] MEDS ORDERED: ceFAZolin SODIUM 1 GM VIAL IVPB ONE (12:59)
[2020-07-04] MEDS ORDERED: ceFAZolin SODIUM 1 GM VIAL ONE (13:01)
[2020-07-04] MEDS ORDERED: diphenhydrAMINE HCL 25 MG CAPSULE (FP) PO ONE (14:29)
[2020-07-04 16:21] VITALS: BP 103/75; PULSE 76; TEMP 98.8
== END 2020-07-04 15:45 | disposition home or self-care (01) ==
LOC: JASU-SURG 06:24
PROVIDERS: ATTEND Urology
PROC: 0TF4XZZ Fragmentation in Left Kidney Pelvis, External Approach (ICD-10-PCS; principal; 2020-07-04 11:45)
DX: N20.0 Calculus of kidney (principal)
CPT/HCPCS: 84703

== ENCOUNTER 2020-10-31 15:57 | Emergency (ER) | payer OTHER ==
[2020-10-31 16:37] VITALS: BMI 21.9
[2020-10-31] MEDS ORDERED: ACETAMINOPHEN 500 MG TABLET (FP) PO ONE (16:53)
[2020-10-31] MEDS ORDERED: ACETAMINOPHEN 325 MG TABLET (FP) ONE (16:55)
[2020-10-31 18:22] VITALS: BP 111/70; PULSE 90; TEMP 98.1
== END 2020-10-31 17:51 | disposition home or self-care (01) ==
LOC: JER 15:57
DX: R05 Cough (principal); R53.83 Other fatigue; Z11.52 Encounter for screening for COVID-19
CPT/HCPCS: 71046-TC-FY; 99284-25; C9803; U0003; U0005

== ENCOUNTER 2021-04-12 04:18 | Day surgery (SDC) | payer OTHER ==
[2021-04-05 11:54] VITALS: BMI 20.8
[~2021-04-12 04:18] MED LIST: CEFAZOLIN 2 GM in DEXTROSE 5%-WATER - 100 ML IVPB ONE; PHENAZOPYRIDINE HCL 100 MG TABLET (FP) PO ONE
[2021-04-12] MEDS ORDERED: ACETAMINOPHEN 1000 MG/100 ML VIAL (NON FORMULARY) IVPB ONE ×2 (06:09→07:25)
[2021-04-12] MEDS ORDERED: GABAPENTIN 300 MG CAPSULE PO ONE (06:09)
[2021-04-12] MEDS ORDERED: PHENAZOPYRIDINE HCL 100 MG TABLET (FP) ONE (06:34)
[2021-04-12] MEDS ORDERED: ACETAMINOPHEN INJECTION 100 ML IVPB ONE (06:34)
[2021-04-12] MEDS ORDERED: ceFAZolin SODIUM 1 GM VIAL ONE ×2 (06:34→16:56)
[2021-04-12] MEDS ORDERED: MIDAZOLAM HCL 2 MG/2 ML SINGLE DOSE VIAL ONE ×2 (07:08)
[2021-04-12] MEDS ORDERED: BUPIVACAINE HCL/PF 0.5% (5MG/ML) 10 ML VIAL ONE (07:09)
[2021-04-12] MEDS ORDERED: BUPIVACAINE LIPOSOME/PF (EXPAREL) 266 MG/20 ML VIAL ONE (07:09)
[2021-04-12] MEDS ORDERED: SUCCINYLCHOLINE CHLORIDE 200 MG/10 ML SYRINGE ONE (07:15)
[2021-04-12] MEDS ORDERED: ROCURONIUM BROMIDE 50 MG/5 ML SYRINGE ONE (07:15)
[2021-04-12] MEDS ORDERED: PROPOFOL 20 ML ONE ×2 (07:15)
[2021-04-12] MEDS ORDERED: LIDOCAINE HCL 2% (20ML MULTI-DOSE VIAL) ONE (07:43)
[2021-04-12] MEDS ORDERED: ceFAZolin SODIUM 1 GM VIAL IVPB ONE (08:10)
[2021-04-12] MEDS ORDERED: SCOPOLAMINE HYDROBROMIDE 1 PATCH PATCH.TD72 ONE (08:23)
[2021-04-12] MEDS ORDERED: HYDROmorphone HCl 2 MG/ML VIAL ONE (08:27)
[2021-04-12] MEDS ORDERED: NEOSTIGMINE METHYLSULFATE 0.5 MG/ML - 10 ML MDV ONE (09:28)
[2021-04-12] MEDS ORDERED: PROMETHAZINE HCL 25 MG/1 ML VIAL IVPUSH PRN (10:24)
[2021-04-12] MEDS ORDERED: oxyCODONE HCL 5 MG TABLET PO PRN ×2 (10:24→10:45)
[2021-04-12] MEDS ORDERED: SIMETHICONE 80 MG TAB.CHEW (FP) PO PRN (10:45)
[2021-04-12] MEDS ORDERED: DOCUSATE SODIUM 100 MG CAPSULE (FP) PO PRN (10:45)
[2021-04-12] MEDS ORDERED: BISACODYL 5 MG TABLET.DR (FP) PO PRN (10:45)
[2021-04-12] MEDS ORDERED: ONDANSETRON 4 MG/2 ML VIAL IVPUSH PRN (10:45)
[2021-04-12] MEDS ORDERED: ALBUTEROL SO4 HFA INHALER IH PRN ×2 (10:50→11:52)
[2021-04-12] MEDS: LACTATED RINGERS SOLUTION 1,000 ML IV SCH (13:14)
[2021-04-12] MEDS: oxyCODONE HCL 5 MG TABLET PO PRN (14:51)
[2021-04-12] MEDS: ACETAMINOPHEN 325 MG TABLET (FP) PO SCH ×2 (16:06→22:53)
[2021-04-12] MEDS ORDERED: DEXTROSE 5%-WATER - 50 ML IVPB ONE (16:56)
[2021-04-12] MEDS: CEFAZOLIN 1 GM in DEXTROSE 5%-WATER - 50 ML IVPB SCH (17:55)
[2021-04-12 18:33] LABS: HEMATOCRIT 36.6 % (32.4-45.2); HEMOGLOBIN 12.5 GM/dL (10.7-15.3); MCH 31.4 pg (25.7-33.7); MCHC 34.1 g/dl (32.0-36.0); MEAN CELL VOLUME 92.1 fl (80-96); MEAN PLT VOLUME 8.4 fl (7.5-11.1); PLATELET COUNT 198 10^3/uL (134-434); RBC 3.98 M/mm3 (3.60-5.2); RDW 12.9 % (11.6-15.6); WHITE BLOOD COUNT 13.3 K/mm3 (4.0-10.0)
[2021-04-12 19:08] LABS: CALCIUM 8.6 mg/dL (8.5-10.1)
[2021-04-12 19:12] LABS: CREATININE 0.6 mg/dL (0.55-1.3)
[2021-04-12] MEDS ORDERED: DIVALPROEX SODIUM 250 MG TABLET E.C. PO SCH (22:00)
[2021-04-12] MEDS ORDERED: traZODone HCL 50 MG TABLET (FP) PO SCH (22:00)
[2021-04-12] MEDS ORDERED: DIVALPROEX SODIUM 500 MG TABLET E.C. PO SCH (22:30)
[2021-04-12] MEDS: busPIRone HCL 10 MG TABLET (FP) PO SCH (22:56)
[2021-04-12] MEDS ORDERED: MOMETASONE FUROATE 110 MCG/IH INHALER IH SCH (23:45)
[2021-04-13] MEDS ORDERED: DEXTROSE 5%-WATER - 50 ML IVPB ONE (00:50)
[2021-04-13] MEDS ORDERED: ceFAZolin SODIUM 1 GM VIAL ONE (00:50)
[2021-04-13] MEDS: CEFAZOLIN 1 GM in DEXTROSE 5%-WATER - 50 ML IVPB SCH (00:55)
[2021-04-13] MEDS: ACETAMINOPHEN 325 MG TABLET (FP) PO SCH (01:20)
[2021-04-13] MEDS ORDERED: diphenhydrAMINE HCL 25 MG CAPSULE (FP) PO PRN (01:24)
[2021-04-13] MEDS: oxyCODONE HCL 5 MG TABLET PO PRN (08:03)
[2021-04-13 08:47] LABS: HEMATOCRIT 32.9 % (32.4-45.2); HEMOGLOBIN 11.6 GM/dL (10.7-15.3); MCH 32.9 pg (25.7-33.7); MCHC 35.2 g/dl (32.0-36.0); MEAN CELL VOLUME 93.4 fl (80-96); PLATELET COUNT 184 10^3/uL (134-434); RBC 3.52 M/mm3 (3.60-5.2); RDW 12.7 % (11.6-15.6); WHITE BLOOD COUNT 7.7 K/mm3 (4.0-10.0)
[2021-04-13 09:25] LABS: BLOOD UREA NITROGEN 8.6 mg/dL (7-18); CALCIUM 8.5 mg/dL (8.5-10.1)
[2021-04-13 09:28] LABS: CREATININE 0.6 mg/dL (0.55-1.3)
[2021-04-13] MEDS ORDERED: ENOXAPARIN NA (PORCINE) 40 MG/0.4 ML DISP.SYRIN SQ SCH (10:00)
[2021-04-13] MEDS ORDERED: levETIRAcetam 500 MG TABLET (FP) PO SCH (10:00)
[2021-04-13] MEDS ORDERED: FAMOTIDINE 20 MG TABLET PO PRN (10:00)
[2021-04-13 10:23] VITALS: BP 99/63; PULSE 81; TEMP 98.6
[2021-04-13] MEDS: busPIRone HCL 10 MG TABLET (FP) PO SCH (11:33)
[2021-04-13] MEDS: LACTATED RINGERS SOLUTION 1,000 ML IV SCH (11:33)
[2021-04-13] MEDS ORDERED: POTASSIUM CHLORIDE TABS 20 MEQ TABLET.ER (FP) PO ONE (12:00)
== END 2021-04-13 17:22 | disposition home or self-care (01) ==
LOC: JASUSAT 04:18 → J8W 12:30 → JASUSAT 04-13 17:22
PROVIDERS: ATTEND Obstetrics & Gynecology
PROC: 8E0W4CZ Robotic Assisted Procedure of Trunk Region, Percutaneous Endoscopic Approach (ICD-10-PCS; 2021-04-12)
PROC: 0UB14ZZ Excision of Left Ovary, Percutaneous Endoscopic Approach (ICD-10-PCS; 2021-04-12)
PROC: 0UT9FZZ Resection of Uterus, Via Natural or Artificial Opening With Percutaneous Endoscopic Assistance (ICD-10-PCS; principal; 2021-04-12 07:30)
PROC: 0UT7FZZ Resection of Bilateral Fallopian Tubes, Via Natural or Artificial Opening With Percutaneous Endoscopic Assistance (ICD-10-PCS; 2021-04-12 07:30)
DX: D25.9 Leiomyoma of uterus, unspecified (principal); N80.0 Endometriosis of uterus; N70.11 Chronic salpingitis; N83.8 Other noninflammatory disorders of ovary, fallopian tube and broad ligament; N83.202 Unspecified ovarian cyst, left side
CPT/HCPCS: 58554; 58662; S2900; 36415; 71275-TC; 80048; 85027; 88302-TC; 88305-TC; 88307-TC; 94760; J0131; Q9967

== ENCOUNTER 2021-06-21 10:10 | Emergency (ER) | payer OTHER ==
[2021-06-21 11:01] VITALS: BP 108/69; PULSE 94; TEMP 98.3; BMI 21.0
[2021-06-21] MEDS ORDERED: KETOROLAC TROMETHAMINE 30 MG/1 ML VIAL IVPUSH ONE (11:46)
[2021-06-21] MEDS ORDERED: SODIUM CHLORIDE 0.9% 500 ML INFUS.BAG IV ONE (11:46)
[2021-06-21] MEDS ORDERED: KETOROLAC TROMETHAMINE 30 MG/1 ML VIAL ONE (11:47)
[2021-06-21] MEDS ORDERED: ONDANSETRON 4 MG/2 ML VIAL IVPUSH ONE (11:48)
[2021-06-21] MEDS ORDERED: ONDANSETRON 4 MG/2 ML VIAL ONE (11:48)
[2021-06-21 12:25] LABS: BASO % 0.1 % (0-2.0); EOS % 0.3 % (0-4.5); HEMATOCRIT 39.7 % (32.4-45.2); HEMOGLOBIN 13.5 GM/dL (10.7-15.3); LYMPH % 7.4 % (8-40); MCH 31.4 pg (25.7-33.7); MEAN CELL VOLUME 92.3 fl (80-96); MEAN PLT VOLUME 8.4 fl (7.5-11.1); MONO % 3.3 % (3.8-10.2); NEUT % 88.9 % (42.8-82.8); PLATELET COUNT 239 10^3/uL (134-434); WHITE BLOOD COUNT 14.5 K/mm3 (4.0-10.0)
[2021-06-21 13:17] LABS: BLOOD UREA NITROGEN 9.4 mg/dL (7-18); CALCIUM 9.4 mg/dL (8.5-10.1)
[2021-06-21 13:18] LABS: ALBUMIN 3.9 g/dl (3.4-5.0)
[2021-06-21 13:20] LABS: CREATININE 0.6 mg/dL (0.55-1.3)
[2021-06-21 13:22] LABS: BILIRUBIN,TOTAL 1.6 mg/dL (0.2-1); TOT PROT 7.5 g/dl (6.4-8.2)
[2021-06-21] MEDS ORDERED: morphine SULFATE 4 MG/ML VIAL IVPUSH ONE (13:26)
[2021-06-21 13:32] LABS: EPI CELLS 30 /uL (0-25.1); HYALINE CASTS 5 /uL (0-3.1); PH,URINE 5.5 (5.0-8.0); URINE APPEARANCE CLEAR; URINE BACTERIA 142 /uL (0-1359); URINE BILIRUBIN NEGATIVE (NEGATIVE); URINE COLOR YELLOW; URINE GLUCOSE (UA) NEGATIVE (NEGATIVE); URINE KETONE 2+ (NEGATIVE); URINE LEUK ESTERASE 1+ (NEGATIVE); URINE NITRITE NEGATIVE (NEGATIVE); URINE PROTEIN TRACE (NEGATIVE); URINE RBC 27 /uL (0-23.9); URINE WBC 57 /uL (0-25.8)
[2021-06-21] MEDS ORDERED: morphine SULFATE 4 MG/ML VIAL ONE (13:34)
== END 2021-06-21 16:06 | disposition home or self-care (01) ==
LOC: JER 10:10
PROC: 3E0333Z Introduction of Anti-inflammatory into Peripheral Vein, Percutaneous Approach (ICD-10-PCS; principal; 2021-06-21)
PROC: 3E033GC Introduction of Other Therapeutic Substance into Peripheral Vein, Percutaneous Approach (ICD-10-PCS; 2021-06-21)
PROC: 3E033GC Introduction of Other Therapeutic Substance into Peripheral Vein, Percutaneous Approach (ICD-10-PCS; 2021-06-21)
DX: R10.9 Unspecified abdominal pain (principal)
CPT/HCPCS: 36415; 74176-TC; 80053; 81003; 84703; 85025; 87086; 99285-25

== ENCOUNTER 2021-07-14 18:38 | Emergency (ER) | payer OTHER ==
[2021-07-14 19:10] VITALS: BP 104/60; PULSE 125; TEMP 97.9; BMI 29.2
[2021-07-14] MEDS ORDERED: ACETAMINOPHEN 500 MG TABLET (FP) PO ONE (20:04)
[2021-07-14] MEDS ORDERED: ACETAMINOPHEN 500 MG TABLET (FP) ONE (20:29)
[2021-07-15 19:06] LABS: SARS-CoV-2 NAA Not Detected (Not Detected)
== END 2021-07-14 21:15 | disposition home or self-care (01) ==
LOC: JER 18:38
DX: J02.9 Acute pharyngitis, unspecified (principal)
CPT/HCPCS: 87070; 87804; 99284-25; C9803; U0003; U0005

== ENCOUNTER 2021-07-28 14:27 | Emergency (ER) | payer OTHER ==
[2021-07-28 15:03] VITALS: BP 117/70; TEMP 98.6; BMI 18.3
[2021-07-28] MEDS ORDERED: SULFAMETHOXAZOLE/TRIMETHOPRIM 800MG/160MG D.S. TABLET PO ONE (17:01)
[2021-07-28] MEDS ORDERED: ACETAMINOPHEN 325 MG TABLET (FP) PO ONE (17:01)
[2021-07-28 17:17] VITALS: PULSE 85
[2021-07-28] MEDS ORDERED: ACETAMINOPHEN 325 MG TABLET (FP) ONE (17:21)
[2021-07-28] MEDS ORDERED: SULFAMETHOXAZOLE/TRIMETHOPRIM 800MG/160MG D.S. TABLET ONE (17:21)
== END 2021-07-28 17:36 | disposition home or self-care (01) ==
LOC: JER 14:27
PROC: 0X953ZZ Drainage of Left Axilla, Percutaneous Approach (ICD-10-PCS; principal; 2021-07-28)
DX: L02.412 Cutaneous abscess of left axilla (principal)
CPT/HCPCS: 99283-25

== ENCOUNTER 2021-07-30 11:47 | Emergency (ER) | payer OTHER ==
[2021-07-30 12:12] VITALS: BP 97/63; PULSE 105; TEMP 97.8; BMI 21.0
[2021-07-30] MEDS ORDERED: LIDOCAINE HCL 1%, 10 MG/ML (50 mL VIAL) SQ ONE (13:34)
[2021-07-30] MEDS ORDERED: LIDOCAINE HCL 1%, 10 MG/ML (20ML VIAL) ONE (13:36)
== END 2021-07-30 14:41 | disposition home or self-care (01) ==
LOC: JERFT 11:47
DX: Z48.00 Encounter for change or removal of nonsurgical wound dressing (principal)
CPT/HCPCS: 99281-25

== ENCOUNTER 2021-08-02 16:22 | Emergency (ER) | payer OTHER ==
[2021-08-02 16:32] VITALS: BP 105/69; PULSE 95; TEMP 97.9; BMI 21.0
== END 2021-08-02 17:43 | disposition home or self-care (01) ==
LOC: JERFT 16:22
DX: L73.2 Hidradenitis suppurativa (principal); Z48.00 Encounter for change or removal of nonsurgical wound dressing
CPT/HCPCS: 99281-25

== ENCOUNTER 2021-09-01 07:46 | Emergency (ER) | payer OTHER ==
[2021-09-01 07:58] VITALS: BMI 21.0
[2021-09-01] MEDS ORDERED: SODIUM CHLORIDE 0.9% 500 ML INFUS.BAG IV ONE (08:20)
[2021-09-01] MEDS ORDERED: ONDANSETRON 4 MG/2 ML VIAL IVPUSH ONE (08:21)
[2021-09-01] MEDS ORDERED: FAMOTIDINE 20 MG/50 ML IVPB 20 MG/50 ML MG IVPB ONE ×2 (08:22→08:48)
[2021-09-01] MEDS ORDERED: ONDANSETRON 4 MG/2 ML VIAL ONE (08:48)
[2021-09-01] MEDS ORDERED: METOCLOPRAMIDE HCL INJECTION 10 MG/2 ML VIAL IVPUSH ONE (09:30)
[2021-09-01 09:36] LABS: EPI CELLS 25 /uL (0-25.1); HYALINE CASTS 3 /uL (0-3.1); PH,URINE 7.5 (5.0-8.0); URINE APPEARANCE CLEAR; URINE BACTERIA 54 /uL (0-1359); URINE BILIRUBIN NEGATIVE (NEGATIVE); URINE COLOR YELLOW; URINE GLUCOSE (UA) NEGATIVE (NEGATIVE); URINE KETONE TRACE (NEGATIVE); URINE LEUK ESTERASE NEGATIVE (NEGATIVE); URINE NITRITE NEGATIVE (NEGATIVE); URINE PROTEIN 1+ (NEGATIVE); URINE RBC 48 /uL (0-23.9); URINE WBC 9 /uL (0-25.8)
[2021-09-01] MEDS ORDERED: METOCLOPRAMIDE HCL INJECTION 10 MG/2 ML VIAL ONE (09:36)
[2021-09-01 09:37] LABS: HCG,QUALITATIVE URINE Negative
[2021-09-01 11:08] VITALS: BP 118/80; PULSE 100; TEMP 98.5
== END 2021-09-01 11:20 | disposition home or self-care (01) ==
LOC: JER 07:46
PROC: 3E033NZ Introduction of Analgesics, Hypnotics, Sedatives into Peripheral Vein, Percutaneous Approach (ICD-10-PCS; principal; 2021-09-01)
PROC: 3E033GC Introduction of Other Therapeutic Substance into Peripheral Vein, Percutaneous Approach (ICD-10-PCS; 2021-09-01)
PROC: 3E033GC Introduction of Other Therapeutic Substance into Peripheral Vein, Percutaneous Approach (ICD-10-PCS; 2021-09-01)
DX: R11.2 Nausea with vomiting, unspecified (principal)
CPT/HCPCS: 81003; 84703; 96365; 96375; 99284-25

== ENCOUNTER 2022-01-06 17:39 | Emergency (ER) | payer OTHER ==
[2022-01-06 17:45] VITALS: BP 120/89; PULSE 122; TEMP 98.8; BMI 21.7
[2022-01-06] MEDS ORDERED: LORATADINE 10 MG TABLET PO ONE (19:34)
[2022-01-06] MEDS ORDERED: LORATADINE 10 MG TABLET ONE (19:43)
== END 2022-01-06 20:35 | disposition home or self-care (01) ==
LOC: JER 17:39
DX: R05.9 Cough, unspecified (principal)
CPT/HCPCS: 71046-TC-FY; 99284-25

== ENCOUNTER 2022-02-04 11:10 | Emergency (ER) | payer OTHER ==
[2022-02-04 11:59] VITALS: BP 109/76; PULSE 100; TEMP 98.7; BMI 21.0
[2022-02-04 13:49] LABS: THROAT:GRP A STREP NOT DETECTED (NOTDETECTED)
== END 2022-02-04 13:42 | disposition home or self-care (01) ==
LOC: JER 11:10
DX: A09 Infectious gastroenteritis and colitis, unspecified (principal); R19.7 Diarrhea, unspecified; R11.2 Nausea with vomiting, unspecified
CPT/HCPCS: 0241U-QW; 87651; 99283-25

== ENCOUNTER 2022-02-18 01:06 | Emergency (ER) | payer OTHER ==
[2022-02-18 01:18] VITALS: BP 96/69; PULSE 68; RESP 18; TEMP 98; BMI 21.7
[2022-02-18] MEDS ORDERED: ACETAMINOPHEN 325 MG TABLET (FP) PO ONE (01:28)
[2022-02-18] MEDS ORDERED: DIPHTH,PERTUSS(ACELL),TET 0.5 ML DISP.SYRIN IM ONE ×2 (01:28→01:46)
[2022-02-18] MEDS ORDERED: ACETAMINOPHEN 325 MG TABLET (FP) ONE (01:46)
[2022-02-18] MEDS ORDERED: BACITRACIN 15 GM TUBE TOPICAL OINTMENT TP ONE (03:37)
[2022-02-18] MEDS ORDERED: BACITRACIN 15 GM TUBE TOPICAL OINTMENT ONE (03:53)
== END 2022-02-18 03:54 | disposition home or self-care (01) ==
LOC: JER 01:06
PROC: 3E0234Z Introduction of Serum, Toxoid and Vaccine into Muscle, Percutaneous Approach (ICD-10-PCS; principal; 2022-02-18)
DX: S69.92XA Unspecified injury of left wrist, hand and finger(s), initial encounter (principal); W19.XXXA Unspecified fall, initial encounter
CPT/HCPCS: 73090-TC-LT-FY; 73110-TC-LT-FY; 73130-TC-LT-FY; 90471; 90715; 99284-25

== ENCOUNTER 2022-04-18 06:35 | Observation (INO) | payer OTHER ==
[2022-04-18] MEDS ORDERED: SODIUM CHLORIDE 1,000 ML IV STA ×2 (07:11→09:34)
[2022-04-18] MEDS ORDERED: ONDANSETRON 4 MG/2 ML VIAL IVPUSH ONE ×2 (07:11→12:12)
[2022-04-18] MEDS ORDERED: morphine CARPU-JECT 2 MG/1 ML DISP.SYRIN IVPUSH ONE ×3 (07:11→09:34)
[2022-04-18] MEDS ORDERED: ACETAMINOPHEN 1000 MG/100 ML BAG IVPB ONE (07:12)
[2022-04-18] MEDS ORDERED: ONDANSETRON 4 MG/2 ML VIAL ONE ×2 (07:36→12:14)
[2022-04-18] MEDS ORDERED: ACETAMINOPHEN INJECTION 100 ML IVPB ONE (07:36)
[2022-04-18 07:51] LABS: BASO % 0.3 % (0-2.0); EOS % 1.2 % (0-4.5); HEMATOCRIT 40.2 % (32.4-45.2); HEMOGLOBIN 13.7 GM/dL (10.7-15.3); LYMPH % 22.3 % (8-40); MCHC 34.2 g/dl (32.0-36.0); MEAN CELL VOLUME 93.4 fl (80-96); MEAN PLT VOLUME 7.5 fl (7.5-11.1); MONO % 3.7 % (3.8-10.2); NEUT % 72.5 % (42.8-82.8); PLATELET COUNT 280 10^3/uL (134-434); RDW 13.5 % (11.6-15.6); WHITE BLOOD COUNT 10.8 K/mm3 (4.0-10.0)
[2022-04-18 08:10] LABS: ALBUMIN 3.9 g/dl (3.4-5.0); BLOOD UREA NITROGEN 10.1 mg/dL (7-18); CALCIUM 9.1 mg/dL (8.5-10.1)
[2022-04-18 08:13] LABS: CREATININE 0.6 mg/dL (0.55-1.3)
[2022-04-18 08:15] LABS: BILIRUBIN,TOTAL 1.1 mg/dL (0.2-1)
[2022-04-18 08:51] LABS: EPI CELLS >36 /uL (0-25.1); HYALINE CASTS 0 /uL (0-3.1); URINE APPEARANCE TURBID; URINE BACTERIA 8 /uL (0-1359); URINE BILIRUBIN NEGATIVE (NEGATIVE); URINE COLOR ORANGE; URINE GLUCOSE (UA) NEGATIVE (NEGATIVE); URINE KETONE NEGATIVE (NEGATIVE); URINE LEUK ESTERASE TRACE (NEGATIVE); URINE NITRITE NEGATIVE (NEGATIVE); URINE PROTEIN 1+ (NEGATIVE); URINE RBC 2363 /uL (0-23.9); URINE WBC 22 /uL (0-25.8)
[2022-04-18 09:05] LABS: INR 1.04 (0.83-1.09)
[2022-04-18] MEDS ORDERED: METOCLOPRAMIDE HCL INJECTION 10 MG/2 ML VIAL IVPB ONE (10:03)
[2022-04-18] MEDS ORDERED: CEFTRIAXONE 1 GM in DEXTROSE 5%-WATER - 100 ML IVPB ONE (10:05)
[2022-04-18] MEDS ORDERED: KETOROLAC TROMETHAMINE 60 MG/2 ML VIAL IVPUSH ONE (10:33)
[2022-04-18] MEDS ORDERED: KETOROLAC TROMETHAMINE 15 MG/ML VIAL ONE (10:39)
[2022-04-18] MEDS ORDERED: METOCLOPRAMIDE HCL INJECTION 10 MG/2 ML VIAL ONE (10:39)
[2022-04-18] MEDS ORDERED: CEFTRIAXONE 1 GM/50 ML BAG ONE (10:40)
[2022-04-18] MEDS ORDERED: morphine CARPU-JECT 4 MG/1 ML DISP.SYRIN IVPUSH ONE (12:11)
[2022-04-18] MEDS ORDERED: morphine SULFATE 4 MG/ML VIAL ONE (12:14)
[2022-04-18] MEDS ORDERED: HYDROmorphone HCl 2 MG/ML VIAL IVPUSH PRN (15:46)
[2022-04-18] MEDS ORDERED: morphine SULFATE 4 MG/ML VIAL IVPUSH PRN (15:46)
[2022-04-18] MEDS ORDERED: ACETAMINOPHEN 1000 MG/100 ML BAG IVPB PRN ×2 (15:47→16:07)
[2022-04-18] MEDS ORDERED: ONDANSETRON 4 MG/2 ML VIAL IVPUSH PRN (16:23)
[2022-04-18] MEDS ORDERED: SODIUM CHLORIDE 1,000 ML IV SCH (16:30)
[2022-04-18 20:40] VITALS: BMI 21.2
[2022-04-18] MEDS: DIVALPROEX NA *ER* EXTEND REL 500 MG TABLET.SA (FP) PO SCH (21:25)
[2022-04-19 07:34] LABS: BASO % 0.2 % (0-2.0); EOS % 0.7 % (0-4.5); HEMATOCRIT 36.4 % (32.4-45.2); HEMOGLOBIN 12.5 GM/dL (10.7-15.3); LYMPH % 23.4 % (8-40); MCH 32.2 pg (25.7-33.7); MCHC 34.4 g/dl (32.0-36.0); MEAN CELL VOLUME 93.6 fl (80-96); MEAN PLT VOLUME 7.7 fl (7.5-11.1); MONO % 6.1 % (3.8-10.2); NEUT % 69.6 % (42.8-82.8); PLATELET COUNT 217 10^3/uL (134-434); RBC 3.89 M/mm3 (3.60-5.2); WHITE BLOOD COUNT 7.1 K/mm3 (4.0-10.0)
[2022-04-19 08:12] LABS: CALCIUM 8.5 mg/dL (8.5-10.1)
[2022-04-19 08:13] LABS: BLOOD UREA NITROGEN 7.8 mg/dL (7-18)
[2022-04-19 08:16] LABS: CREATININE 0.5 mg/dL (0.55-1.3)
[2022-04-19] MEDS: DIVALPROEX NA *ER* EXTEND REL 500 MG TABLET.SA (FP) PO SCH (10:03)
[2022-04-19] MEDS: CEFTRIAXONE 1 GM in DEXTROSE 5%-WATER - 50 ML IVPB SCH (10:03)
[2022-04-19] MEDS ORDERED: POTASSIUM CHLORIDE TABS 20 MEQ TABLET.ER (FP) PO ONE (13:37)
[2022-04-19] MEDS: ENOXAPARIN NA (PORCINE) 40 MG/0.4 ML DISP.SYRIN SQ SCH (13:39)
[2022-04-19] MEDS: TAMSULOSIN HCL 0.4 MG CAP PO SCH (14:15)
[2022-04-19] MEDS ORDERED: traZODone HCL 50 MG TABLET (FP) ONE (21:05)
[2022-04-19] MEDS: busPIRone HCL 10 MG TABLET (FP) PO SCH (21:18)
[2022-04-19] MEDS: traZODone HCL 50 MG TABLET (FP) PO SCH (22:00)
[2022-04-20] MEDS: busPIRone HCL 10 MG TABLET (FP) PO SCH ×3 (06:06→22:34)
[2022-04-20 08:19] LABS: HEMATOCRIT 41.4 % (32.4-45.2); HEMOGLOBIN 13.7 GM/dL (10.7-15.3); MCH 30.8 pg (25.7-33.7); MCHC 33.1 g/dl (32.0-36.0); MEAN CELL VOLUME 93.3 fl (80-96); MEAN PLT VOLUME 8.2 fl (7.5-11.1); PLATELET COUNT 249 10^3/uL (134-434); RBC 4.44 M/mm3 (3.60-5.2); RDW 13.1 % (11.6-15.6); WHITE BLOOD COUNT 5.9 K/mm3 (4.0-10.0)
[2022-04-20 08:45] LABS: BLOOD UREA NITROGEN 6.8 mg/dL (7-18); PHOSPHOROUS 2.5 mg/dL (2.5-4.9)
[2022-04-20 08:46] LABS: ALBUMIN 3.8 g/dl (3.4-5.0)
[2022-04-20 08:49] LABS: CREATININE 0.5 mg/dL (0.55-1.3)
[2022-04-20 08:51] LABS: CALCIUM 9.2 mg/dL (8.5-10.1); MAGNESIUM 2.1 mg/dL (1.8-2.4)
[2022-04-20] MEDS: TAMSULOSIN HCL 0.4 MG CAP PO SCH ×2 (08:55→11:54)
[2022-04-20] MEDS ORDERED: MIDAZOLAM HCL 2 MG/2 ML SINGLE DOSE VIAL ONE (09:03)
[2022-04-20] MEDS ORDERED: PROPOFOL 20 ML ONE (09:03)
[2022-04-20] MEDS ORDERED: SUCCINYLCHOLINE CHLORIDE 200 MG/10 ML SYRINGE ONE (09:06)
[2022-04-20] MEDS ORDERED: ESCITALOPRAM OXALATE 20 MG TABLET PO SCH (10:00)
[2022-04-20] MEDS ORDERED: DEXAMETHASONE SOD PHOSPHATE 4 MG/1 ML VIAL ONE (10:02)
[2022-04-20] MEDS ORDERED: KETOROLAC TROMETHAMINE 30 MG/1 ML VIAL ONE (10:02)
[2022-04-20] MEDS ORDERED: ONDANSETRON 4 MG/2 ML VIAL ONE (10:02)
[2022-04-20] MEDS ORDERED: oxyCODONE HCL 5 MG TABLET PO PRN (10:43)
[2022-04-20] MEDS ORDERED: LACTATED RINGERS SOLUTION 1,000 ML IV SCH (10:45)
[2022-04-20] MEDS ORDERED: HYDROmorphone HCl 2 MG/ML VIAL IVPUSH PRN (11:12)
[2022-04-20] MEDS ORDERED: ONDANSETRON 4 MG/2 ML VIAL IVPUSH PRN (11:12)
[2022-04-20] MEDS: traZODone HCL 50 MG TABLET (FP) PO SCH ×2 (11:54→22:34)
[2022-04-20] MEDS: DIVALPROEX NA *ER* EXTEND REL 500 MG TABLET.SA (FP) PO SCH (11:54)
[2022-04-20] MEDS: ENOXAPARIN NA (PORCINE) 40 MG/0.4 ML DISP.SYRIN SQ SCH (11:54)
[2022-04-20] MEDS: CEFTRIAXONE 1 GM in DEXTROSE 5%-WATER - 50 ML IVPB SCH (11:55)
[2022-04-20] MEDS: morphine SULFATE 4 MG/ML VIAL IVPUSH PRN ×2 (13:44→22:34)
[2022-04-21 06:27] VITALS: TEMP 97.9
[2022-04-21] MEDS: busPIRone HCL 10 MG TABLET (FP) PO SCH ×2 (06:35→14:23)
[2022-04-21 07:48] LABS: BASO % 0.2 % (0-2.0); EOS % 0.4 % (0-4.5); HEMATOCRIT 35.4 % (32.4-45.2); LYMPH % 24.7 % (8-40); MCH 31.4 pg (25.7-33.7); MCHC 33.9 g/dl (32.0-36.0); MEAN CELL VOLUME 92.8 fl (80-96); MEAN PLT VOLUME 7.9 fl (7.5-11.1); MONO % 7.2 % (3.8-10.2); NEUT % 67.5 % (42.8-82.8); PLATELET COUNT 222 10^3/uL (134-434); RBC 3.82 M/mm3 (3.60-5.2); RDW 12.9 % (11.6-15.6); WHITE BLOOD COUNT 9.5 K/mm3 (4.0-10.0)
[2022-04-21 08:09] LABS: BLOOD UREA NITROGEN 11.9 mg/dL (7-18); CALCIUM 8.8 mg/dL (8.5-10.1)
[2022-04-21 08:12] LABS: CREATININE 0.7 mg/dL (0.55-1.3)
[2022-04-21 08:14] LABS: BILIRUBIN,TOTAL 0.8 mg/dL (0.2-1); TOT PROT 5.7 g/dl (6.4-8.2)
[2022-04-21] MEDS ORDERED: TAMSULOSIN HCL 0.4 MG CAP PO SCH (08:30)
[2022-04-21] MEDS: traZODone HCL 50 MG TABLET (FP) PO SCH (09:50)
[2022-04-21] MEDS ORDERED: ESCITALOPRAM OXALATE 20 MG TABLET PO SCH (10:00)
[2022-04-21] MEDS ORDERED: DIVALPROEX NA *ER* EXTEND REL 500 MG TABLET.SA (FP) PO SCH (10:00)
[2022-04-21] MEDS ORDERED: CEFTRIAXONE 1 GM in DEXTROSE 5%-WATER - 50 ML IVPB SCH (10:00)
[2022-04-21] MEDS ORDERED: ENOXAPARIN NA (PORCINE) 40 MG/0.4 ML DISP.SYRIN SQ SCH (10:00)
[2022-04-21 11:14] VITALS: BP 103/68; PULSE 84; RESP 18
[2022-04-26 12:07] LABS: CA OXALATE MONOHYDR. 40 % (.); SIZE 4x3 mm (.); SOURCE Ureter (.)
== END 2022-04-21 15:15 | disposition home or self-care (01) ==
LOC: JER 06:35 → JERBED 15:07 → J7W 20:18
PROVIDERS: ADMIT Internal Medicine; ATTEND Internal Medicine
PROC: 0TC38ZZ Extirpation of Matter from Right Kidney Pelvis, Via Natural or Artificial Opening Endoscopic (ICD-10-PCS; principal; 2022-04-18)
PROC: 0TC68ZZ Extirpation of Matter from Right Ureter, Via Natural or Artificial Opening Endoscopic (ICD-10-PCS; 2022-04-18)
PROC: 0T768DZ Dilation of Right Ureter with Intraluminal Device, Via Natural or Artificial Opening Endoscopic (ICD-10-PCS; 2022-04-18)
PROC: 3E033NZ Introduction of Analgesics, Hypnotics, Sedatives into Peripheral Vein, Percutaneous Approach (ICD-10-PCS; 2022-04-18)
PROC: 3E03329 Introduction of Other Anti-infective into Peripheral Vein, Percutaneous Approach (ICD-10-PCS; 2022-04-18)
PROC: 3E033GC Introduction of Other Therapeutic Substance into Peripheral Vein, Percutaneous Approach (ICD-10-PCS; 2022-04-18)
PROC: 3E0333Z Introduction of Anti-inflammatory into Peripheral Vein, Percutaneous Approach (ICD-10-PCS; 2022-04-18)
PROC: 3E0337Z Introduction of Electrolytic and Water Balance Substance into Peripheral Vein, Percutaneous Approach (ICD-10-PCS; 2022-04-18)
DX: N13.30 Unspecified hydronephrosis (principal); N20.9 Urinary calculus, unspecified; R10.9 Unspecified abdominal pain; R56.9 Unspecified convulsions; D64.9 Anemia, unspecified; K25.9 Gastric ulcer, unspecified as acute or chronic, without hemorrhage or perforation
CPT/HCPCS: 96361; 96365; 96366; 96375; 96376; S2070; 0241U-QW; 36415; 74176-TC; 76000-TC-FY; 76775-TC; 76856-TC; 80048; 80053; 81003; 82360; 83690; 83735; 84100; 85025; 85027; 85610; 87086; 88108; 88300-TC; 93005; 93010; 94010; 94760; 99285-25; C2617; G0378

== ENCOUNTER 2022-09-05 12:22 | Observation (INO) | payer OTHER ==
[2022-09-05 15:27] LABS: BASO % 0.1 % (0-2.0); EOS % 1.1 % (0-4.5); HEMATOCRIT 40.2 % (32.4-45.2); HEMOGLOBIN 14.2 GM/dL (10.7-15.3); LYMPH % 20.2 % (8-40); MCH 32.8 pg (25.7-33.7); MCHC 35.3 g/dl (32.0-36.0); MEAN PLT VOLUME 9.1 fl (7.5-11.1); MONO % 9.1 % (3.8-10.2); NEUT % 69.5 % (42.8-82.8); PLATELET COUNT 180 10^3/uL (134-434); RBC 4.32 M/mm3 (3.60-5.2); RDW 13.4 % (11.6-15.6); WHITE BLOOD COUNT 5.9 K/mm3 (4.0-10.0)
[2022-09-05 15:33] LABS: PROTHROMBIN TIME (PATIENT) 11.6 SEC (9.7-13.0)
[2022-09-05 15:36] LABS: ACTIVATED PTT 29.9 SECONDS (25.2-36.5)
[2022-09-05 15:51] LABS: CALCIUM 8.9 mg/dL (8.5-10.1)
[2022-09-05 15:53] LABS: ALBUMIN 3.9 g/dl (3.4-5.0); BLOOD UREA NITROGEN 11.3 mg/dL (7-18)
[2022-09-05 15:55] LABS: CREATININE 0.7 mg/dL (0.55-1.3)
[2022-09-05 15:56] LABS: BILIRUBIN,TOTAL 0.9 mg/dL (0.2-1)
[2022-09-05 15:57] LABS: TOT PROT 7.4 g/dl (6.4-8.2)
[2022-09-05 21:11] LABS: MAGNESIUM 1.8 mg/dL (1.8-2.4)
[2022-09-05 21:14] LABS: PHOSPHOROUS 2.6 mg/dL (2.5-4.9)
[2022-09-05] MEDS ORDERED: DIVALPROEX SODIUM 500 MG TABLET E.C. ONE (22:45)
[2022-09-05] MEDS ORDERED: busPIRone HCL 5 MG TABLET ONE (22:45)
[2022-09-05] MEDS ORDERED: propRANOLol HCL 10 MG TABLET ONE (22:46)
[2022-09-05] MEDS: propRANOLol HCL 10 MG TABLET PO SCH (22:48)
[2022-09-05] MEDS: busPIRone HCL 5 MG TABLET PO SCH (22:48)
[2022-09-05] MEDS: DIVALPROEX SODIUM 500 MG TABLET E.C. PO SCH (22:48)
[2022-09-06] MEDS ORDERED: MAG HYDROX/AL HYDROX/SIMETH 30 ML UNIT-DOSE CUP PO ONE (00:29)
[2022-09-06] MEDS ORDERED: SIMETHICONE 80 MG TAB.CHEW (FP) PO ONE (00:29)
[2022-09-06] MEDS ORDERED: ACETAMINOPHEN 1000 MG/100 ML BAG IVPB ONE (01:23)
[2022-09-06 04:29] VITALS: BMI 21.6
[2022-09-06] MEDS: propRANOLol HCL 10 MG TABLET PO SCH ×2 (06:29→13:09)
[2022-09-06] MEDS: busPIRone HCL 5 MG TABLET PO SCH ×2 (06:29→13:09)
[2022-09-06 08:19] LABS: EOS % 1.6 % (0-4.5); HEMATOCRIT 37.8 % (32.4-45.2); HEMOGLOBIN 13.1 GM/dL (10.7-15.3); LYMPH % 26.4 % (8-40); MCHC 34.6 g/dl (32.0-36.0); MEAN CELL VOLUME 92.3 fl (80-96); MONO % 12.2 % (3.8-10.2); NEUT % 59.8 % (42.8-82.8); PLATELET COUNT 167 10^3/uL (134-434); RBC 4.09 M/mm3 (3.60-5.2); RDW 13.3 % (11.6-15.6); WHITE BLOOD COUNT 4.8 K/mm3 (4.0-10.0)
[2022-09-06 08:51] LABS: ALBUMIN 3.4 g/dl (3.4-5.0); CALCIUM 8.5 mg/dL (8.5-10.1); MAGNESIUM 1.9 mg/dL (1.8-2.4)
[2022-09-06 08:54] LABS: CREATININE 0.6 mg/dL (0.55-1.3)
[2022-09-06 08:56] LABS: BILIRUBIN,TOTAL 0.5 mg/dL (0.2-1); TOT PROT 6.4 g/dl (6.4-8.2)
[2022-09-06] MEDS ORDERED: ESCITALOPRAM OXALATE 20 MG TABLET PO SCH (10:00)
[2022-09-06] MEDS ORDERED: ENOXAPARIN NA (PORCINE) 40 MG/0.4 ML DISP.SYRIN SQ SCH (10:00)
[2022-09-06] MEDS: DIVALPROEX SODIUM 500 MG TABLET E.C. PO SCH (10:59)
[2022-09-06] MEDS ORDERED: ACETAMINOPHEN 325 MG TABLET (FP) PO PRN (11:27)
[2022-09-06 14:44] VITALS: BP 100/68; PULSE 82; RESP 16; TEMP 98.2
[2022-09-06] MEDS ORDERED: traZODone HCL 100 MG TABLET (FP) PO SCH (22:00)
== END 2022-09-06 15:48 | disposition home or self-care (01) ==
LOC: JER 12:22 → JERBED 18:08 → J4W 09-06 00:32
PROVIDERS: ADMIT Internal Medicine; ATTEND Internal Medicine
PROC: 3E033NZ Introduction of Analgesics, Hypnotics, Sedatives into Peripheral Vein, Percutaneous Approach (ICD-10-PCS; principal; 2022-09-05)
PROC: 3E023GC Introduction of Other Therapeutic Substance into Muscle, Percutaneous Approach (ICD-10-PCS; 2022-09-05)
DX: R07.89 Other chest pain (principal); K27.9 Peptic ulcer, site unspecified, unspecified as acute or chronic, without hemorrhage or perforation; R00.2 Palpitations; N20.0 Calculus of kidney; R94.31 Abnormal electrocardiogram [ECG] [EKG]; R56.9 Unspecified convulsions; F41.8 Other specified anxiety disorders; F41.0 Panic disorder [episodic paroxysmal anxiety]; R07.1 Chest pain on breathing; Z29.8 Encounter for other specified prophylactic measures; Z88.8 Allergy status to other drugs, medicaments and biological substances
CPT/HCPCS: 36415; 71046-TC-FY; 71275-TC; 80053; 80061; 83735; 84100; 84439; 84443; 84484; 84703; 85025; 85379; 85610; 85730; 93005; 93010; 93306-TC; 93880-TC; 96372; 96374; 99285-25; C9803-CS; G0378; Q9967; U0003; U0005

== ENCOUNTER 2023-10-08 19:17 | Emergency (ER) | payer OTHER ==
[2023-10-08 19:47] VITALS: BP 111/76; PULSE 111; RESP 20; TEMP 98.3; BMI 23.8
[2023-10-08 20:24] LABS: HEMATOCRIT 40.2 % (32.4-45.2); HEMOGLOBIN 13.3 G/dL (10.7-15.3); MCH 31.5 pg (25.7-33.7); MEAN CELL VOLUME 95.2 fl (80-96); MEAN PLT VOLUME 8.2 fl (7.5-11.1); PLATELET COUNT 207.4 10^3/uL (134-434); RBC 4.22 10^6/uL (3.60-5.2); RDW 13.3 % (11.6-15.6); WHITE BLOOD COUNT 4.2 10^3/uL (4.0-10.8)
[2023-10-08 20:50] LABS: ALBUMIN 4.3 g/dl (3.4-5.0); ALK PHOS 73 U/L (45-117); ANION GAP 6 mmol/L (4-13); BILIRUBIN,TOTAL 0.7 mg/dl (0.2-1); CALCIUM 9.1 mg/dl (8.5-10.1); CHLORIDE 102 mmol/L (98-107); CO2 29 mmol/L (21-32); CREATININE 0.9 mg/dl (0.6-1.3); GLUCOSE,RANDOM 96 mg/dl (74-106); POTASSIUM 3.7 mmol/L (3.5-5.1); SGOT/AST 14 U/L (15-37); SGPT/ALT 11 U/L (7-52); SODIUM 137 mmol/L (136-145); TOT PROT 6.4 g/dl (6.4-8.2)
== END 2023-10-08 22:11 | disposition home or self-care (01) ==
LOC: FER 19:17
DX: R51.9 Headache, unspecified (principal)
CPT/HCPCS: 36415; 80053; 85027; 86140; 99283-25

== ENCOUNTER 2023-11-24 16:03 | Emergency (ER) | payer OTHER ==
[2023-11-24 16:49] VITALS: BP 112/79; PULSE 77; RESP 20; TEMP 98.2; BMI 23.6
== END 2023-11-24 17:22 | disposition home or self-care (01) ==
LOC: FER 16:03
DX: T78.40XA Allergy, unspecified, initial encounter (principal); R21 Rash and other nonspecific skin eruption
CPT/HCPCS: 99283-25

== ENCOUNTER 2023-12-07 11:55 | Emergency (ER) | payer OTHER ==
[2023-12-07 12:05] VITALS: TEMP 98.3; BMI 22.1
[2023-12-07] MEDS ORDERED: ACETAMINOPHEN INJECTION 100 ML IVPB ONE (13:06)
[2023-12-07] MEDS ORDERED: ONDANSETRON 4 MG/2 ML VIAL ONE ×2 (13:06→14:58)
[2023-12-07] MEDS ORDERED: FAMOTIDINE 20 MG/50 ML IVPB 20 MG/50 ML MG IVPB ONE (13:06)
[2023-12-07] MEDS: FAMOTIDINE 20 MG/50 ML IVPB 20 MG/50 ML MG IVPB ONE (13:19)
[2023-12-07] MEDS: ONDANSETRON 4 MG/2 ML VIAL IVPUSH ONE ×2 (13:19→15:01)
[2023-12-07] MEDS: ACETAMINOPHEN 1000 MG/100 ML BAG IVPB ONE (13:19)
[2023-12-07] MEDS: LACTATED RINGERS SOLUTION 1000 ML INFUS.BAG IV ONE (13:20)
[2023-12-07 13:22] LABS: BASO % 0.1 % (0-2.0); EOS % 0.7 % (0-4.5); HEMATOCRIT 42.6 % (32.4-45.2); HEMOGLOBIN 14.8 GM/dL (10.7-15.3); LYMPH % 6.2 % (8-40); MCH 32.2 pg (25.7-33.7); MCHC 34.8 g/dl (32.0-36.0); MEAN CELL VOLUME 92.5 fl (80-96); MEAN PLT VOLUME 7.5 fl (7.5-11.1); MONO % 4.3 % (3.8-10.2); NEUT % 88.7 % (42.8-82.8); PLATELET COUNT 260 10^3/uL (134-434); RDW 13.4 % (11.6-15.6); WHITE BLOOD COUNT 9.8 K/mm3 (4.0-10.0)
[2023-12-07 13:49] LABS: POTASSIUM 4.4 mmol/L (3.5-5.1)
[2023-12-07 13:51] LABS: CALCIUM 9.5 mg/dL (8.5-10.1)
[2023-12-07 13:52] LABS: ALBUMIN 4.1 g/dl (3.4-5.0); BLOOD UREA NITROGEN 11.6 mg/dL (7-18); MAGNESIUM 2.1 mg/dL (1.8-2.4)
[2023-12-07 13:55] LABS: CREATININE 0.7 mg/dL (0.55-1.3)
[2023-12-07 13:56] LABS: BILIRUBIN,TOTAL 1.4 mg/dL (0.2-1)
[2023-12-07 13:57] LABS: TOT PROT 7.4 g/dl (6.4-8.2)
[2023-12-07 16:00] VITALS: BP 100/66; PULSE 87; RESP 16
== END 2023-12-07 16:00 | disposition home or self-care (01) ==
LOC: JER 11:55
PROC: 3E033GC Introduction of Other Therapeutic Substance into Peripheral Vein, Percutaneous Approach (ICD-10-PCS; principal; 2023-12-07)
PROC: 3E033GC Introduction of Other Therapeutic Substance into Peripheral Vein, Percutaneous Approach (ICD-10-PCS; 2023-12-07)
PROC: 3E033NZ Introduction of Analgesics, Hypnotics, Sedatives into Peripheral Vein, Percutaneous Approach (ICD-10-PCS; 2023-12-07)
PROC: 3E033GC Introduction of Other Therapeutic Substance into Peripheral Vein, Percutaneous Approach (ICD-10-PCS; 2023-12-07)
DX: R11.2 Nausea with vomiting, unspecified (principal); R19.7 Diarrhea, unspecified; R10.13 Epigastric pain
CPT/HCPCS: 36415; 80053; 83690; 83735; 85025; 93005; 93010; 99284-25; J0131

== ENCOUNTER 2024-06-02 20:34 | Emergency (ER) | payer OTHER ==
[2024-06-02 20:48] VITALS: BP 110/85; PULSE 85; RESP 17; TEMP 98.1; BMI 21.0
[2024-06-02] MEDS ORDERED: NITROFURANTOIN MONOHYD/M-CRYST 100 MG CAPSULE PO ONE (21:25)
[2024-06-02] MEDS: NITROFURANTOIN MONOHYD/M-CRYST 100 MG CAPSULE PO SCH (21:31)
[2024-06-02] MEDS: PHENAZOPYRIDINE HCL 100 MG TABLET (FP) PO ONE (21:33)
[2024-06-02] MEDS ORDERED: PHENAZOPYRIDINE HCL 100 MG TABLET (FP) ONE (21:37)
== END 2024-06-02 21:39 | disposition home or self-care (01) ==
LOC: FER 20:34
DX: N30.01 Acute cystitis with hematuria (principal)
CPT/HCPCS: 81003; 81015; 87086; 87186; 99283-25